=== PATIENT | male | born 1995 | race Caucasian/White ===

== ENCOUNTER 2018-03-03 22:58 | Emergency (ER) | payer OTHER ==
[2018-03-04] MEDS ORDERED: ONDANSETRON 4 MG/2 ML VIAL ONE (00:10)
[2018-03-04] MEDS ORDERED: PANTOPRAZOLE 40 MG INJ ONE (00:10)
[2018-03-04] MEDS ORDERED: MEPERIDINE HCL 50 MG/ML AMP ONE (00:10)
[2018-03-04] MEDS ORDERED: NA CHLORIDE 0.9% 1,000 ML ONE (00:10)
[2018-03-04 00:20] LABS: Absolute Monocytes 0.6 K/uL (0.1-1.3); Absolute Neutrophil 5.2 K/uL (1.8-8.0); Eosinophils % 3.1 % (0-4.4); Hematocrit 41.7 % (39.6-49.0); Lymphocytes % 24.7 % (15.3-44.8); MCH 31.4 pg (27.0-35.0); MPV 8.1 fL (7.6-11.3); Monocytes % 7.8 % (3.3-12.3); RBC Red Blood Cell Count 4.58 M/uL (4.33-5.43)
[2018-03-04 00:44] LABS: Urine Blood NEGATIVE (NEG); Urine Glucose NEGATIVE (NEG); Urine Protein NEGATIVE (NEG)
[2018-03-04 01:12] LABS: ALT/SGPT 75 U/L (12-78); AST/SGOT 23 U/L (15-37); Albumin 4.2 g/dL (3.4-5.0); Alkaline Phosphatase 105 U/L (45-117); Amylase Level 40 U/L (25-115); BUN Blood Urea Nitrogen 15 mg/dL (7-18); Bicarbonate 28 mmol/L (21-32); Bilirubin Direct 0.1 mg/dL (0-0.2); Bilirubin Total 0.5 mg/dL (0.2-1.0); Glucose Level 91 mg/dL (74-106); Lipase 100 U/L (73-393); Potassium 3.8 mmol/L (3.5-5.1); Protein, Total 7.5 g/dL (6.4-8.2); Sodium Level 141 mmol/L (136-145)
[2018-03-04 02:09] LABS: Urine Bacteria <20 /HPF (NONE SEEN); Urine Culture Reflex Order NOT NEEDED; Urine Mucus 1+ /HPF (NONE SEEN); Urine RBC <5 /HPF (NONE SEEN)
--- NOTE | 2018-03-04 02:19 | EDPHYS ---
Physician Documentation [facility] Name: Cole Ball Age: 22 yrs Sex: Male : 1995 Arrival Date: 03/03/2018 Time: 23:31 Bed 19 Private MD: ED Physician Karl Villanueva HPI: 03/04 00:18 This 22 yrs old Male presents to ER via Ambulatory with complaints of pkl Abdominal Pain. 00:18 The patient presents with abdominal pain in the upper abdomen. Onset: The pkl symptoms/episode began/occurred 2 day(s) ago. The symptoms do not radiate. Associated signs and symptoms: Pertinent positives: diarrhea. Historical: - Allergies: 03/03 23:33 Sulfa (Sulfonamide Antibiotics); fc - Home Meds: 23:33 None [Active]; fc - PMHx: 23:33 mitral valve prolapse; ulcerative colitis; fc - PSHx: 23:33 Ear Tubes; fc - Immunization history:: Last tetanus immunization: up to date. - Social history:: Smoking status: Patient/guardian denies using tobacco. - Ebola Screening: : Patient negative for fever greater than or equal to 101.5 degrees Fahrenheit, and additional compatible Ebola Virus Disease symptoms Patient denies exposure to infectious person Patient denies travel to an Ebola-affected area in the 21 days before illness onset. ROS: 03/04 00:18 Eyes: Negative for injury, pain, redness, and discharge, ENT: Negative for injury, pkl pain, and discharge, Neck: Negative for injury, pain, and swelling, Cardiovascular: Negative for chest pain, palpitations, and edema, Respiratory: Negative for shortness of breath, cough, wheezing, and pleuritic chest pain. Abdomen/GI: Positive for nausea, diarrhea, bloody. Back: Negative for acute changes. : Negative for urinary symptoms. MS/extremity: Negative for acute changes. Skin: Negative for rash. Neuro: Negative for altered mental status. Exam: 00:18 Head/Face: Normocephalic, atraumatic. Eyes: Pupils equal round and reactive to light, pkl extra-ocular motions intact. Lids and lashes normal. Conjunctiva and sclera are non-icteric and not injected. Cornea within normal limits. Periorbital areas with no swelling, redness, or edema. ENT: Nares patent. No nasal discharge, no septal abnormalities noted. Tympanic membranes are normal and external auditory canals are clear. Oropharynx with no redness, swelling, or masses, exudates, or evidence of obstruction, uvula midline. Mucous membranes moist. Neck: Trachea midline, no thyromegaly or masses palpated, and no cervical lymphadenopathy. Supple, full range of motion without nuchal rigidity, or vertebral point tenderness. No Meningismus. Chest/axilla: Normal chest wall appearance and motion. Nontender with no deformity. No lesions are appreciated. Cardiovascular: Regular rate and rhythm with a normal S1 and S2. No gallops, murmurs, or rubs. Normal PMI, no JVD. No pulse deficits. Respiratory: Lungs have equal breath sounds bilaterally, clear to auscultation and percussion. No rales, rhonchi or wheezes noted. No increased work of breathing, no retractions or nasal flaring. 00:18 Abdomen/GI: Bowel sounds: normal, Palpation: mild abdominal tenderness, in the right upper quadrant and left upper quadrant. 00:18 Back: Exam negative for acute changes. 00:18 : Exam negative for acute changes. 00:18 Musculoskeletal/extremity: Exam is negative for acute changes. 00:18 Skin: Exam negative for rash. 00:18 Neuro: Orientation: is normal, Mentation: Cranial nerves: grossly normal, Motor: is normal. Vital Signs: 03/03 23:33 BP 129 / 97; Pulse 71; Resp 20; Temp 97.7(O); Pulse Ox 100% on R/A; Weight 70.31 kg fc (R); Height 5 ft. 10 in. (177.80 cm) (R); Pain 8/10; 03/04 00:19 BP 123 / 80; Pulse 64; Resp 16; Pulse Ox 98% on R/A; lp1 01:00 BP 125 / 77; Pulse 61; Resp 16; Pulse Ox 98% on R/A; lp1 02:00 BP 117 / 79; Pulse 62; Resp 16; Pulse Ox 99% on R/A; lp1 03/03 23:33 Body Mass Index 22.24 (70.31 kg, 177.80 cm) fc MDM: 03/03 23:49 Patient medically screened. pkl 03/04 02:17 Data reviewed: vital signs, nurses notes, lab test result(s). ED course: Patient left pkl before CT Scan done. Signed AMA. 03/03 23:55 Order name: Amylase, Serum; Complete Time: 02:00 pkl 03/03 23:55 Order name: Basic Metabolic Panel; Complete Time: 02:00 pkl 03/03 23:55 Order name: CBC with Diff; Complete Time: 02:00 pkl 03/03 23:55 Order name: Creatinine for Radiology; Complete Time: 02:00 pkl 03/03 23:55 Order name: Hepatic Function; Complete Time: 02:00 pkl 03/03 23:55 Order name: Lipase; Complete Time: 02:00 pkl 03/03 23:55 Order name: Urine Microscopic Only; Complete Time: 03:07 pkl 03/04 00:03 Order name: Urine Dipstick--Ancillary (enter results); Complete Time: 02:00 ms 03/03 23:55 Order name: IV Saline Lock; Complete Time: 00:17 pkl 03/03 23:55 Order name: Labs collected and sent; Complete Time: 00:17 pkl 03/03 23:55 Order name: Urine Dipstick-Ancillary (obtain specimen); Complete Time: 00:02 pkl Administered Medications: 00:17 Drug: NS 0.9% 1000 ml Route: IV; Rate: 1000 ml; Site: right antecubital; lp1 02:19 Follow up: IV Status: Completed infusion; IV Intake: 1000ml lp1 00:17 Drug: Demerol 50 mg Route: IVP; Site: right antecubital; lp1 01:04 Follow up: Response: Pain is decreased lp1 00:17 Drug: Zofran 4 mg Route: IVP; Site: right antecubital; lp1 01:37 Follow up: Response: No adverse reaction lp1 00:17 Drug: ProTONIX 40 mg Route: IVP; Site: right antecubital; lp1 01:37 Follow up: Response: No adverse reaction lp1 Disposition: 03/04/18 02:19 Patient has left against medical advice. - Patients states they are going to Home. - Condition is Stable. Signatures: Dispatcher [employer] EDMS Karl Villanueva MD MD pkl Cheryl Esteves RN RN Leigha Calderon RN RN lp1
--- NOTE | 2018-03-04 02:19 | ER ---
Nurse's Notes [facility] Name: Cole Ball Age: 22 yrs Sex: Male : 1995 Arrival Date: 03/03/2018 Time: 23:31 Bed 19 Private MD: Diagnosis: Presentation: 03/03 23:31 Presenting complaint: Patient states: that for 2 days he has been having upper abd pain fc and diarrhea. States that he is having blood in his diarrhea. Also having nausea and vomiting. Transition of care: patient was not received from another setting of care. Onset of symptoms was March 01, 2018. Risk Assessment: Do you want to hurt yourself or someone else? Patient reports no desire to harm self or others. Care prior to arrival: None. 23:31 Method Of Arrival: Ambulatory 23:31 Acuity: CHRIS 3 03/04 00:20 Initial Sepsis Screen: Does the patient meet any 2 criteria? No. Patient's initial lp1 sepsis screen is negative. Does the patient have a suspected source of infection? No. Patient's initial sepsis screen is negative. Historical: - Allergies: 03/03 23:33 Sulfa (Sulfonamide Antibiotics); fc - Home Meds: 23:33 None [Active]; fc - PMHx: 23:33 mitral valve prolapse; ulcerative colitis; fc - PSHx: 23:33 Ear Tubes; fc - Immunization history:: Last tetanus immunization: up to date. - Social history:: Smoking status: Patient/guardian denies using tobacco. - Ebola Screening: : Patient negative for fever greater than or equal to 101.5 degrees Fahrenheit, and additional compatible Ebola Virus Disease symptoms Patient denies exposure to infectious person Patient denies travel to an Ebola-affected area in the 21 days before illness onset. Screenin/28 00:20 Abuse screen: Denies threats or abuse. Denies injuries from another. Nutritional lp1 screening: No deficits noted. Tuberculosis screening: No symptoms or risk factors identified. Fall Risk None identified. Assessment: 00:18 General: Appears uncomfortable, Behavior is appropriate for age. Pain: Complains of lp1 pain in epigastric area Pain currently is 9 out of 10 on a pain scale. Quality of pain is described as stabbing, Pain began 2-3 days ago. Neuro: Level of Consciousness is awake, alert, obeys commands. Cardiovascular: Patient's skin is warm and dry. Respiratory: Respiratory effort is even, unlabored, Respiratory pattern is regular, Breath sounds are clear bilaterally. GI: Abdomen is non-distended, Bowel sounds present X 4 quads. Abdomen is tender to palpation in epigastric area Reports rectal bleeding, nausea. : No signs and/or symptoms were reported regarding the genitourinary system. EENT: No signs and/or symptoms were reported regarding the EENT system. Derm: Skin is pink, warm \\T\\ dry. Musculoskeletal: Circulation, motion, and sensation intact. 01:30 Reassessment: Patient appears in no apparent distress at this time. Patient and/or lp1 family updated on plan of care and expected duration. Pain level reassessed. Pain decreased at this time. 02:15 Reassessment: Patient declines to have CT done. Reassessment: Patient states "I don't lp1 want to wait anymore, I'd rather be asleep in my bed"; Patient states abdominal pain returned but does not want to wait for CT results; Patient states "I just need to get a work note"; Provider aware. Vital Signs: 03/03 23:33 BP 129 / 97; Pulse 71; Resp 20; Temp 97.7(O); Pulse Ox 100% on R/A; Weight 70.31 kg fc (R); Height 5 ft. 10 in. (177.80 cm) (R); Pain 8/10; 03/04 00:19 BP 123 / 80; Pulse 64; Resp 16; Pulse Ox 98% on R/A; lp1 01:00 BP 125 / 77; Pulse 61; Resp 16; Pulse Ox 98% on R/A; lp1 02:00 BP 117 / 79; Pulse 62; Resp 16; Pulse Ox 99% on R/A; lp1 03/03 23:33 Body Mass Index 22.24 (70.31 kg, 177.80 cm) ED Course: 03/03 23:31 Patient arrived in ED. fc 23:32 Triage completed. fc 23:33 Arm band placed on Patient placed in an exam room, on a stretcher. fc 23:39 Leigha Calderon RN is Primary Nurse. lp1 23:49 Karl Villanueva MD is Attending Physician. pkl 03/04 00:07 Inserted saline lock: 20 gauge in right antecubital area, using aseptic technique. oe Blood collected. 00:20 Patient has correct armband on for positive identification. Pulse ox on. NIBP on. lp1 02:17 No provider procedures requiring assistance completed. IV discontinued, No lp1 redness/swelling at site. Pressure dressing applied. Administered Medications: 00:17 Drug: NS 0.9% 1000 ml Route: IV; Rate: 1000 ml; Site: right antecubital; lp1 02:19 Follow up: IV Status: Completed infusion; IV Intake: 1000ml lp1 00:17 Drug: Demerol 50 mg Route: IVP; Site: right antecubital; lp1 01:04 Follow up: Response: Pain is decreased lp1 00:17 Drug: Zofran 4 mg Route: IVP; Site: right antecubital; lp1 01:37 Follow up: Response: No adverse reaction lp1 00:17 Drug: ProTONIX 40 mg Route: IVP; Site: right antecubital; lp1 01:37 Follow up: Response: No adverse reaction lp1 Intake: 02:19 IV: 1000ml; Total: 1000ml. lp1 Outcome: 02:17 AMA AMA form signed lp1 02:17 Condition: stable 02:17 Instructed on returning if symptoms return or worsen 02:19 Patient left the ED. lp1 Signatures: Karl Villanueva MD MD pkl Chretien, Felicia RN RN Leigha Calderon RN RN lp1 Frandy Rajan Corrections: (The following items were deleted from the chart) 02:18 02:15 Reassessment: Patient states "I don't want to wait anymore, I'd rather be asleep lp1 in my bed"; Patient states abdominal pain returned but does not want to wait for CT results; Provider aware lp1
== END 2018-03-04 02:19 | disposition left against medical advice (07) ==
LOC: ER 22:58
DX: R10.10 Upper abdominal pain, unspecified (principal); R19.7 Diarrhea, unspecified; Z88.0 Allergy status to penicillin
CPT/HCPCS: 36415; 80048; 80076; 81003; 81015; 82150; 83690; 85025; 96361; 96374; 96375; 99284; C9113; J2175; J2405; J7030

== ENCOUNTER 2018-12-25 17:42 | Emergency (ER) | payer OTHER ==
--- OUTSIDE RECORDS SUMMARY | 2018-12-25 17:44 | XMS REPORT | Summary of Care ---
:1995 Author Organization [facility] Address [address] [place] [id number] Encounter HQ Kavya(FIN) [id number] Date(s): 03/05/18 - 03/05/[address] [phone] Encounter Diagnosis Epigastric pain (Final) - 03/09/18 Personal history of nicotine dependence (Final) - Nausea (Final) - Abdominal pain, acute, epigastric (Discharge Diagnosis) - 03/05/18 Discharge Disposition: Home or Self Care Attending Physician: Gilberto Rodríguez MD Vital Signs Most recent to oldest [Reference Range]: 1 2 Height 165.1 cm (03/05/18 12:40 PM) Temperature Oral [96.4-99.1 DegF] 98.4 DegF 98.4 DegF (03/05/18 3:32 PM) (03/05/18 12:40 PM) Blood Pressure [90-140/60-90 mmHg] 123/68 mmHg 128/79 mmHg (03/05/18 3:32 PM) (03/05/18 12:40 PM) Respiratory Rate [14-20 BRMIN] 18 BRMIN 18 BRMIN (03/05/18 3:32 PM) (03/05/18 12:40 PM) Peripheral Pulse Rate [60-100 bpm] 67 bpm 82 bpm (03/05/18 3:32 PM) (03/05/18 12:40 PM) Weight 70.455 kg (03/05/18 12:40 PM) Body Mass Index 25.85 m2 (03/05/18 12:40 PM) Problem List No data available for this section Allergies, Adverse Reactions, Alerts Substance Reaction Severity Status sulfa drugs Active Medications GI cocktail 30 mL, Route: PO, Drug Form: SUSP, Dosing Weight 70.455, kg, ONCE, STAT, Start date: 03/05/18 12:42:00 CDT, Stop date: 03/05/18 12:42:00 CDT Notes: G.I. Cocktail - aluminum hydroxide/magnesium hydroxide/lidocaine/ simethicone Start Date: 03/05/18 Stop Date: 03/05/18 Status: Completedmorphine Sulfate 4 mg, 1 mL, Route: IVP, Drug form: SOLN, ONCE, Dosing Weight 70.455, kg, Priority: STAT, Start date:03/05/18 12:42:00 CDT, Stop date: 03/05/18 12:42:00 CDT Notes: (Same as:MORPhine Sulfate) Start Date: 03/05/18 Stop Date: 03/05/18 Status: Completedondansetron 4 mg, 2 mL, Route: IVP, Drug form: INJ, ONCE, Dosing Weight 70.455, kg, Priority : STAT, Start date: 03/05/18 12:42:00 CDT, Stop date: 03/05/18 12:42:00 CDT Notes: (Same as: Laurence) MEDICATION WASTE Product Size: 4 mgProduct Wasted: ___ mg Start Date: 03/05/18 Stop Date: 03/05/18 Status: CompletedPepcid 40 mg oral tablet 40 mg=1 tab, PO, Daily, # 30 tab, 0 Refill(s) Start Date: 03/05/18 Stop Date: 04/04/18 Status: OrderedSaline Flush 0.9% 10 mL, Route: IVP, Drug Form: INJ, Dosing Weight 70.455, kg, PRN, PRN Line Flush , Start date: 03/05/18 12:42:00 CDT, Duration: 30 day, Stop date: 04/04/18 12:41 :00 CDT Notes: (Same as: BD Posiflush) Start Date: 03/05/18 Stop Date: 03/05/18 Status: DiscontinuedSodium Chloride 0.9% (Bolus) IV 1,000 mL, 1000 ml/hr, Infuse Over: 1 hr, Route: IV, 1,000, Drug form: INJ, ONCE , Priority: STAT, Dosing Weight 70.455 kg, Start date: 03/05/18 12:42:00 CDT, Stop date: 03/05/18 12:42:00 CDT Start Date: 03/05/18 Stop Date: 03/05/18 Status: Completed Results ELECTROLYTES Most recent to oldest [Reference Range]: 1 Sodium Lvl [135-145 mEq/L] 141 mEq/L (03/05/18 1:56 PM) Potassium Lvl [3.5-5.1 mEq/L] 4.1 mEq/L (03/05/18 1:56 PM) Chloride Lvl [95-109 mEq/L] 104 mEq/L (03/05/18 1:56 PM) CO2 [24-32 mEq/L] 33 mEq/L *HI* (03/05/18 1:56 PM) AGAP [10.0-20.0 mEq/L] 8.1 mEq/L *LOW* (03/05/18 1:56 PM) CHEM PANEL Most recent to oldest [Reference Range]: 1 Creatinine Lvl [0.50-1.40 mg/dL] 0.96 mg/dL (03/05/18 1:56 PM) eGFR 112 mL/min/1.73m2 1 *NA* (03/05/18 1:56 PM) BUN [7-22 mg/dL] 12 mg/dL (03/05/18 1:56 PM) B/C Ratio [6-25] 12 (03/05/18 1:56 PM) Glucose Lvl [70-99 mg/dL] 79 mg/dL (03/05/18 1:56 PM) Total Protein [6.4-8.4 g/dL] 8.1 g/dL (03/05/18 1:56 PM) Albumin Lvl [3.5-5.0 g/dL] 4.6 g/dL (03/05/18 1:56 PM) Globulin [2.7-4.2 g/dL] 3.5 g/dL (03/05/18 1:56 PM) A/G Ratio [0.7-1.6] 1.3 (03/05/18 1:56 PM) Calcium Lvl [8.5-10.5 mg/dL] 9.6 mg/dL (03/05/18 1:56 PM) ALT [0-65 unit/L] 65 unit/L (03/05/18 1:56 PM) AST [0-37 unit/L] 29 unit/L (03/05/18 1:56 PM) Alk Phos [39-136 unit/L] 125 unit/L (03/05/18 1:56 PM) Bili Total [0.2-1.3 mg/dL] 0.6 mg/dL (03/05/18 1:56 PM) Lipase Lvl [73-393 unit/L] 87 unit/L (03/05/18 1:56 PM) 1Result Comment: The eGFR is calculated using the CKD-EPI formula. In most young , healthy individualsthe eGFR will be >90 mL/min/1.73m2. The eGFR declines with age. An eGFR of 60-89 may be normal insome populations, particularly the elderly, for whom the CKD-EPI formula has not been extensively validated. Use of the eGFR is not recommended in the following populations: Individuals with unstable creatinine concentrations, including patients and those with serious co-morbid conditions. Patients with extremes in muscle mass or diet. The data above are obtained from the National Kidney Disease Education Program ( NKDEP) which additionally recommends that when the eGFR is used in patients with extremes of body mass index for purposesof drug dosing, the eGFR should be multiplied by the estimated BMI.URINE AND STOOL Most recent to oldest [Reference Range]: 1 UA Turbidity [Clear] Clear (03/05/18 1:56 PM) UA Color [Yellow] Yellow *NA* (03/05/18 1:56 PM) UA pH [5.0-8.0] 6.0 (03/05/18 1:56 PM) UA Spec Grav [<=1.030] 1.017 (03/05/18 1:56 PM) UA Glucose [Negative mg/dL] Negative mg/dL *NA* (03/05/18 1:56 PM) UA Blood [Negative] Negative (03/05/18 1:56 PM) UA Ketones [Negative mg/dL] Negative mg/dL *NA* (03/05/18 1:56 PM) UA Protein [Negative mg/dL] Negative mg/dL (03/05/18 1:56 PM) UA Urobilinogen [0.1-1.0 mg/dL] 2.0 mg/dL *HI* (03/05/18 1:56 PM) UA Bili [Negative] Negative *NA* (03/05/18 1:56 PM) UA Leuk Est [Negative] Negative (03/05/18 1:56 PM) UA Nitrite [Negative] Negative (03/05/18 1:56 PM) UA WBC [0-5 /HPF] <1 /HPF (03/05/18 1:56 PM) UA RBC [0-2 /HPF] 7 /HPF *HI* (03/05/18 1:56 PM) UA Bacteria [None Seen /HPF] Occasional /HPF *NA* (03/05/18 1:56 PM) UA Sq Epi [Few /LPF] Occasional /LPF *NA* (03/05/18 1:56 PM) UA Mucus [None Seen /LPF] Many /LPF *ABN* (03/05/18 1:56 PM) Occult Bld Stl [Negative] Negative (03/05/18 2:03 PM) HEMATOLOGY Most recent to oldest [Reference Range]: 1 WBC [3.7-10.4 K/CMM] 6.6 K/CMM (03/05/18 1:56 PM) RBC [4.70-6.10 M/CMM] 4.97 M/CMM (03/05/18 1:56 PM) Hgb [14.0-18.0 g/dL] 15.6 g/dL (03/05/18 1:56 PM) Hct [42.0-54.0 %] 44.7 % (03/05/18 1:56 PM) MCV [80.0-94.0 fL] 89.8 fL (03/05/18 1:56 PM) MCH [27.0-31.0 pg] 31.3 pg *HI* (03/05/18 1:56 PM) MCHC [32.0-36.0 g/dL] 34.8 g/dL (03/05/18 1:56 PM) RDW [11.5-14.5 %] 12.9 % (03/05/18 1:56 PM) MPV [7.4-10.4 fL] 8.0 fL (03/05/18 1:56 PM) Platelet [133-450 K/CMM] 311 K/CMM (03/05/18 1:56 PM) Segs [45.0-75.0 %] 51.6 % (03/05/18 1:56 PM) Lymphocytes [20.0-40.0 %] 33.2 % (03/05/18 1:56 PM) Monocytes [2.0-12.0 %] 8.3 % (03/05/18 1:56 PM) Eosinophils [0.0-4.0 %] 5.8 % *HI* (03/05/18 1:56 PM) Basophils [0.0-1.0 %] 1.1 % *HI* (03/05/18 1:56 PM) Neutrophils # [1.5-8.1 K/CMM] 3.4 K/CMM (03/05/18 1:56 PM) Lymphocytes # [1.0-5.5 K/CMM] 2.2 K/CMM (03/05/18 1:56 PM) Monocytes # [0.0-0.8 K/CMM] 0.5 K/CMM (03/05/18 1:56 PM) Eosinophils # [0.0-0.5 K/CMM] 0.4 K/CMM (03/05/18 1:56 PM) Basophils # [0.0-0.2 K/CMM] 0.1 K/CMM (03/05/18 1:56 PM) Immunizations No data available for this section Procedures Procedure Date Related Diagnosis Body Site Status Otoplasty Completed Social History Social History Type Response Alcohol Current, Type Beer. Frequency: 1-2 times per week. Smoking Status Former smoker; Exposure to Tobacco Smoke None; Cigarette Smoking Last 365 Days No; Reg Smoking Cessation Counseling No entered on: 03/05/18 Assessment and Plan No data available for this section
--- OUTSIDE RECORDS SUMMARY | 2018-12-25 17:44 | XMS REPORT | Continuity of Care Document ---
:1995 Author Organization Interface Problems Problem Status Onset Classification Date Comments Source Date Reported Epigastric 09/22/2018 [facility] pain 8 Abdominal 09/22/2018 [facility] pain, acute, 8 epigastric ABD PAIN Active [facility] 8 [facility] GI- ABD Active [place] [facility] Personal 09/22/2018 [facility] history of nicotine dependence Nausea 09/22/2018 [facility] Medications Medication Details Route Status Patient Ordering Order Source Instructions Provider Date Famotidine 40 40 mg=1 tab, Active MG Oral Tablet PO, Daily, # 018 [facility] [Pepcid] 30 tab, 0 Refill(s) GI cocktail 30 mL, Route: Inactive PO, Drug 018 [facility] Form: SUSP, Dosing Weight 70.455, kg, ONCE, STAT, Start date: 03/05/18 12:42:00 CDT, Stop date: 03/05/18 12:42:00 CDTNotes: G.I. Cocktail - aluminum hydroxide/mag nesium hydroxide/lid ocaine/simeth icone Ondansetron 4 mg, 2 mL, Inactive Route: IVP, 018 [facility] Drug form: INJ, ONCE, Dosing Weight 70.455, kg, Priority: STAT, Start date: 03/05/18 12:42:00 CDT, Stop date: 03/05/18 12:42:00 CDTNotes: (Same as: Zofrcharmaine) MEDICATION WASTE Product Size: 4 mg Product Wasted: ___ mg Morphine 4 mg, 1 mL, Inactive Route: IVP, 018 [facility] Drug form: SOLN, ONCE, Dosing Weight 70.455, kg, Priority: STAT, Start date: 03/05/18 12:42:00 CDT, Stop date: 03/05/18 12:42:00 CDTNotes: (Same as:MORPhine Sulfate) Sodium 1,000 mL, Inactive MH Chloride 0.9% 1000 ml/hr, 018 [facility] (Bolus) IV Infuse Over: 1 hr, Route: IV, 1,000, Drug form: INJ, ONCE, Priority: STAT, Dosing Weight 70.455 kg, Start date: 03/05/18 12:42:00 CDT, Stop date: 03/05/18 12:42:00 CDT Saline Flush 10 mL, Route: Inactive MH 0.9% IVP, Drug 018 [facility] Form: INJ, Dosing Weight 70.455, kg, PRN, PRN Line Flush, Start date: 03/05/18 12:42:00 CDT, Duration: 30 day, Stop date: 04/04/18 12:41:00 CDTNotes: (Same as: BD Posiflush) Allergies, Adverse Reactions, Alerts Substance Category Reaction Severity Reaction Status Date Comments Source type Reported sulfa drugs Assertion Drug Active allergy [facility] Immunizations Immunization Date Given Site Status Last Updated Comments Source Results Order Name Results Value Reference Date Interpretation Comments Source Range URINE AND Occult Bld Negative Negative 03/05 STOOL Stl /2017 [facility] (03/05/18 2:03 PM) CHEM PANEL Lipase Lvl 87 unit/L 73 - 393 03/05 [facility] CHEM PANEL Bili Total 0.6 mg/dL 0.2 - 1.3 03/05 [facility] CHEM PANEL Alk Phos 125 unit/L 39 - 136 03/05 [facility] CHEM PANEL eGFR 112 03/05 Result Comment: The eGFR is calculated using the CKD-EPI formula. In most young, healthy individuals the eGFR will be >90 mL/ min/1.73m2. The eGFR declines with age. An eGFR of 60-89 may be normal in MH mL/min/1.7 some populations, particularly the elderly, for whom the CKD-EPI formula has not been extensively validated. Use of the eGFR is not recommended in the following populations: [facility] 3m2 Individuals with unstable creatinine concentrations, including patients and those with serious co-morbid conditions. Patients with extremes in muscle mass or diet. The data above are obtained from the National Kidney Disease Education Program (NKDEP) which additionally recommends that when the eGFR is used in patients with extremes of body mass index for purposes of drug dosing, the eGFR should be multiplied by the estimated BMI. CHEM PANEL AST 29 unit/L 0 - 37 03/05 [facility] CHEM PANEL ALT 65 unit/L 0 - 65 03/05 [facility] CHEM PANEL BUN 12 mg/dL 7 - 22 03/05 [facility] CHEM PANEL Glucose Lvl 79 mg/dL 70 - 99 03/05 [facility] CHEM PANEL Potassium 4.1 meq/L 3.5 - 5.1 03/05 MH Lvl [facility] CHEM PANEL Sodium Lvl 141 meq/L 135 - 145 03/05 [facility] CHEM PANEL Creatinine 0.96 mg/dL 0.50 - 03/05 MH Lvl 1.40 [facility] CHEM PANEL Calcium Lvl 9.6 mg/dL 8.5 - 10.5 03/05 [facility] CHEM PANEL Chloride Lvl 104 meq/L 95 - 109 03/05 [facility] CHEM PANEL CO2 33 meq/L 24 - 32 03/05 [facility] CHEM PANEL Total 8.1 g/dL 6.4 - 8.4 03/05 [facility] CHEM PANEL Albumin Lvl 4.6 g/dL 3.5 - 5.0 03/05 [facility] CHEM PANEL AGAP 8.1 meq/L 10.0 - 03/05 MH 20. [facility] CHEM PANEL Globulin 3.5 g/dL 2.7 - 4.2 03/05 [facility] CHEM PANEL A/G Ratio 1.3 0.7 - 1.6 03/05 [facility] CHEM PANEL B/C Ratio 12 6 - 25 03/05 [facility] HEMATOLOGY MCH 31.3 pg 27.0 - 03/05 MH 31.0 [facility] HEMATOLOGY Hct 44.7 % 42.0 - 03/05 MH 54.0 [facility] HEMATOLOGY Hgb 15.6 g/dL 14.0 - 03/05 MH 18. [facility] HEMATOLOGY WBC 6.6 K/CMM 3.7 - 10.4 03/05 [facility] HEMATOLOGY RDW 12.9 % 11.5 - 03/05 MH 14. [facility] HEMATOLOGY MCHC 34.8 g/dL 32.0 - 03/05 MH 36.0 [facility] HEMATOLOGY MCV 89.8 fL 80.0 - 03/05 MH 94.0 [facility] HEMATOLOGY RBC 4.97 M/CMM 4.70 - 03/05 MH 6.10 [facility] HEMATOLOGY MPV 8.0 fL 7.4 - 10.4 03/05 [facility] HEMATOLOGY Platelet 311 K/CMM 133 - 450 03/05 [facility] HEMATOLOGY Basophils # 0.1 K/CMM 0.0 - 0.2 03/05 [facility] HEMATOLOGY Eosinophils 0.4 K/CMM 0.0 - 0.5 03/05 MH # [facility] HEMATOLOGY Monocytes # 0.5 K/CMM 0.0 - 0.8 03/05 [facility] HEMATOLOGY Neutrophils 3.4 K/CMM 1.5 - 8.1 03/05 [facility] HEMATOLOGY Lymphocytes 2.2 K/CMM 1.0 - 5.5 03/05 [facility] HEMATOLOGY Segs 51.6 % 45.0 - 03/05 MH 75.0 [facility] HEMATOLOGY Eosinophils 5.8 % 0.0 - 4.0 03/05 [facility] HEMATOLOGY Basophils 1.1 % 0.0 - 1.0 03/05 [facility] HEMATOLOGY Lymphocytes 33.2 % 20.0 - 03/05 MH 40.0 [facility] HEMATOLOGY Monocytes 8.3 % 2.0 - 12.0 03/05 [facility] URINE AND UA Sq Epi Occasional Few /LPF 03/05 STOOL /LPF [facility] URINE AND UA WBC null 0 - 5 03/05 STOOL [facility] URINE AND UA Nitrite Negative Negative 03/05 STOOL [facility] (03/05/18 1:56 PM) URINE AND UA Leuk Est Negative Negative 03/05 STOOL [facility] (03/05/18 1:56 PM) URINE AND UA 2.0 mg/dL 0.1 - 1.0 03/05 STOOL Urobilinogen [facility] URINE AND UA Mucus Many /LPF None Seen 03/05 STOOL /LPF [facility] URINE AND UA RBC 7 /HPF 0 - 2 03/05 STOOL [facility] URINE AND UA Bacteria Occasional None Seen 03/05 STOOL /HPF /HPF /2017 [facility] URINE AND UA Spec Grav 1.017 <=1.030 03/05 [facility] URINE AND UA pH 6.0 5.0 - 8.0 03/05 STOOL [facility] URINE AND UA Color Yellow Yellow 03/05 STOOL [facility] *NA* (03/05/18 1:56 PM) URINE AND UA Turbidity Clear Clear 03/05 STOOL [facility] (03/05/18 1:56 PM) URINE AND UA Protein Negative Negative 03/05 STOOL mg/dL mg/dL [facility] URINE AND UA Bili Negative Negative 03/05 STOOL [facility] *NA* (03/05/18 1:56 PM) URINE AND UA Blood Negative Negative 03/05 STOOL [facility] (03/05/18 1:56 PM) URINE AND UA Glucose Negative Negative 03/05 STOOL mg/dL mg/dL [facility] URINE AND UA Ketones Negative Negative 03/05 STOOL mg/dL mg/dL [facility] Abdomen RUQ Abdomen RUQ Clinical Indication: - Upper abdominal pain and right upper quadrant pain 03/05 - [facility] US US /2017 - [place] Comparison: Abdominal ultrasound October 07, 2009. Read by: Candelario Caceres MD Dictated Date/time: 03/05/18 13:21 TECHNIQUE: Electronically Signed by: Candelario Caceres MD 03/05/18 13:24 FINAL REPORT Grayscale and limited color sonographic evaluation of the right upper quadrant of the abdomen and gallbladder region was performed with standard technique. FINDINGS: LIVER: The liver is uniform in echogenicity. The liver continues to be mildly enlarged, extending past the lower pole of the adjacent right kidney. No focal lesions or biliary duct dilatation. BILE DUCTS: The intrahepatic bile ducts are not appreciably dilated. The common bile duct measures 1 mm. The distal common bile duct is not well seen. GALLBLADDER: There are no stones, wall thickening or pericholecystic fluid. PANCREAS: Limited visualization due to overlying bowel gas. KIDNEY: The right kidney measures 9.4 cm. There is normal renal contour and morphology, with normal parenchymal echotexture. There is no hydronephrosis. AORTA AND INFERIOR VENA CAVA: Visualized portions appear unremarkable. ASCITES: There is no right upper quadrant abdominal ascites. IMPRESSION: The hepatic silhouette continues to be mildly enlarged. SL: WR3-M Vital Signs Vital Sign Value Date Comments Source Heart Rate 67 03/05/2018 [facility] Temperature Oral (F) 98.4 F 03/05/2018 [facility] Respitory Rate 18 03/05/2018 [facility] Systolic (mm Hg) 123 03/05/2018 [facility] Diastolic (mm Hg) 68 03/05/2018 [facility] Temperature Oral (F) 98.4 F 03/05/2018 [facility] Height 165.1 cm 03/05/2018 [facility] Weight 70.455 03/05/2018 [facility] BMI Calculated 25.85 03/05/2018 [facility] Respitory Rate 18 03/05/2018 [facility] Heart Rate 82 03/05/2018 [facility] Systolic (mm Hg) 128 03/05/2018 [facility] Diastolic (mm Hg) 79 03/05/2018 [facility] Encounters Location Location Encounter Encounter Reason Attending ADM DC Status Source Details Type Number For Provider Date Date Visit [facility] Outpatient [id number] TAL CALLAHAN 01/24 Active [facility] Medical GI- ABD BHARATI JR /2011 [facility] PAIN Center LACTO SE [facility] Emergency [id number] Gilberto 03/05 03/05 [facility] Rodríguez /2017 [facility] Outpatient [id number] Osvaldo 11/13 Active [facility] [place] /2018 [facility] Procedures Procedure Code Date Perfomer Comments Source Otoplasty [id number] [facility]
--- OUTSIDE RECORDS SUMMARY | 2018-12-25 17:44 | XMS REPORT | Summary of Care ---
:1995 Author Organization [facility] Address [address] [place] [id number] Encounter HQ Kavya(FIN) [id number] Date(s): 03/05/18 - 03/05/[address] [phone] Encounter Diagnosis Abdominal pain, acute, epigastric (Discharge Diagnosis) - [...] %] 1.1 % *HI* (03/05/18 1:56 PM) Segs-Bands # [1.5-8.1 K/CMM] 3.4 K/CMM (03/05/18 1:56 [...]
--- OUTSIDE RECORDS SUMMARY | 2018-12-25 17:45 | XMS REPORT | CCD ---
:1995 Author Organization [facility] Care Team Providers Name Role Phone Mayur Medina Jr Referring Provider Allergies, Adverse Reactions, Alerts Substance Reaction Status NKDA Canceled sulfa drugs Active
--- NOTE | 2018-12-25 18:55 | EDPHYS ---
Physician Documentation [facility] Name: Cole Ball Age: 23 yrs Sex: Male : 1995 Arrival Date: 12/25/2018 Time: 17:44 Bed 12 Private MD: ED Physician Kevin Pickett HPI: 12/25 18:46 This 23 yrs old Male presents to ER via Ambulatory with complaints of cp Anxiety, Medication Refill. 18:46 The patient presents to the emergency department requesting refill(s) for: Klonopin. cp The patient chronically suffers from anxiety. 18:48 Patient reports running out of prescribed Klonopin 2 days ago and not having appt until cp 01-04-2019 with psychiatry. 18:48 No other complaints voiced when asked. cp Historical: - Allergies: 17:56 Sulfa (Sulfonamide Antibiotics); aj1 - Home Meds: 17:56 Klonopin Oral [Active]; Zoloft Oral [Active]; [place] Carbonate Oral [Active]; aj1 - PMHx: 17:56 mitral valve prolapse; ulcerative colitis; aj1 - Immunization history:: Flu vaccine is not up to date. - Social history:: Smoking status: Patient/guardian denies using tobacco. - Ebola Screening: : Patient denies travel to an Ebola-affected area in the 21 days before illness onset. ROS: 18:49 Constitutional: Negative for body aches, chills, fever. cp 18:49 Neuro: Negative for altered mental status, headache, weakness. 18:49 Psych: Positive for anxiety, Negative for auditory hallucinations, visual hallucinations, suicide gesture, suicidal ideation. 18:49 All other systems are negative. Exam: 18:50 Head/Face: Normocephalic, atraumatic. cp 18:50 Constitutional: The patient appears in no acute distress, alert, awake, non-toxic, well developed, well nourished. 18:50 Chest/axilla: Inspection: normal. 18:50 Cardiovascular: Rate: normal. 18:50 Respiratory: the patient does not display signs of respiratory distress, Respirations: normal, no use of accessory muscles, no retractions, no splinting, no tachypnea. 18:50 Abdomen/GI: Inspection: abdomen appears normal. 18:50 Neuro: Orientation: to person, place \T\ time. Mentation: is normal. 18:50 Psych: Behavior/mood is pleasant, cooperative, Affect is calm, Patient has no thoughts/intents to harm self or others. Judgement / Insight is normal. Vital Signs: 17:56 BP 156 / 98; Pulse 84; Resp 18; Temp 97.6; Pulse Ox 97% on R/A; Weight 79.38 kg (R); aj1 Height 5 ft. 10 in. (177.80 cm) (R); Pain 6/10; 17:56 Body Mass Index 25.11 (79.38 kg, 177.80 cm) aj1 MDM: 18:41 Patient medically screened. cp 18:51 Data reviewed: vital signs, nurses notes, I have discussed the patient's cp presentation/case with the attending Emergency Department Physician; and as a result, I will discharge patient. Administered Medications: No medications were administered Disposition: 19:00 Chart complete. cp 12/26 07:02 Co-signature as Attending Physician, Kevin Pickett MD. rn Disposition: 12/25/18 18:54 Discharged to Home. Impression: Medication refill. - Condition is Stable. - Prescriptions for Klonopin 1 mg Oral Tablet - take 1 tablet by ORAL route every 12 hours As needed; 15 tablet. - Medication Reconciliation Form, Thank You Letter, Antibiotic Education, Prescription Opioid Use form. - Follow up: Private Physician; When: 2 - 3 days; Reason: Recheck today's complaints. - Problem is new. - Symptoms have improved. Signatures: Myranda Lyles RN RN aj1 Kevin Pickett MD MD rn Page, Corey, PA PA Kira Cortez RN RN hb Corrections: (The following items were deleted from the chart) 12/25 19:26 18:54 12/25/2018 18:54 Discharged to Home. Impression: Medication refill. Condition is hb Stable. Forms are Medication Reconciliation Form, Thank You Letter, Antibiotic Education, Prescription Opioid Use. Follow up: Private Physician; When: 2 - 3 days; Reason: Recheck today's complaints. Problem is new. Symptoms have improved. cp
--- NOTE | 2018-12-25 18:55 | ER ---
Nurse's Notes [facility] Name: Cole Ball Age: 23 yrs Sex: Male : 1995 Arrival Date: 12/25/2018 Time: 17:44 Bed 12 Private MD: Diagnosis: Medication refill Presentation: 12/25 17:54 Presenting complaint: Patient states: "I ran out of my medicine, Klonopin, for 2 days aj1 and I've been getting the shakes real bad, and I don't have an appointment until the , so I was told I could come here to get an emergency refill until I get in to see him". Transition of care: patient was not received from another setting of care. Onset of symptoms was December 25, 2018. Risk Assessment: Do you want to hurt yourself or someone else? Patient reports no desire to harm self or others. Initial Sepsis Screen: Does the patient meet any 2 criteria? HR > 90 bpm. No. Patient's initial sepsis screen is negative. Does the patient have a suspected source of infection? No. Patient's initial sepsis screen is negative. Care prior to arrival: None. 17:54 Method Of Arrival: Ambulatory aj1 17:54 Acuity: CHRIS 5 aj1 Triage Assessment: 17:56 General: Appears in no apparent distress. comfortable, Behavior is calm, cooperative, aj1 appropriate for age. Pain: Complains of pain in abdomen Pain currently is 6 out of 10 on a pain scale. Neuro: Level of Consciousness is awake, alert, obeys commands, Oriented to person, place, time, situation. Cardiovascular: Patient's skin is warm and dry. Respiratory: Airway is patent Respiratory effort is even, unlabored, Respiratory pattern is regular, symmetrical. Historical: - Allergies: 17:56 Sulfa (Sulfonamide Antibiotics); aj1 - Home Meds: 17:56 Klonopin Oral [Active]; Zoloft Oral [Active]; [place] Carbonate Oral [Active]; aj1 - PMHx: 17:56 mitral valve prolapse; ulcerative colitis; aj1 - Immunization history:: Flu vaccine is not up to date. - Social history:: Smoking status: Patient/guardian denies using tobacco. - Ebola Screening: : Patient denies travel to an Ebola-affected area in the 21 days before illness onset. Screenin:44 Abuse screen: Denies threats or abuse. Denies injuries from another. Nutritional hb screening: No deficits noted. Tuberculosis screening: No symptoms or risk factors identified. Fall Risk None identified. Assessment: 18:44 General: Appears in no apparent distress. Behavior is calm, cooperative. Pain: Denies hb pain. Neuro: Level of Consciousness is awake, alert, obeys commands, Oriented to person, place, time, situation. Cardiovascular: Capillary refill < 3 seconds Patient's skin is warm and dry. Respiratory: Airway is patent Respiratory effort is even, unlabored, Respiratory pattern is regular, symmetrical. GI: No signs and/or symptoms were reported involving the gastrointestinal system. : No signs and/or symptoms were reported regarding the genitourinary system. EENT: No signs and/or symptoms were reported regarding the EENT system. Derm: Skin is intact, is healthy with good turgor, Skin is pink, warm \\T\\ dry. Musculoskeletal: No signs and/or symptoms reported regarding the musculoskeletal system. Vital Signs: 17:56 BP 156 / 98; Pulse 84; Resp 18; Temp 97.6; Pulse Ox 97% on R/A; Weight 79.38 kg (R); aj1 Height 5 ft. 10 in. (177.80 cm) (R); Pain 6/10; 17:56 Body Mass Index 25.11 (79.38 kg, 177.80 cm) aj1 ED Course: 17:44 Patient arrived in ED. rg4 17:55 Triage completed. aj1 17:56 Arm band placed on Patient placed in an exam room. aj1 18:41 Nate Ramires PA is PHCP. cp 18:41 Kevin Pickett MD is Attending Physician. cp 18:44 Patient has correct armband on for positive identification. Call light in reach. hb 19:20 Kira Cortez, RN is Primary Nurse. hb 19:26 No provider procedures requiring assistance completed. Patient did not have IV access hb during this emergency room visit. Administered Medications: No medications were administered Outcome: 18:54 Discharge ordered by . cp 19:26 Discharged to home ambulatory. hb 19:26 Condition: stable 19:26 Discharge instructions given to patient, Instructed on discharge instructions, follow up and referral plans. medication usage, Demonstrated understanding of instructions, follow-up care, medications, Prescriptions given X 1. 19:26 Patient left the ED. hb Signatures: Myranda Lyles RN RN aj1 Nate Ramires PA PA cp Baxter, Heather, RN RN Jennifer Gaffney 4
== END 2018-12-25 19:26 | disposition home or self-care (01) ==
LOC: ER 17:42
DX: Z76.0 Encounter for issue of repeat prescription (principal); F41.9 Anxiety disorder, unspecified; Z88.2 Allergy status to sulfonamides
CPT/HCPCS: 99282

== ENCOUNTER 2019-01-17 17:06 | Emergency (ER) | payer OTHER ==
--- OUTSIDE RECORDS SUMMARY | 2019-01-17 17:10 | XMS REPORT | Continuity of Care Document ---
:1995 Author Organization Interface Problems Problem Status Onset Classification Date Comments Source Date Reported Epigastric 09/22/2018 [facility] pain 8 Abdominal 09/22/2018 [facility] pain, acute, 8 epigastric ABD PAIN Active [facility] 8 [facility] PEDI GI- ABD Active [place] [facility] Personal 09/22/2018 [facility] history of nicotine dependence Nausea 09/22/2018 [facility] Medications Medication Details Route Status Patient Ordering Order Source Instructions Provider Date Famotidine 40 40 mg=1 tab, Active MG Oral Tablet PO, Daily, # 018 [place] [Pepcid] 30 tab, 0 Refill(s) GI cocktail 30 mL, Route: Inactive PO, Drug 018 [place] Form: SUSP, Dosing Weight 70.455, kg, ONCE, STAT, Start date: 03/05/18 12:42:00 CDT, Stop date: 03/05/18 12:42:00 CDTNotes: G.I. Cocktail - aluminum hydroxide/mag nesium hydroxide/lid ocaine/simeth icone Ondansetron 4 mg, 2 mL, Inactive Route: IVP, 018 [place] Drug form: INJ, ONCE, Dosing Weight 70.455, kg, Priority: STAT, Start date: 03/05/18 12:42:00 CDT, Stop date: 03/05/18 12:42:00 CDTNotes: (Same as: Zofrcharmaine) MEDICATION WASTE Product Size: 4 mg Product Wasted: ___ mg Morphine 4 mg, 1 mL, Inactive Route: IVP, 018 [place] Drug form: SOLN, ONCE, Dosing Weight 70.455, kg, Priority: STAT, Start date: 03/05/18 12:42:00 CDT, Stop date: 03/05/18 12:42:00 CDTNotes: (Same as:MORPhine Sulfate) Sodium 1,000 mL, Inactive MH Chloride 0.9% 1000 ml/hr, 018 [place] (Bolus) IV Infuse Over: 1 hr, Route: IV, 1,000, Drug form: INJ, ONCE, Priority: STAT, Dosing Weight 70.455 kg, Start date: 03/05/18 12:42:00 CDT, Stop date: 03/05/18 12:42:00 CDT Saline Flush 10 mL, Route: Inactive MH 0.9% IVP, Drug 018 [place] Form: INJ, Dosing Weight 70.455, kg, PRN, PRN Line Flush, Start date: 03/05/18 12:42:00 CDT, Duration: 30 day, Stop date: 04/04/18 12:41:00 CDTNotes: (Same as: BD Posiflush) Allergies, Adverse Reactions, Alerts Substance Category Reaction Severity Reaction Status Date Comments Source type Reported sulfa drugs Assertion Drug Active allergy [facility] Immunizations Immunization Date Given Site Status Last Updated Comments Source Results Order Name Results Value Reference Date Interpretation Comments Source Range URINE AND Occult Bld Negative Negative 03/05 STOOL Stl /2017 [place] (03/05/18 2:03 PM) CHEM PANEL Lipase Lvl 87 unit/L 73 - 393 03/05 [facility] CHEM PANEL Bili Total 0.6 mg/dL 0.2 - 1.3 03/05 [facility] CHEM PANEL Alk Phos 125 unit/L 39 - 136 03/05 [facility] CHEM PANEL eGFR 112 03/05 Result Comment: [...] is not recommended in the following populations: [facility] 3m2 Individuals with unstable creatinine concentrations, including [...] AST 29 unit/L 0 - 37 03/05 [facility] CHEM PANEL ALT 65 unit/L 0 - 65 03/05 [facility] CHEM PANEL BUN 12 mg/dL 7 - 22 03/05 [facility] CHEM PANEL Glucose Lvl 79 mg/dL 70 - 99 03/05 [facility] CHEM PANEL Potassium 4.1 meq/L 3.5 - 5.1 03/05 MH Lvl [facility] CHEM PANEL Sodium Lvl 141 meq/L 135 - 145 03/05 [facility] CHEM PANEL Creatinine 0.96 mg/dL 0.50 - 03/05 MH Lvl 1.40 [facility] CHEM PANEL Calcium Lvl 9.6 mg/dL 8.5 - 10.5 03/05 [facility] CHEM PANEL Chloride Lvl 104 meq/L 95 - 109 03/05 [facility] CHEM PANEL CO2 33 meq/L 24 - 32 03/05 [facility] CHEM PANEL Total 8.1 g/dL 6.4 - 8.4 03/05 [facility] CHEM PANEL Albumin Lvl 4.6 g/dL 3.5 - 5.0 03/05 [facility] CHEM PANEL AGAP 8.1 meq/L 10.0 - 03/05 MH 20. [facility] CHEM PANEL Globulin 3.5 g/dL 2.7 - 4.2 03/05 [facility] CHEM PANEL A/G Ratio 1.3 0.7 - 1.6 03/05 [facility] CHEM PANEL B/C Ratio 12 6 - 25 03/05 [facility] HEMATOLOGY MCH 31.3 pg 27.0 - 03/05 MH 31.0 [facility] HEMATOLOGY Hct 44.7 % 42.0 - 03/05 MH 54.0 [facility] HEMATOLOGY Hgb 15.6 g/dL 14.0 - 03/05 MH 18. [place] HEMATOLOGY WBC 6.6 K/CMM 3.7 - 10.4 03/05 [facility] HEMATOLOGY RDW 12.9 % 11.5 - 03/05 MH 14. [place] HEMATOLOGY MCHC 34.8 g/dL 32.0 - 03/05 MH 36.0 [facility] HEMATOLOGY MCV 89.8 fL 80.0 - 03/05 MH 94.0 [facility] HEMATOLOGY RBC 4.97 M/CMM 4.70 - 03/05 MH 6.10 [facility] HEMATOLOGY MPV 8.0 fL 7.4 - 10.4 03/05 [facility] HEMATOLOGY Platelet 311 K/CMM 133 - 450 03/05 [facility] HEMATOLOGY Basophils # 0.1 K/CMM 0.0 - 0.2 03/05 [facility] HEMATOLOGY Eosinophils 0.4 K/CMM 0.0 - 0.5 03/05 MH # [facility] HEMATOLOGY Monocytes # 0.5 K/CMM 0.0 - 0.8 03/05 [facility] HEMATOLOGY Neutrophils 3.4 K/CMM 1.5 - 8.1 03/05 [facility] HEMATOLOGY Lymphocytes 2.2 K/CMM 1.0 - 5.5 03/05 [facility] HEMATOLOGY Segs 51.6 % 45.0 - 03/05 MH 75.0 [facility] HEMATOLOGY Eosinophils 5.8 % 0.0 - 4.0 03/05 [facility] HEMATOLOGY Basophils 1.1 % 0.0 - 1.0 03/05 [facility] HEMATOLOGY Lymphocytes 33.2 % 20.0 - 03/05 MH 40.0 [facility] HEMATOLOGY Monocytes 8.3 % 2.0 - 12.0 03/05 [facility] URINE AND UA Sq Epi Occasional Few /LPF 03/05 STOOL /LPF [place] URINE AND UA WBC null 0 - 5 03/05 STOOL [place] URINE AND UA Nitrite Negative Negative 03/05 STOOL [place] (03/05/18 1:56 PM) URINE AND UA Leuk Est Negative Negative 03/05 STOOL [place] (03/05/18 1:56 PM) URINE AND UA 2.0 mg/dL 0.1 - 1.0 03/05 STOOL Urobilinogen [facility] URINE AND UA Mucus Many /LPF None Seen 03/05 STOOL /LPF [place] URINE AND UA RBC 7 /HPF 0 - 2 03/05 STOOL [place] URINE AND UA Bacteria Occasional None Seen 03/05 STOOL /HPF /HPF /2017 [place] URINE AND UA Spec Grav 1.017 <=1.030 03/05 [facility] URINE AND UA pH 6.0 5.0 - 8.0 03/05 STOOL [place] URINE AND UA Color Yellow Yellow 03/05 STOOL [place] *NA* (03/05/18 1:56 PM) URINE AND UA Turbidity Clear Clear 03/05 STOOL [place] (03/05/18 1:56 PM) URINE AND UA Protein Negative Negative 03/05 STOOL mg/dL mg/dL [facility] URINE AND UA Bili Negative Negative 03/05 STOOL [place] *NA* (03/05/18 1:56 PM) URINE AND UA Blood Negative Negative 03/05 STOOL [place] (03/05/18 1:56 PM) URINE AND UA Glucose Negative Negative 03/05 STOOL mg/dL mg/dL [facility] URINE AND UA Ketones Negative Negative 03/05 STOOL mg/dL mg/dL [facility] Abdomen RUQ Abdomen RUQ Clinical Indication: - Upper abdominal pain and right upper quadrant pain 03/05 - [facility] US US /2017 - [place] Comparison: Abdominal ultrasound October 07, 2009. Read [...] Date Comments Source Heart Rate 67 03/05/2018 [facility] Temperature Oral (F) 98.4 F 03/05/2018 [facility] Respitory Rate 18 03/05/2018 [facility] Systolic (mm Hg) 123 03/05/2018 [facility] Diastolic (mm Hg) 68 03/05/2018 [facility] Temperature Oral (F) 98.4 F 03/05/2018 [facility] Height 165.1 cm 03/05/2018 [facility] Weight 70.455 03/05/2018 [facility] BMI Calculated 25.85 03/05/2018 [facility] Respitory Rate 18 03/05/2018 [facility] Heart Rate 82 03/05/2018 [facility] Systolic (mm Hg) 128 03/05/2018 [facility] Diastolic (mm Hg) 79 03/05/2018 [facility] Encounters Location Location Encounter Encounter Reason Attending ADM DC Status Source Details Type Number For Provider Date Date Visit [facility] Outpatient [id number] TAL CALLAHAN 01/24 Active [facility] Medical GI- ABD BHARATI JR /2011 [facility] LACTO SE [facility] Emergency [id number] Gilberto 03/05 03/05 [facility] Rodríguez /2017 [facility] Outpatient [id number] Osvaldo 11/[address] [facility] [place] /2018 [facility] Procedures Procedure Code Date Perfomer Comments Source Otoplasty [id number] [facility]
--- OUTSIDE RECORDS SUMMARY | 2019-01-17 17:10 | XMS REPORT | CCD ---
:1995 Author Organization [facility] Care Team Providers Name Role Phone Mayur Medina Jr Referring Provider Allergies, Adverse Reactions, Alerts Substance Reaction Status NKDA Canceled sulfa drugs Active
[2019-01-17 17:48] LABS: Absolute Lymphocytes (CBC) 1.6 K/uL (0.7-4.9); Absolute Monocytes 0.6 K/uL (0.1-1.3); Absolute Neutrophil 5.7 K/uL (1.8-8.0); Basophils % 0.6 % (0-1.3); Eosinophils % 1.1 % (0-4.4); Hematocrit 44.7 % (39.6-49.0); Lymphocytes % 19.9 % (15.3-44.8); MPV 8.2 fL (7.6-11.3); Monocytes % 7.3 % (3.3-12.3); RBC Red Blood Cell Count 4.88 M/uL (4.33-5.43)
[2019-01-17 17:53] LABS: Protime INR 0.93
[2019-01-17] MEDS ORDERED: LIDOCAINE VISCOUS 2% SOLN 15 ML UDC ONE (17:53)
[2019-01-17 18:02] LABS: ALT/SGPT 36 U/L (12-78); AST/SGOT 16 U/L (15-37); Albumin 3.8 g/dL (3.4-5.0); Alkaline Phosphatase 88 U/L (45-117); BUN Blood Urea Nitrogen 7 mg/dL (7-18); Bicarbonate 24 mmol/L (21-32); Bilirubin Direct < 0.1 mg/dL (0-0.2); Bilirubin Total 0.4 mg/dL (0.2-1.0); Glucose Level 93 mg/dL (74-106); Potassium 3.7 mmol/L (3.5-5.1); Protein, Total 6.9 g/dL (6.4-8.2); Sodium Level 139 mmol/L (136-145)
[2019-01-17] MEDS ORDERED: ACT CHARCOAL/SORB 50 GM/240ML ONE (18:03)
[2019-01-17] MEDS ORDERED: NA CHLORIDE 0.9% 1,000 ML ONE (18:08)
[2019-01-17 20:43] LABS: Urine Blood NEGATIVE (NEG); Urine Glucose NEGATIVE (NEG); Urine Protein NEGATIVE (NEG); Urine Specific Gravity >1.030 (1.005-1.030); Urine pH 6.5 (5.0-7.0)
[2019-01-17 20:48] LABS: Barbiturates NEGATIVE (NEGATIVE); Benzodiazepines NEGATIVE (NEGATIVE); Cocaine POSITIVE (NEGATIVE); METHAMPHETAM NEGATIVE (NEGATIVE); Methadone NEGATIVE (NEGATIVE); Opiates NEGATIVE (NEGATIVE); Phencyclidine NEGATIVE (NEGATIVE); THC Cannibis POSITIVE (NEGATIVE)
--- NOTE | 2019-01-17 21:16 | EKG ---
Test Date: 2019-01-17 Test Time: 17:11:57 Director Of Real Estate: CHRISTINE MEASUREMENT RESULTS: Intervals: Rate: 71 [place]: 164 QRSD: 82 QT: 378 QTc: 410 [place]: P: 5 [place]: 164 QRS: 7 T: 43 INTERPRETIVE STATEMENTS: Normal sinus rhythm Normal ECG Compared to ECG 05/19/2015 15:53:24 No significant changes Electronically Signed On 01-17-19 21:14:58 CDT by Dimitri Harden
--- NOTE | 2019-01-17 22:53 | ER ---
Nurse's Notes [facility] Name: Cole Ball Age: 23 yrs Sex: Male : 1995 Arrival Date: 01/17/2019 Time: 17:14 Bed 8 Private MD: Diagnosis: Intentional overdose without clinical consequence Presentation: 01/17 17:14 Presenting complaint: Patient states: "I have been taking handfuls of propanolol since aa5 early this morning". Pt also reports intermittent left sided chest pain. EMS reports pt was ambulatory upon scene arrival c/o feeling lightheaded. EMS reports approximately 20 pills of propanolol 10 mg have been ingested by patient. Pt states "I just don't want to live because my girlfriend broke up with me and I can't get over her yet". Pt also reports he has not taken psych meds for 2 days, pt states "I have been really depressed so I that's why I haven't taken my meds". EMS reports they contacted poison control and recommended close monitoring and to consider possible need for glucagon administration. 17:14 Transition of care: patient was not received from another setting of care. Onset of aa5 symptoms was January 17, 2019. Risk Assessment: Do you want to hurt yourself or someone else? Patient reports desire/thoughts of hurting themselves or someone else. Provider notified. Initial Sepsis Screen: Does the patient meet any 2 criteria? No. Patient's initial sepsis screen is negative. Does the patient have a suspected source of infection? No. Patient's initial sepsis screen is negative. Care prior to arrival: Medication(s) given: Normal saline infusion, 400 cc NS IV initiated. 20 GA, in the left antecubital area. 17:14 Acuity: CHRIS 2 aa5 17:14 Method Of Arrival: EMS: [facility] aa5 17:14 Note [place] [employer] officer at bedside. PD reports pt is under custody. aa5 Historical: - Allergies: 17:15 Sulfa (Sulfonamide Antibiotics); aa5 - Home Meds: 17:15 Klonopin Oral [Active]; [place] Carbonate Oral [Active]; Zoloft Oral [Active]; aa5 - PMHx: 17:15 mitral valve prolapse; ulcerative colitis; Anxiety; Bipolar disorder; Depression; aa5 - Immunization history:: Adult Immunizations up to date. - Ebola Screening: : No symptoms or risks identified at this time. - Social history:: Smoking status: Patient/guardian denies using tobacco, Patient uses alcohol, on a daily basis. Patient/guardian denies using street drugs. Screenin:30 Abuse screen: Denies threats or abuse. Nutritional screening: No deficits noted. aa5 Tuberculosis screening: No symptoms or risk factors identified. Fall Risk None identified. Assessment: 17:14 Reassessment: Pt arrived to ED in police custody. ([employer]). ss 17:15 General: Appears uncomfortable, Behavior is cooperative, crying. Pain: Complains of aa5 pain in anterior aspect of left upper chest Pain does not radiate. Pain currently is 3 out of 10 on a pain scale. Quality of pain is described as squeezing, Is intermittent, lasting a few seconds. 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 Speech is normal, Facial symmetry appears normal, Pupils are PERRLA. Cardiovascular: Reports lightheadedness, Heart tones S1 S2 present Rhythm is sinus rhythm. Respiratory: Airway is patent Respiratory effort is even, unlabored, Respiratory pattern is regular, symmetrical, Breath sounds are clear bilaterally. GI: Abdomen is round non-distended, Bowel sounds present X 4 quads. Abd is soft and non tender X 4 quads. Reports nausea, Patient currently denies vomiting. : No signs and/or symptoms were reported regarding the genitourinary system. EENT: No signs and/or symptoms were reported regarding the EENT system. Derm: Skin is pink, warm \\T\\ dry. Musculoskeletal: Range of motion: intact in all extremities. 18:00 Reassessment: Patient is alert, oriented x 3, equal unlabored respirations, skin aa5 warm/dry/pink. Patient denies pain at this time. Cardiovascular: Rhythm is sinus rhythm. 18:55 Reassessment: Patient is alert, oriented x 3, equal unlabored respirations, skin ss warm/dry/pink. Patient to be observed x [address] Bernard. Patient and corporate law assistant at bedside updated on plan of care. Spoke with Mother and Grandmother in lobby and stated to them that because patient is in police custody for reasons unknown, per PD's policy the patient is not to have any visitors. Mother and Grandmother notified that patient is stable and alert at this time. Mother asked if she could have patient's phone, but police academy program coordinator stated that none of patient's belongings are to be released to anyone. Mother updated, seems upset, but verbalizes understanding. Mother directed to call [employer] for any question regarding patient's belongings or whereabouts after discharged from ED. 19:20 Reassessment: Patient appears in no apparent distress at this time. Patient and/or aa1 family updated on plan of care and expected duration. Pain level reassessed. Patient is alert, oriented x 3, equal unlabored respirations, skin warm/dry/pink. [employer] at bedside. Pt on 6 hr observation; will continue to monitor Patient denies pain at this time. 20:30 Reassessment: Patient appears in no apparent distress at this time. Patient and/or aa1 family updated on plan of care and expected duration. Pain level reassessed. Patient is alert, oriented x 3, equal unlabored respirations, skin warm/dry/pink. Pt to be under observation until 2300 per MD orders; will continue to monitor Patient denies pain at this time. 21:30 Reassessment: Patient appears in no apparent distress at this time. Patient and/or aa1 family updated on plan of care and expected duration. Pain level reassessed. Patient is alert, oriented x 3, equal unlabored respirations, skin warm/dry/pink. Will continue to monitor. 22:30 Reassessment: Patient appears in no apparent distress at this time. Patient and/or aa1 family updated on plan of care and expected duration. Pain level reassessed. Patient is alert, oriented x 3, equal unlabored respirations, skin warm/dry/pink. Awaiting completion of observation. 23:20 Reassessment: Patient appears in no apparent distress at this time. Patient is alert, aa1 oriented x 3, equal unlabored respirations, skin warm/dry/pink. Discussed d/c \\T\\ f/u instructions with pt; denies questions or concerns at this time Patient denies pain at this time. Vital Signs: 17:15 BP 150 / 103; Pulse 74; Resp 16 S; Temp 99.5(O); Pulse Ox 100% on R/A; Weight 79.38 kg aa5 (R); Height 5 ft. 10 in. (177.80 cm) (R); Pain 3/10; 17:45 BP 139 / 94; Pulse 69; Resp 18 S; Pulse Ox 98% on R/A; aa5 18:06 BP 139 / 94; Pulse 74; Resp 17; Pulse Ox 99% on R/A; jb1 19:22 BP 132 / 82; Pulse 67; Resp 16; Temp 97.8; Pulse Ox 95% on R/A; Pain 0/10; aa1 20:09 BP 138 / 85; Pulse 69; Resp 18; Pulse Ox 100% on R/A; Pain 0/10; aa1 21:00 BP 117 / 60; Pulse 64; Resp 16; Pulse Ox 99% on R/A; Pain 0/10; aa1 21:59 BP 126 / 80; Pulse 62; Resp 16; Temp 97.9; Pulse Ox 99% ; Pain 0/10; aa1 23:20 BP 123 / 89; Pulse 68; Resp 16; Temp 97.7; Pulse Ox 99% on R/A; Pain 0/10; aa1 17:15 Body Mass Index 25.11 (79.38 kg, 177.80 cm) aa5 ED Course: 17:14 Patient arrived in ED. aa5 17:14 Arm band placed on Patient placed in an exam room, on a stretcher. aa5 17:14 Patient has correct armband on for positive identification. Placed in gown. Bed in low aa5 position. Call light in reach. Side rails up X2. wwe wrestler on. Pulse ox on. NIBP on. 17:15 Jenelle Sweet, RN is Primary Nurse. aa5 17:15 Safety checks: Items removed: yes. Door open/sign placed on door: yes. Family/friend jb1 present: no. Sitter present: Yes. 17:18 Theron Bernard MD is Attending Physician. [facility] 17:21 Triage completed. aa5 17:30 Safety checks: Items removed: yes. Door open/sign placed on door: yes. Family/friend jb1 present: no. Sitter present: Yes. 17:45 Safety checks: Items removed: yes. Door open/sign placed on door: yes. Family/friend jb1 present: no. Sitter present: Yes. 17:48 Initial lab(s) drawn, by me, sent to lab. EKG done, by master technician. reviewed by Theron Bernard MD. 17:50 Assisted provider with Gastric Lavage. No pill fragments seen. 3000 mL in 3000 mL out. ss 18:00 Safety checks: Items removed: yes. Door open/sign placed on door: yes. Family/friend jb1 present: no. Sitter present: Yes. 18:00 No provider procedures requiring assistance completed. aa5 18:15 Safety checks: Items removed: yes. Door open/sign placed on door: yes. Family/friend jb1 present: no. Sitter present: Yes. 18:30 Safety checks: Items removed: yes. Door open/sign placed on door: yes. Family/friend jb1 present: no. Sitter present: Yes. 18:45 Safety Checks: The door is open or patient has been placed in a hallway bed/chair. aa5 Sitter present at this time. 19:00 Safety Checks: The door is open or patient has been placed in a hallway bed/chair. aa5 Sitter present at this time. 19:00 Report given to Maddi RN and Jennifer RN. aa 19:12 Attending Physician role handed off by Theron Bernard MD rn 19:12 Kevin Pickett MD is Attending Physician. rn 19:15 Safety checks: Items removed: yes. Door open/sign placed on door: yes. Family/friend ar5 present: no. Sitter present: Yes. 19:30 Safety checks: Items removed: yes. Door open/sign placed on door: yes. Family/friend ar5 present: no. Sitter present: Yes. 19:45 Safety checks: Items removed: yes. Door open/sign placed on door: yes. Family/friend ar5 present: no. Sitter present: Yes. 20:00 Safety checks: Items removed: yes. Door open/sign placed on door: yes. Family/friend ar5 present: no. Sitter present: Yes. 20:15 Safety checks: Items removed: yes. Door open/sign placed on door: yes. Family/friend ar5 present: no. Sitter present: Yes. 20:30 Safety checks: Items removed: yes. Door open/sign placed on door: yes. Family/friend ar5 present: no. Sitter present: Yes. 20:34 Urine Drug Screen Sent. lt1 20:45 Safety checks: Items removed: yes. Door open/sign placed on door: yes. Family/friend ar5 present: no. Sitter present: Yes. 21:00 Safety checks: Items removed: yes. Door open/sign placed on door: yes. Family/friend ar5 present: no. Sitter present: Yes. 21:15 Safety checks: Items removed: yes. Door open/sign placed on door: yes. Family/friend ar5 present: no. Sitter present: Yes. 21:30 Safety checks: Items removed: yes. Door open/sign placed on door: yes. Family/friend ar5 present: no. Sitter present: Yes. 21:45 Safety checks: Items removed: yes. Door open/sign placed on door: yes. Family/friend ar5 present: no. Sitter present: Yes. 22:00 Safety checks: Items removed: yes. Door open/sign placed on door: yes. Family/friend ar5 present: no. Sitter present: Yes. 22:15 Safety checks: Items removed: yes. Door open/sign placed on door: yes. Family/friend ar5 present: no. Sitter present: Yes. 22:30 Safety checks: Items removed: yes. Door open/sign placed on door: yes. Family/friend ar5 present: no. Sitter present: Yes. 22:45 Safety checks: Items removed: yes. Door open/sign placed on door: yes. Family/friend ar5 present: no. Sitter present: Yes. 23:20 IV discontinued, intact, bleeding controlled, No redness/swelling at site. Pressure aa1 dressing applied. Administered Medications: 18:00 Drug: NS 0.9% 1000 ml Route: IV; Rate: 1 bolus; Site: left antecubital; aa5 18:00 Drug: Charcoal Suspension 50 grams Route: PO; ss Point of Care Testing: Blood Glucose: 17:25 Blood Glucose: 84 mg/dL; aa5 Ranges: Intake: 18:08 PO: 3000ml (Water); Total: 3000ml. ss Output: 18:08 Gastric: 3000ml (Annika); Total: 3000ml. ss Outcome: 22:53 Discharge ordered by MD. burks 23:20 Discharged to Law Enforcement aa1 23:20 Condition: good 23:20 Discharge instructions given to police, Instructed on discharge instructions, follow up and referral plans. Demonstrated understanding of instructions. 23:22 Patient left the ED. tl2 Signatures: Daniel Henry jb1 Maddi Majano RN RN aa1 Kevin Pickett MD MD rn Calderon, Audri, RN RN aa5 Emilee Estrada RN RN ss Knox, Taylor, RN RN tl2 Theron Bernard MD MD ps1 Robles, Autumn nj5 Kera De Santiago [facility] Corrections: (The following items were deleted from the chart) 18:46 18:00 NS 0.9% 1000 ml IV at 1 bolus in right antecubital aa5 aa5 18:47 17:14 Presenting complaint: Patient states: "I have been taking handfuls of propanolol aa5 since early this morning". Pt also reports intermittent left sided chest pain. EMS reports pt was ambulatory upon scene arrival c/o feeling lightheaded. EMS reports approximately 20 pills of propanolol 10 mg have been ingested by patient. Pt states "I just don't want to live because my girlfriend broke up with me and I can't get over her yet". Pt also reports he has not taken psych meds for 2 days, pt states "I have been really depressed so I that's why I haven't taken my meds" aa5
--- NOTE | 2019-01-17 22:54 | EDPHYS ---
Physician Documentation [facility] Name: Cole Ball Age: 23 yrs Sex: Male : 1995 Arrival Date: 01/17/2019 Time: 17:14 Bed 8 Private MD: ED Physician Kevin Pickett HPI: 01/17 18:11 This 23 yrs old Male presents to ER via EMS with complaints of Overdose, ps1 Suicidal Ideation. 18:11 patient reportedly took a half bottle of unknown strength propranolol. 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 States that his SO left him and has moved on with another male and he has 2 kids with her. He could not handle the news. . Historical: - Allergies: 17:15 Sulfa (Sulfonamide Antibiotics); aa5 - Home Meds: 17:15 Klonopin Oral [Active]; [place] Carbonate Oral [Active]; Zoloft Oral [Active]; aa5 - PMHx: 17:15 mitral valve prolapse; ulcerative colitis; Anxiety; Bipolar disorder; Depression; aa5 - Immunization history:: Adult Immunizations up to date. - Ebola Screening: : No symptoms or risks identified at this time. - Social history:: Smoking status: Patient/guardian denies using tobacco, Patient uses alcohol, on a daily basis. Patient/guardian denies using street drugs. ROS: 18:11 Constitutional: Negative for fever, chills, and weight loss, Eyes: Negative for injury, ps1 pain, redness, and discharge, Cardiovascular: Negative for chest pain, palpitations, and edema, Respiratory: Negative for shortness of breath, cough, wheezing, and pleuritic chest pain, Abdomen/GI: Negative for abdominal pain, nausea, vomiting, diarrhea, and constipation, Skin: Negative for injury, rash, and discoloration, Neuro: Negative for headache, weakness, numbness, tingling, and seizure. 18:11 Psych: Positive for depression, suicide gesture, suicidal ideation. Exam: 18:11 Constitutional: This is a well developed, well nourished patient who is awake, alert, ps1 and in no acute distress. Head/Face: Normocephalic, atraumatic. Eyes: Pupils equal round and reactive to light, extra-ocular motions intact. Lids and lashes normal. Conjunctiva and sclera are non-icteric and not injected. ENT: Nares patent. No nasal discharge, no septal abnormalities noted. Tympanic membranes are normal and external auditory canals are clear. Oropharynx with no redness, swelling, or masses, exudates, or evidence of obstruction, uvula midline. Mucous membranes moist. Chest/axilla: Normal chest wall appearance and motion. Nontender with no deformity. No lesions are appreciated. Cardiovascular: Regular rate and rhythm. No gallops, murmurs, or rubs. Normal PMI, no JVD. No pulse deficits. Respiratory: Lungs have equal breath sounds bilaterally, clear to auscultation and percussion. No rales, rhonchi or wheezes noted. No increased work of breathing, no retractions or nasal flaring. Abdomen/GI: Soft, non-tender, with normal bowel sounds. No distension or tympany. No guarding or rebound. No evidence of tenderness throughout. MS/ Extremity: Pulses equal, no cyanosis. Neurovascular intact. Full, normal range of motion. Neuro: Awake and alert, GCS 15, oriented to person, place, time, and situation. Cranial nerves II-XII grossly intact. Sensory grossly intact. 18:11 Psych: Behavior/mood is depressed. Vital Signs: 17:15 BP 150 / 103; Pulse 74; Resp 16 S; Temp 99.5(O); Pulse Ox 100% on R/A; Weight 79.38 kg aa5 (R); Height 5 ft. 10 in. (177.80 cm) (R); Pain 3/10; 17:45 BP 139 / 94; Pulse 69; Resp 18 S; Pulse Ox 98% on R/A; aa5 18:06 BP 139 / 94; Pulse 74; Resp 17; Pulse Ox 99% on R/A; jb1 19:22 BP 132 / 82; Pulse 67; Resp 16; Temp 97.8; Pulse Ox 95% on R/A; Pain 0/10; aa1 20:09 BP 138 / 85; Pulse 69; Resp 18; Pulse Ox 100% on R/A; Pain 0/10; aa1 21:00 BP 117 / 60; Pulse 64; Resp 16; Pulse Ox 99% on R/A; Pain 0/10; aa1 21:59 BP 126 / 80; Pulse 62; Resp 16; Temp 97.9; Pulse Ox 99% ; Pain 0/10; aa1 23:20 BP 123 / 89; Pulse 68; Resp 16; Temp 97.7; Pulse Ox 99% on R/A; Pain 0/10; aa1 17:15 Body Mass Index 25.11 (79.38 kg, 177.80 cm) aa5 MDM: 18:02 Patient medically screened. ps1 18:11 Data reviewed: vital signs, nurses notes. ED course: Performed gastric lavage and no ps1 pills were in effluent. Pt tolerated procedure without complication. Charcoal given. . 22:51 Differential diagnosis: Ingestion/exposure to Propranolol. Counseling: I had a detailed rn discussion with the patient and/or guardian regarding: the historical points, exam findings, and any diagnostic results supporting the discharge/admit diagnosis, lab results, the need for outpatient follow up, to return to the emergency department if symptoms worsen or persist or if there are any questions or concerns that arise at home. Response to treatment: the patient's symptoms have resolved after treatment, the patient's condition has returned to base line, the patient is now symptom free, patient is well hydrated. and as a result, I will discharge patient. Special discussion: I discussed with the patient/guardian in detail that at this point there is no indication for admission to the hospital. It is understood, however, that if the symptoms persist or worsen the patient needs to return immediately for re-evaluation. ED course: Is being discharged in care of police, taking to [facility] long[facility]term, will be observed and under suicide/self-harm watch.. 01/17 17:19 Order name: Acetaminophen 01/17 17:19 Order name: CBC with Diff 01/17 17:19 Order name: ETOH Level 01/17 17:19 Order name: Hepatic Function 01/17 17:19 Order name: PT-INR ps1 01/17 17:19 Order name: Ptt, Activated; Complete Time: 17:57 ps1 01/17 17:19 Order name: Salicylate; Complete Time: 18:50 ps1 01/17 17:19 Order name: Urine Drug Screen; Complete Time: 22:15 ps1 01/17 17:19 Order name: CMP; Complete Time: 18:07 ps1 01/17 17:20 Order name: Acetaminophen Level; Complete Time: 18:07 EDMS 01/17 17:20 Order name: CBC with Automated Diff; Complete Time: 17:57 EDMS 12 17:20 Order name: Alcohol Serum/Plasma; Complete Time: 18:50 EDMS 12 17:20 Order name: Liver (Hepatic) Function; Complete Time: 18:07 EDMS 12 17:20 Order name: Protime (+INR); Complete Time: 17:57 EDMS 12 17:19 Order name: EKG; Complete Time: 17:20 ps1 12 17:19 Order name: EKG - Nurse/Tech; Complete Time: 17:25 ps1 12 17:19 Order name: IV Saline Lock; Complete Time: 17:25 ps1 12 17:19 Order name: Labs collected and sent; Complete Time: 17:25 ps1 12 17:19 Order name: Urine Dipstick-Ancillary (obtain specimen); Complete Time: 20:34 ps1 12 18:01 Order name: [place]; Complete Time: 22:15 ps1 12 20:27 Order name: Urine Dipstick--Ancillary (enter results); Complete Time: 22:15 mw2 EC:11 Rate is 71 beats/min. Rhythm is regular. QRS [place] is Normal. MD interval is normal. QRS ps1 interval is normal. QT interval is normal. No Q waves. T waves are Normal. No ST changes noted. Clinical impression: Normal ECG. Interpreted by me. Administered Medications: 18:00 Drug: NS 0.9% 1000 ml Route: IV; Rate: 1 bolus; Site: left antecubital; aa5 18:00 Drug: Charcoal Suspension 50 grams Route: PO; Point of Care Testing: Blood Glucose: 17:25 Blood Glucose: 84 mg/dL; aa5 Ranges: Critical Glucose Levels:Adult <50 mg/dl or >400 mg/dl <40 mg/dl or >180 mg/dl Disposition: 01/17/19 22:53 Discharged to Home. Impression: Intentional overdose without clinical consequence. - Condition is Stable. - Discharge Instructions: Nontoxic Ingestion, Drug Overdose. - Medication Reconciliation Form, Thank You Letter, Antibiotic Education, Prescription Opioid Use form. - Follow up: Private Physician; When: As needed; Reason: Recheck today's complaints, Re-evaluation by your physician. - Problem is new. - Symptoms have improved. Signatures: Dispatcher [employer] EDKevin Kumar MD MD rn Calderon, Audri, RN RN aa5 Emilee Estrada RN RN ss Jennifer Lewis RN RN tl2 Theron Bernard MD MD ps1 Corrections: (The following items were deleted from the chart) 23:22 22:53 01/17/2019 22:53 Discharged to Home. Impression: Intentional overdose without tl2 clinical consequence. Condition is Stable. Discharge Instructions: Drug Overdose. Forms are Medication Reconciliation Form, Thank You Letter, Antibiotic Education, Prescription Opioid Use. Follow up: Private Physician; When: As needed; Reason: Recheck today's complaints, Re-evaluation by your physician. Problem is new. Symptoms have improved. rn
== END 2019-01-17 23:22 | disposition home or self-care (01) ==
LOC: ER 17:06
DX: T50.992A Poisoning by other drugs, medicaments and biological substances, intentional self-harm, initial encounter (principal); F32.9 Major depressive disorder, single episode, unspecified; F41.9 Anxiety disorder, unspecified; F31.9 Bipolar disorder, unspecified; Z88.2 Allergy status to sulfonamides
CPT/HCPCS: 36415; 80053; 80076; 80178; 80307; 80320; 80329; 81003; 82962; 85025; 85610; 85730; 93005; 99284; J7030

== ENCOUNTER 2019-05-12 16:46 | Emergency (ER) | payer OTHER ==
--- NOTE | 2019-05-12 17:37 | ER ---
Nurse's Notes [facility] Name: Cole Ball Age: 23 yrs Sex: Male : 1995 Arrival Date: 05/12/2019 Time: 16:49 Bed 18 Private MD: Diagnosis: Anxiety disorder, unspecified Presentation: 05/12 17:07 Presenting complaint: Patient states: "I just got out of residential and my doctor stopped aj1 seeing me. I was on Klonopin and [place] and Zoloft and I tried to go back to him and he said that he couldn't see me no more. Now I'm waiting to hear back from a doctor in [place], but I haven't heard back from him. Since I got out of residential my anxiety is really bad, and I was hoping yall could help me out. I've also been having all these weird symptoms like I'm light headed, and sometimes I feel like I'm going to pass out". Transition of care: patient was not received from another setting of care. Onset of symptoms was May 12, 2019. Risk Assessment: Do you want to hurt yourself or someone else? Patient reports no desire to harm self or others. Initial Sepsis Screen: Does the patient meet any 2 criteria? No. Patient's initial sepsis screen is negative. Does the patient have a suspected source of infection? No. Patient's initial sepsis screen is negative. Care prior to arrival: None. 17:07 Method Of Arrival: Ambulatory aj1 17:07 Acuity: CHRIS 4 aj1 Triage Assessment: 17:11 General: Appears in no apparent distress. comfortable, Behavior is calm, cooperative, aj1 appropriate for age. Pain: Complains of pain in right anabaptist and left anabaptist Pain currently is 2 out of 10 on a pain scale. Neuro: Cardiovascular: Patient's skin is warm and dry. Respiratory: Airway is patent Respiratory effort is even, unlabored, Respiratory pattern is regular, symmetrical. Historical: - Allergies: 17:11 Sulfa (Sulfonamide Antibiotics); aj1 - Home Meds: 17:11 [place] Carbonate Oral [Active]; Zoloft Oral [Active]; aj1 - PMHx: 17:11 Anxiety; Bipolar disorder; Depression; mitral valve prolapse; ulcerative colitis; aj1 - Immunization history:: Flu vaccine is up to date. - Social history:: Smoking status: Patient/guardian denies using tobacco. - Ebola Screening: : Patient denies travel to an Ebola-affected area in the 21 days before illness onset. Screenin:59 Abuse screen: Denies threats or abuse. Nutritional screening: No deficits noted. em Tuberculosis screening: No symptoms or risk factors identified. Fall Risk None identified. Assessment: 17:45 General: Appears in no apparent distress. comfortable, Behavior is calm, cooperative. em Pain: Denies pain. Neuro: Level of Consciousness is awake, alert, obeys commands, Oriented to person, place, time, situation, Appropriate for age. Cardiovascular: Capillary refill < 3 seconds Patient's skin is warm and dry. Respiratory: Airway is patent Respiratory effort is even, unlabored, Respiratory pattern is regular, symmetrical. Derm: Skin is intact, is healthy with good turgor, Skin is pink, warm \\T\\ dry. Musculoskeletal: Capillary refill < 3 seconds, Range of motion: intact in all extremities. 17:45 Reassessment: I agree with assessment completed by Hilton Duarte LVN . aa5 Vital Signs: 17:11 BP 146 / 82; Pulse 85; Resp 18; Temp 97.1; Pulse Ox 99% on R/A; Weight 83.91 kg (R); aj1 Height 5 ft. 10 in. (177.80 cm) (R); Pain 2/10; 17:11 Body Mass Index 26.54 (83.91 kg, 177.80 cm) aj1 ED Course: 16:49 Patient arrived in ED. as 17:10 Triage completed. aj1 17:11 Arm band placed on Patient placed in an exam room. [facility] 17:17 Stanislaw Ahumada PA is PHCP. [facility] 17:17 Kevin Pickett MD is Attending Physician. [facility] 17:52 Hilton Duarte LVN is Primary Nurse. em 17:59 Patient has correct armband on for positive identification. Placed in gown. Bed in low em position. Call light in reach. 17:59 No provider procedures requiring assistance completed. Patient did not have IV access em during this emergency room visit. Administered Medications: No medications were administered Outcome: 17:36 Discharge ordered by MD. [facility] 18:00 Discharged to home ambulatory, with family. em 18:00 Condition: good 18:00 Discharge instructions given to patient, Instructed on discharge instructions, follow up and referral plans. medication usage, Demonstrated understanding of instructions, follow-up care, medications, Prescriptions given X 1. 18:01 Patient left the ED. em Signatures: Myranda Lyles, RN RN aj1 Stanislaw Ahumada PA PA jmm Munoz, Edgar, LICENSED MORTGAGE LOAN OFFICER LICENSED MORTGAGE LOAN OFFICER em Khushbu Mcgowan Audri, RN RN aa5
--- NOTE | 2019-05-12 17:37 | EDPHYS ---
Physician Documentation [facility] Name: Cole Ball Age: 23 yrs Sex: Male : 1995 Arrival Date: 05/12/2019 Time: 16:49 Bed 18 Private MD: ED Physician Kevin Pickett HPI: 05/12 17:32 This 23 yrs old Male presents to ER via Ambulatory with complaints of jmm Medication Refill. 17:32 The patient presents to the emergency department requesting refill(s) for: klonopin. jmm The patient has experienced similar episodes in the past. This is a 23 year old male with a history of bipolar disorder, depession, that presents to the ED requesting medication refil for klonopin. Patient also takes lithium and zoloft. Patient was incarcerated for 4 months but states his anxiety is worsening. Patient is in the process with establishing himself with another psychiatrist. . Historical: - Allergies: 17:11 Sulfa (Sulfonamide Antibiotics); aj1 - Home Meds: 17:11 [place] Carbonate Oral [Active]; Zoloft Oral [Active]; aj1 - PMHx: 17:11 Anxiety; Bipolar disorder; Depression; mitral valve prolapse; ulcerative colitis; aj1 - Immunization history:: Flu vaccine is up to date. - Social history:: Smoking status: Patient/guardian denies using tobacco. - Ebola Screening: : Patient denies travel to an Ebola-affected area in the 21 days before illness onset. ROS: 17:32 Constitutional: Negative for fever, chills, and weight loss, Cardiovascular: Negative jmm for chest pain, palpitations, and edema, Respiratory: Negative for shortness of breath, cough, wheezing, and pleuritic chest pain. 17:32 Psych: Positive for anxiety. 17:32 All other systems are negative. Exam: 17:32 Constitutional: This is a well developed, well nourished patient who is awake, alert, jmm and in no acute distress. Head/Face: atraumatic. Eyes: EOMI, no conjunctival erythema appreciated ENT: Moist Mucus Membranes Neck: Trachea midline, Supple Chest/axilla: Normal chest wall appearance and motion. Cardiovascular: Regular rate and rhythm. No edema appreciated Respiratory: Normal respirations, no respiratory distress appreciated Abdomen/GI: Non distended, soft Back: Normal ROM Skin: General appearance color normal MS/ Extremity: Moves all extremities, no obvious deformities appreciated, no edema noted to the lower extremities Neuro: Awake and alert, normal gait Psych: Behavior is normal, Mood is normal, Patient is cooperative and pleasant 17:32 Psych: Behavior/mood is anxious. Vital Signs: 17:11 BP 146 / 82; Pulse 85; Resp 18; Temp 97.1; Pulse Ox 99% on R/A; Weight 83.91 kg (R); aj1 Height 5 ft. 10 in. (177.80 cm) (R); Pain 2/10; 17:11 Body Mass Index 26.54 (83.91 kg, 177.80 cm) aj1 MDM: 17:26 Patient medically screened. [facility] 17:35 Data reviewed: vital signs, nurses notes. Counseling: I had a detailed discussion with jazmyn the patient and/or guardian regarding: the historical points, exam findings, and any diagnostic results supporting the discharge/admit diagnosis, the need for outpatient follow up, to return to the emergency department if symptoms worsen or persist or if there are any questions or concerns that arise at home. ED course: I discussed with the patient the need for establishing himself with family practice for reevaluation. Patient prescribed a small refill and advised to establish himself next week. patient understood and agrees with the plan of care. . Administered Medications: No medications were administered Disposition: 18:02 Co-signature as Attending Physician, Kevin Pickett MD. rn Disposition: 05/12/19 17:36 Discharged to Home. Impression: Anxiety disorder, unspecified. - Condition is Stable. - Discharge Instructions: Panic Attacks. - Prescriptions for Klonopin 1 mg Oral Tablet - take 1 tablet by ORAL route every 12 hours As needed; 12 tablet. - Medication Reconciliation Form, Thank You Letter, Antibiotic Education, Prescription Opioid Use form. - Follow up: Private Physician; When: 2 - 3 days; Reason: Recheck today's complaints, Continuance of care, Re-evaluation by your physician. Signatures: Myranda Lyles, RN RN aj1 Stanislaw Ahumada PA PA jmm Munoz, Edgar, PHOTONICS TECHNICIAN PHOTONICS TECHNICIAN em Kevin Pickett MD MD district attorney: (The following items were deleted from the chart) 18:01 17:36 05/12/2019 17:36 Discharged to Home. Impression: Anxiety disorder, unspecified. em Condition is Stable. Forms are Medication Reconciliation Form, Thank You Letter, Antibiotic Education, Prescription Opioid Use. Follow up: Private Physician; When: 2 - 3 days; Reason: Recheck today's complaints, Continuance of care, Re-evaluation by your physician. jazmyn
[2019-05-12 18:08] VITALS: BP 146/82; TEMP 97.1; O2SAT 99
== END 2019-05-12 18:01 | disposition home or self-care (01) ==
LOC: ER 16:46
DX: F41.9 Anxiety disorder, unspecified (principal); Z76.0 Encounter for issue of repeat prescription; Z88.2 Allergy status to sulfonamides
CPT/HCPCS: 99282

== ENCOUNTER 2019-08-23 10:36 | Emergency (ER) | payer OTHER ==
--- OUTSIDE RECORDS SUMMARY | 2019-08-23 10:39 | XMS REPORT ---
:1995 [facility] Address [address] [place] [address] Dr. Lechuga [address] [place] [id number] Care Team Providers Name Role Phone Unavailable Unavailable Unavailable Payers Payer Name Policy Type Policy Number Effective Date Expiration Date Problems This patient has no known problems. Allergies, Adverse Reactions, Alerts Allergy Allergy Status Severity Reaction(s) Onset Inactive Treating Comments Name Type Date Date Clinician No Known DA Active U 2019-05 Allergies -15 00:00:0 0 Medications This patient has no known medications.
[2019-08-23] MEDS ORDERED: ACETAMINOPHEN 500 MG TAB ONE (11:14)
[2019-08-23] MEDS ORDERED: IBUPROFEN 400 MG TAB ONE (11:14)
--- NOTE | 2019-08-23 11:43 | ER ---
Nurse's Notes [facility] Name: Cole Ball Age: 24 yrs Sex: Male : 1995 Arrival Date: 08/23/2019 Time: 10:38 Bed 16 [facility] MD: Diagnosis: Influenza due to certain identified influenza viruses Presentation: 08/23 10:56 Presenting complaint: Patient states: Sore throat and painful cough x 2 weeks. ss Transition of care: patient was not received from another setting of care. Onset of symptoms was August 08, 2019. Risk Assessment: Do you want to hurt yourself or someone else? Patient reports no desire to harm self or others. Initial Sepsis Screen: Does the patient meet any 2 criteria? No. Patient's initial sepsis screen is negative. Does the patient have a suspected source of infection? No. Patient's initial sepsis screen is negative. Care prior to arrival: None. 10:56 Method Of Arrival: Ambulatory ss 10:56 Acuity: CHRIS 4 ss Historical: - Allergies: 11:04 Sulfa (Sulfonamide Antibiotics); ss - Home Meds: 11:04 Zoloft Oral [Active]; Clonazepam Oral [Active]; ss - PMHx: 11:04 Anxiety; Bipolar disorder; Depression; mitral valve prolapse; ulcerative colitis; ss - PSHx: 11:04 None; ss - Immunization history:: Adult Immunizations up to date. - Social history:: Smoking status: Patient/guardian denies using tobacco. - Ebola Screening: : Patient denies exposure to infectious person Patient denies travel to an Ebola-affected area in the 21 days before illness onset. Screenin:16 Abuse screen: Denies threats or abuse. Denies injuries from another. Nutritional ca1 screening: No deficits noted. Tuberculosis screening: No symptoms or risk factors identified. Fall Risk None identified. Assessment: 11:16 General: Appears in no apparent distress. comfortable, Behavior is calm, cooperative, ca1 appropriate for age, Reports chills for >3 days. Pain: Complains of pain in throat Pain currently is 8 out of 10 on a pain scale. Pain began. Neuro: Level of Consciousness is awake, alert, obeys commands, Oriented to person, place, time, situation, Appropriate for age. Cardiovascular: Heart tones S1 S2 present Capillary refill < 3 seconds Patient's skin is warm and dry. Respiratory: Reports cough that is since 2 weeks ago Airway is patent Respiratory effort is even, unlabored, Respiratory pattern is regular, symmetrical, Breath sounds are clear bilaterally. GI: Abdomen is flat, non-distended, Bowel sounds present X 4 quads. Abd is soft and non tender X 4 quads. : No signs and/or symptoms were reported regarding the genitourinary system. EENT: Throat is pink with gag reflex present. Derm: Skin is intact, is healthy with good turgor, Skin is pink, warm \T\ dry. Musculoskeletal: Circulation, motion, and sensation intact. Capillary refill < 3 seconds, Range of motion: intact in all extremities. 11:47 Reassessment: Patient appears in no apparent distress at this time. Patient is alert, ca1 oriented x 3, equal unlabored respirations, skin warm/dry/pink. Vital Signs: 10:56 Resp 16; Weight 81.65 kg; Height 5 ft. 10 in. (177.80 cm); Pain 8/10; ss 10:57 BP 138 / 87; Temp 98.1(O); Pulse Ox 99% on R/A; dh3 11:40 BP 136 / 82; Pulse 86; Resp 16 S; Pulse Ox 100% on R/A; ph 10:56 Body Mass Index 25.83 (81.65 kg, 177.80 cm) ss ED Course: 10:38 Patient arrived in ED. as 10:40 Adam Bacon FNP-C [facility] la1 10:40 Kevin Pickett MD is Attending Physician. la1 10:56 Huma Mariscal RN is Primary Nurse. ca1 10:58 Triage completed. ss 11:04 Arm band placed on right wrist. ss 11:14 Flu Sent. ca1 11:14 Strep Sent. ca1 11:16 Patient has correct armband on for positive identification. Bed in low position. Call ca1 light in reach. Side rails up X 1. Pulse ox on. NIBP on. 11:16 No provider procedures requiring assistance completed. Patient did not have IV access ca1 during this emergency room visit. Administered Medications: 11:14 Drug: Ibuprofen 800 mg Route: PO; ca1 11:48 Follow up: Response: No adverse reaction; Pain is decreased ca1 11:14 Drug: Tylenol 1000 mg Route: PO; ca1 11:48 Follow up: Response: No adverse reaction; Pain is decreased ca1 Outcome: 11:42 Discharge ordered by MD. stock 11:48 Discharged to home ca1 11:48 Condition: stable 11:48 Discharge instructions given to patient, Instructed on discharge instructions, follow up and referral plans. Demonstrated understanding of instructions, follow-up care. 11:49 Patient left the ED. ca1 Signatures: Khushbu Mcgowan [place], RN RN Adam Bacon, PIPELAYING FITTER-C PIPELAYING FITTER-Omid1 Tram Baker RN RN Marlene Verdin [facility] Huma Mariscal RN RN ca1
--- NOTE | 2019-08-23 11:43 | EDPHYS ---
Physician Documentation [facility] Name: Cole Ball Age: 24 yrs Sex: Male : 1995 Arrival Date: 08/23/2019 Time: 10:38 Bed 16 Private MD: ED Physician Kevin Pickett HPI: 08/23 11:03 This 24 yrs old Male presents to ER via Ambulatory with complaints of Sore la1 Throat, Cough. 11:03 The patient presents with sore throat. The patient describes throat pain as dry, la1 scratchy. Onset: The symptoms/episode began/occurred 2 week(s) ago. Severity of symptoms: At their worst the symptoms were moderate. Modifying factors: The symptoms are alleviated by nothing, the symptoms are aggravated by nothing, Patient's oral intake status: good Denies contact with similarly ill indivduals. Associated signs and symptoms: Pertinent positives: chills, cough. The patient has not experienced similar symptoms in the past. Historical: - Allergies: 11:04 Sulfa (Sulfonamide Antibiotics); ss - Home Meds: 11:04 Zoloft Oral [Active]; Clonazepam Oral [Active]; ss - PMHx: 11:04 Anxiety; Bipolar disorder; Depression; mitral valve prolapse; ulcerative colitis; ss - PSHx: 11:04 None; ss - Immunization history:: Adult Immunizations up to date. - Social history:: Smoking status: Patient/guardian denies using tobacco. - Ebola Screening: : Patient denies exposure to infectious person Patient denies travel to an Ebola-affected area in the 21 days before illness onset. ROS: 11:03 Eyes: Negative for injury, pain, redness, and discharge, ENT: Negative for injury, la1 pain, and discharge, Neck: Negative for injury, pain, and swelling, Cardiovascular: Negative for chest pain, palpitations, and edema. 11:03 ENT: + sore throat Abdomen/GI: Negative for abdominal pain, nausea, vomiting, diarrhea, and constipation, Back: Negative for injury and pain, : Negative for injury, bleeding, discharge, and swelling, MS/Extremity: Negative for injury and deformity, Neuro: Negative for headache, weakness, numbness, tingling, and seizure. 11:03 Constitutional: Positive for chills, malaise. 11:03 Respiratory: Positive for cough. Exam: 11:04 Constitutional: This is a well developed, well nourished patient who is awake, alert, la1 and in no acute distress. Head/Face: Normocephalic, atraumatic. Eyes: Pupils equal round and reactive to light, extra-ocular motions intact. Lids and lashes normal. Conjunctiva and sclera are non-icteric and not injected. ENT: Nares patent. No nasal discharge, no septal abnormalities noted. Tympanic membranes are normal and external auditory canals are clear. Oropharynx with no redness, swelling, or masses, exudates, or evidence of obstruction, uvula midline. Mucous membranes moist. Neck: Trachea midline, no cervical lymphadenopathy. Supple, full range of motion without nuchal rigidity, or vertebral point tenderness. No Meningismus. Chest/axilla: Normal chest wall appearance and motion. Nontender with no deformity. No lesions are appreciated. Cardiovascular: Regular rate and rhythm with a normal S1 and S2. No gallops, murmurs, or rubs. Normal PMI, no JVD. No pulse deficits. Respiratory: Lungs have equal breath sounds bilaterally, clear to auscultation No rales, rhonchi or wheezes noted. No increased work of breathing, no retractions or nasal flaring. Abdomen/GI: Soft, non-tender, with normal bowel sounds. No guarding or rebound. No evidence of tenderness throughout. Back: No spinal tenderness. No costovertebral tenderness. Full range of motion. Neuro: Awake and alert, GCS 15, oriented to person, place, time, and situation. Normal gait. Vital Signs: 10:56 Resp 16; Weight 81.65 kg; Height 5 ft. 10 in. (177.80 cm); Pain 8/10; ss 10:57 BP 138 / 87; Temp 98.1(O); Pulse Ox 99% on R/A; dh3 11:40 BP 136 / 82; Pulse 86; Resp 16 S; Pulse Ox 100% on R/A; ph 10:56 Body Mass Index 25.83 (81.65 kg, 177.80 cm) ss MDM: 10:52 Patient medically screened. la1 11:41 Data reviewed: vital signs, nurses notes, lab test result(s), and as a result, I will la1 discharge patient. Data interpreted: Pulse oximetry: on room air is 100 %. Interpretation: normal. Counseling: I had a detailed discussion with the patient and/or guardian regarding: the historical points, exam findings, and any diagnostic results supporting the discharge/admit diagnosis, lab results, the need for outpatient follow up, a family practitioner, to return to the emergency department if symptoms worsen or persist or if there are any questions or concerns that arise at home. Special discussion: I discussed with the patient/guardian that the patient's current presentation does not indicate dosing of antibiotics. They should follow-up with their primary care provider and return if the symptoms persist or progress. 08/23 11:02 Order name: Strep la1 08/23 11:02 Order name: Flu la1 08/23 11:38 Order name: Throat Culture EDMS Administered Medications: 11:14 Drug: Ibuprofen 800 mg Route: PO; ca1 11:48 Follow up: Response: No adverse reaction; Pain is decreased ca1 11:14 Drug: Tylenol 1000 mg Route: PO; ca1 11:48 Follow up: Response: No adverse reaction; Pain is decreased ca1 Disposition: 18:28 Co-signature as Attending Physician, Kevin Pickett MD. rn Disposition: 08/23/19 11:42 Discharged to Home. Impression: Influenza due to certain identified influenza viruses. - Condition is Stable. - Discharge Instructions: Influenza, Adult, Influenza, Adult, Uvis-wi-Bhcg, Cough, Adult. - Medication Reconciliation Form, Thank You Letter form. - Follow up: Private Physician; When: 2 - 3 days; Reason: Recheck today's complaints, Re-evaluation by your physician. Follow up: Emergency Department; When: As needed; Reason: Trouble breathing, Worsening of condition. Signatures: Dispatcher [employer] EDKevin Kumar MD MD rn Smirch, Shelby, RN RN ss Adam Bacon, QUALITY LAB TECHNICIAN-C QUALITY LAB TECHNICIAN-Cla1 Huma Mariscal RN RN ca1 Corrections: (The following items were deleted from the chart) 11:49 11:42 08/23/2019 11:42 Discharged to Home. Impression: Influenza due to certain ca1 identified influenza viruses. Condition is Stable. Forms are Medication Reconciliation Form, Thank You Letter, Antibiotic Education, Prescription Opioid Use. Follow up: Private Physician; When: 2 - 3 days; Reason: Recheck today's complaints, Re-evaluation by your physician. Follow up: Emergency Department; When: As needed; Reason: Trouble breathing, Worsening of condition. la1
[2019-08-23 11:54] VITALS: TEMP 98.1
[2019-08-23 11:56] VITALS: BP 136/82; O2SAT 100
== END 2019-08-23 11:49 | disposition home or self-care (01) ==
LOC: ER 10:36
DX: J10.89 Influenza due to other identified influenza virus with other manifestations (principal); Z88.2 Allergy status to sulfonamides; F41.8 Other specified anxiety disorders
CPT/HCPCS: 87070; 87081; 87804; 99283

== ENCOUNTER 2020-03-12 14:25 | Emergency (ER) | payer OTHER ==
--- OUTSIDE RECORDS SUMMARY | 2020-03-12 14:28 | XMS REPORT | Continuity of Care Document ---
:1995 Author Organization [facility] [employer] [place] Care Team Providers Name Role Phone [facility] SourceLair Unavailable Un available Problems Problem Status Onset Classification Date Comments Sourc e Date Reported Epigastric 09/22/2018 [place] and pain 8 ABD PAIN Active [facility] 8 [facility] PEDI [facility]- [place]BD [place] [facility] Personal 09/22/[place] history of nicotine dependence Nausea 09/22/2018 [place] Medications Medication Details Route Status Patient Ordering Order Source Instructions Provider Date Famotidine 40 40 mg = 1 Active MG Oral Tablet tab, PO, 018 Napavine [Pepcid] Daily, # 30 tab, 0 Refill(s) GI cocktail Notes: G.I. Inactive Cocktail - 018 Napav[place] aluminum hydroxide/mag nesium hydroxide/lid ocaine/simeth icone Ondansetron Notes: (Same Inactive as: Zofran) 018 Napavine MEDICATION WASTE Product Size: 4 mg Product Wasted: ___ mg Morphine Notes: (Same Inactive as:MORPhine 018 Napavine Sulfate) Sodium 1,000 mL, Inactive Chloride 0.9% 1000 ml/hr, 018 [place] (Bolus) IV Infuse Over: 1 hr, Route: IV, 1,000, Drug form: INJ, ONCE, Priority: STAT, Dosing Weight 70.455 kg, Start date: 03/05/18 12:42:00 CDT, Stop date: 03/05/18 12:42:00 CDT Saline Flush Notes: (Same Inactive 0.9% as: BD 018 Napavine Posiflush) Allergies, Adverse Reactions, Alerts Substance Category Reaction Severity Reaction Status Date Comments S ource type Reported sulfa drugs Assertion Drug Active allergy Napavine Immunizations No Data Provided for This Section Results Order Name Results Value Reference Date Interpretation Comments Nuha rce Range URINE AND Occult Bld Negative Negative 03/05 STOOL Stl (03/05/18 2:03 PM) [facility] nd CHEM PANEL Lipase Lvl 87 73 - 393 03/05 Napavine CHEM PANEL Bili Total 0.6 0.2 - 1.3 03/05 Napavine CHEM PANEL Alk Phos 125 39 - 136 03/05 Napavine CHEM PANEL eGFR 112 03/05 Result Comment: The Napavine eGFR is calculated using the CKD-EPI formula. In most young, healthy individuals the eGFR will be >90 mL/min/1.73m2 . The eGFR declines with age. An eGFR of 60-89 may be normal in some populations, particularly the elderly, for whom the CKD-EPI formula has not been extensively validated. Use of the eGFR is not recommended in the following populations:< br/>
Lois viduals with unstable creatinine concentration s, including patients and those with serious co-morbid conditions.<b r/>
Patie nts with extremes in muscle mass or diet.

The data above are obtained from the National Kidney Disease Education Program (NKDEP) which additionally recommends that when the eGFR is used in patients with extremes of body mass index for purposes of drug dosing, the eGFR should be multiplied by the estimated BMI. CHEM PANEL AST 29 0 - 37 03/05 Napavine CHEM PANEL ALT 65 0 - 65 03/05 Napavine CHEM PANEL BUN 12 7 - 22 03/05 Nap[facility]ine CHEM PANEL Glucose Lvl 79 70 - 99 03/05 [facility]ine CHEM PANEL Potassium 4.1 3.5 - 5.1 03/05 MH Lvl Napavine CHEM PANEL Sodium Lvl 141 135 - 145 03/05 Napav[place] CHEM PANEL Creatinine 0.96 0.50 - 03/05 MH Lvl 1.40 Napavine CHEM PANEL Calcium Lvl 9.6 8.5 - 10.5 03/05 Napavine CHEM PANEL Chloride Lvl 104 95 - 109 03/05 [facility] CHEM PANEL CO2 33 24 - 32 03/05 Napavine CHEM PANEL Total 8.1 6.4 - 8.4 03/05 Napavine CHEM PANEL Albumin Lvl 4.6 3.5 - 5.0 03/05 [facility] CHEM PANEL AGAP 8.1 10.0 - 03/05 MH 20.0 Napavine CHEM PANEL Globulin 3.5 2.7 - 4.2 03/05 Napavine CHEM PANEL A/G Ratio 1.3 0.7 - 1.6 03/05 Napavine CHEM PANEL B/C Ratio 12 6 - 25 03/05 Napavine HEMATOLOGY MCH 31.3 27.0 - 03/05 MH 31.0 [facility] HEMATOLOGY Hct 44.7 42.0 - 03/05 MH 54.0 [facility] HEMATOLOGY Hgb 15.6 14.0 - 03/05 MH 18.0 [facility] HEMATOLOGY WBC 6.6 3.7 - 10.4 03/05 [facility] HEMATOLOGY RDW 12.9 11.5 - 03/05 MH 14.5 [facility] HEMATOLOGY MCHC 34.8 32.0 - 03/05 MH 36.0 [facility] HEMATOLOGY MCV 89.8 80.0 - 03/05 MH 94.0 [facility] HEMATOLOGY RBC 4.97 4.70 - 03/05 MH 6.10 [facility] HEMATOLOGY MPV 8.0 7.4 - 10.4 03/05 [facility] HEMATOLOGY Platelet 311 133 - 450 03/05 [place] HEMATOLOGY Basophils # 0.1 0.0 - 0.2 03/05 [facility] HEMATOLOGY Eosinophils 0.4 0.0 - 0.5 03/05 MH # /2017 Napavine HEMATOLOGY Monocytes # 0.5 0.0 - 0.8 03/05 [facility] HEMATOLOGY Neutrophils 3.4 1.5 - 8.1 03/05 MH # /2017 [facility] HEMATOLOGY Lymphocytes 2.2 1.0 - 5.5 03/05 MH # /2017 [facility] HEMATOLOGY Segs 51.6 45.0 - 03/05 MH 75.0 [facility] HEMATOLOGY Eosinophils 5.8 0.0 - 4.0 03/05 [facility] HEMATOLOGY Basophils 1.1 0.0 - 1.0 03/05 [facility] HEMATOLOGY Lymphocytes 33.2 20.0 - 03/05 MH 40.0 [facility] HEMATOLOGY Monocytes 8.3 2.0 - 12.0 03/05 Napavine URINE AND UA Sq Epi Occasional Few /LPF 03/05 STOOL /LPF /2017 [place]av[place] URINE AND UA WBC <1 0 - 5 03/05 STOOL [place]ine URINE AND UA Nitrite Negative Negative 03/05 STOOL (03/05/18 1:56 PM) [place] URINE AND UA Leuk Est Negative Negative 03/05 STOOL (03/05/18 1:56 PM) [place] URINE AND UA 2.0 0.1 - 1.0 03/05 STOOL Urobilinogen /2017 [facility] URINE AND UA Mucus Many /LPF None Seen 03/05 STOOL /LPF /2017 [facility] URINE AND UA RBC 7 0 - 2 03/05 STOOL [place] URINE AND UA Bacteria Occasional None Seen 03/05 STOOL /HPF /HPF /2017 [facility]av[place] URINE AND UA Spec Grav 1.017 <=1.030 03/05 STOOL [facility] URINE AND UA pH 6.0 5.0 - 8.0 03/05 STOOL [place] URINE AND UA Color Yellow Yellow 03/05 STOOL *NA* /2017 Napavine (03/05/18 1:56 PM) URINE AND UA Turbidity Clear Clear 03/05 STOOL (03/05/18 1:56 PM) [place] URINE AND UA Protein Negative Negative 03/05 STOOL mg/dL mg/dL [facility]avine URINE AND UA Bili Negative Negative 03/05 STOOL *NA* /2017 Napavine (03/05/18 1:56 PM) URINE AND UA Blood Negative Negative 03/05 STOOL (03/05/18 1:56 PM) [place] URINE AND UA Glucose Negative Negative 03/05 STOOL mg/dL mg/dL [facility] URINE AND UA Ketones Negative Negative 03/05 STOOL mg/dL mg/dL Napavine Pathology Reports No Data Provided for This Section Diagnostic Reports Report Value Date Source Abdomen RUQ US Clinical Indication: - Uppe r abdominal pain and right upper quadrant pain 03/05/2018 [facility] Comparison: Abdominal ultrasound October 07, 2009. TECHNIQUE: Grayscale and limited color sonographic evaluation of the right upper quadrant of the abdomen and gallbladder region was performed with standard technique. FINDINGS: LIVER: The liver is uniform in echo genicity. The liver continues to be mildly enlarged, extending past the lower pole of the adjacent right kidney. No focal lesions or biliary duct dilatation. BILE DUCTS: The intrahepatic bile ducts are not appreciably dilated. The common bile duct measures 1 mm. The distal common bile duct is not well seen. GALLBLADDER: There are no stones, wall thickening or perichol ecystic fluid. PANCREAS: Limited visualization due to overlying bowel gas . KIDNEY: The right kidney measures 9.4 cm. There is normal renal contou r and morphology, with normal parenchymal echotexture. There is no hydronephrosis. AORTA AND INFERIOR VENA CAVA: Visualized portions appear unremarkable. ASCITES: There is no right upper quadrant abdominal ascit es. IMPRESSION: The hepatic silhouette continues to be mildly en larged. SL: [id number] Consultation Notes No Data Provided for This Section Discharge Summaries No Data Provided for This Section History and Physicals No Data Provided for This Section Vital Signs Vital Sign Value Date Comments Source Heart Rate 67 03/05/2018 [facility] Temperature Oral (F) 98.4 F 03/05/2018 [facility] Respitory Rate 18 03/05/2018 [facility] Systolic (mm Hg) 123 03/05/2018 [facility] Diastolic (mm Hg) 68 [facility] Oral (F) 98.4 F 03/05/2018 [facility] Height 165.1 cm 03/05/2018 [facility] Weight 70.455 03/05/2018 [facility] BMI Calculated 25.85 03/05/2018 [facility] Respitory Rate 18 03/05/2018 [facility] Heart Rate 82 03/05/2018 [facility] Systolic (mm Hg) 128 03/05/2018 [facility] Diastolic (mm Hg) 79 03/05/2018 [place] Encounters Location Location Encounter Encounter Reason Attending ADM DC Stat us Source Details Type Number For Provider Date Date Visit [facility] Outpatient [id number] TAL CALLAHAN 01/24 Acti ve [facility] GI- ABD BHARATI [facility] PAIN Center LACTO SE [facility] Emergency [id number] Gilberto 03/05 03/05 Adarsh Rodríguez /2017 [facility] Outpatient [id number] Osvaldo 11/13 [facility] Procedures Procedure Code Date Perfomer Comments Source Otoplasty [id number] ASHLYN Mendoza Assessment and Plan No Data Provided for This Section Plan of Care No Data Provided for This Section Social History Social History Date Source Social History TypeResponse 03/05/2018 ASHLYN Mendoza Alcohol Current, Type Beer. Frequency: 1-2 times per week. Smoking Status Former smoker; Exposure to Tobacco Smoke None; Cigarette Smoking Last 365 Days No; Reg Smoking Cessation Counseling No entered on: 03/05/18 Family History No Data Provided for This Section Advance Directives No Data Provided for This Section Functional Status No Data Provided for This Section
--- OUTSIDE RECORDS SUMMARY | 2020-03-12 14:29 | XMS REPORT | Continuity of Care Document ---
:1995 Author Organization [facility] t Address [address] [place] [address] Care Team Providers Name Role Phone James Rodríguez Attending Clinician Payers Payer Name Policy Type Policy Number Effective Date Expiration Date S ource Problems Condition Condition Condition Status Onset Resolution Last Treating Co mments Source Name Details Category Date Date Treatment Clinician Date ABD PAIN Diagnosis Active 2018-10-12 M emoria - 13:59:00 l ABD PAIN 00:00: Mehran n 00 Active 03/05/2018 [facility] PEDI GI- Diagnosis Active 2012-01-25 M emoria ABD PAIN 01-04 09:19:00 l LACTOSE* PEDI GI- 00:00: He rmann * ABD PAIN 00 LACTOSE* * Active 01/05/2012 [facility] Personal Problem 2018-09-22 Mem oria history of 12:40:11 l nicotine Personal Herm juan antonio dependence history of nicotine dependence [facility] 2018-09-22 Mem[facility] ia 12:40:11 l Nausea [facility] 09/22/2018 [place] Epigastric Problem 2017-2018-09-22 2018-09-22 Memoria pain 8-03 12:40:11 12:40:11 l 03:20: [facility] Epigastric 39 pain 03/10/2018 09/22/2018 [facility] Allergies, Adverse Reactions, Alerts Allergy Allergy Status Severity Reaction(s) Onset Inactive Treating Comm ents Source Name Type Date Date Clinician No Known DA Active U 2018-08 [facility] Allergie 0-15 [place] 00:00: d 00 [facility] sulfa sulfa Active [facility] drugs drugs [facility] [place] Social History Social Habit Start Date Stop Date Quantity Comments Source Social History 2018-03-05 2018-03-05 Kwabena Garza tita 18:46:46 18:46:46 Medications Ordered Filled Start Stop Current Ordering Indication Dosage Frequency Signature Comments Components Source Medication Medication Date Date Medication? Clinician (SIG) Name Name Famotidine Yes 40 mg = 1 Me moria 40 MG Oral 03-05 tab, PO, l Tablet 20:06: Daily, # [facility] [Pepcid] 00 30 tab, 0 Refill(s) GI cocktail No Notes: Sanford michael 03-05 G.I. l 17:42: Cocktail - [facility] 00 aluminum hydroxide/ magnesium hydroxide/ lidocaine/ simethicon e Ondansetron No Notes: Sanford michael 03-05 (Same as: l 17:42: Zofran) [facility]arsh 00 MEDICATION WASTE Product Size: 4 mg Product Wasted: ___ mg Morphine No Notes: Memoria 03-05 (Same l 17:42: as:MORPhin [facility] 00 e Sulfate) Sodium No 1,000 mL, Memori a Chloride 03-05 1000 l 0.9% 17:42: ml/hr, [facility] (Bolus) IV 00 Infuse Over: 1 hr, Route: IV, 1,000, Drug form: INJ, ONCE, Priority: STAT, Dosing Weight 70.455 kg, Start date: 03/05/18 12:42:00 CDT, Stop date: 03/05/18 12:42:00 CDT Saline No Notes: [facility] Flush 0.9% 03-05 (Same as: l 17:42: BD [facility] 00 Posiflush) Vital Signs Vital Name Observation Time Observation Value Comments Source Heart Rate 2018-03-05 20:32:00 Kwabena Altamirano Temperature Oral (F) 2018-03-05 20:32:00 98.4 F wKabena Altamirano Respitory Rate 2018-03-05 20:32:00 Memori al [facility] Systolic (mm Hg) 2018-03-05 20:32:00 Sanford rial [facility] Diastolic (mm Hg) 2018-03-05 20:32:00 Mem orial [facility] Temperature Oral (F) 2018-03-05 17:40:00 98.4 F [facility] Height 2018-03-05 17:40:00 165.1 cm [facility] [place] Weight 2018-03-05 17:40:00 [facility] [place] BMI Calculated 2018-03-05 17:40:00 [facility] [place] Respitory Rate 2018-03-05 17:40:00 Memori al [facility] Heart Rate 2018-03-05 17:40:00 [facility] [place] Systolic (mm Hg) 2018-03-05 17:40:00 [facility]ford rial [place] Diastolic (mm Hg) 2018-03-05 17:40:00 Mem [facility]rial [facility] Procedures Procedure Date / Time Performed Performing Clinician Sourc e Otoplasty [facility] Encounters Start End Encounter Admission Attending Care Care Encounter Source Date/Time Date/Time Type Type Clinicians Facility Department ID 2018-03-05 2018-03-05 Outpatient Marcos [facility] [id number] 12:26:00 15:36:00 Gilberto Stubbs 2018-03-05 2018-03-05 Outpatient Marcos [facility] [id number] 12:26:00 15:36:00 Gilberto Stubbs Results Test Description Test Time Test Comments Results Result Sourc e Comments URINE AND STOOL 2018-03-05 Negative [facility] 19:03:00 (03/05/18 2:03 [facility] PM) CHEM PANEL 2018-03-05 87 [facility] 18:56:00 [facility] CHEM PANEL 2018-03-05 0.6 [facility] 18:56:00 [place] CHEM PANEL 2018-03-05 125 [facility] 18:56:00 [facility] CHEM PANEL 2018-03-05 112 [facility] 18:56:00 [facility] CHEM PANEL 2018-03-05 29 [facility] 18:56:00 [facility] CHEM PANEL 2018-03-05 65 [facility] 18:56:00 [facility] CHEM PANEL 2018-03-05 12 [facility] 18:56:00 [place] CHEM PANEL 2018-03-05 79 [facility] 18:56:00 [facility] CHEM PANEL 2018-03-05 4.1 [facility] 18:56:00 [place] CHEM PANEL 2018-03-05 141 [facility] 18:56:00 [facility] CHEM PANEL 2018-03-05 0.96 [facility] 18:56:00 [place] CHEM PANEL 2018-03-05 9.6 [facility] 18:56:00 [facility] CHEM PANEL 2018-03-05 104 [facility] 18:56:00 [place] CHEM PANEL 2018-03-05 33 [facility] 18:56:00 [place] CHEM PANEL 2018-03-05 8.1 [facility] 18:56:00 [place] CHEM PANEL 2018-03-05 4.6 [facility] 18:56:00 [place] CHEM PANEL 2018-03-05 8.1 [facility] 18:56:00 [facility] CHEM PANEL 2018-03-05 3.5 [facility] 18:56:00 [facility] CHEM PANEL 2018-03-05 18:56:00 Test Item Value Reference Range Interpretation Comme nts A/G Ratio (test code = A/G Ratio) 1.3 1 0.7-1.6 [facility] HermannCHEM [id number] 18:56:00 Test Item Value Reference Range Interpretation Comments B/C Ratio (test code = B/C Ratio) 12 1 6-25 [facility] [id number] 18:56:00 Test Item Value Reference Range Interpretation Comments MCH (test code = MCH) 31.3 pg 27.0-31.0 [facility] [id number] 18:56:0044.7[facility]annHEMATOLOGY 2018-03-05 18:56:0015.6[facility] [id number] 18:56:006.6[facility] [id number] 18:56:0012.9[facility] [id number] 18:56:0034.8[facility] [id number] 18:56:0089.8[facility] [id number] 18:56:004.97[facility] [id number] 18:56:00 8.0[facility] [id number] 18:56:06156Lkwcxapv HermannHEMATOLOGY 2018-03-05 18:56:000.1[facility] [id number] 18:56:000.4[facility] BxiohhyMJJMJRMQVC5872-41-53 18:56:000.5[facility] [id number] 18:56:003.4[facility] [id number] 18:56:002.2[facility] [place] [id number] 18:56:0051.6[facility] [id number] 18:56:00 5.8[facility] [id number] 18:56:001.1[facility] HermannHEMATOLOGY 2018-03-05 18:56:0033.2[facility] [id number] 18:56:008.3[facility] HermannURINE AND [id number] 18:56:00<1[facility]ann[facility]INE AND STOOL 2018-03-05 18:56:00Negative (03/05/18 1:56 PM)[facility] AND STOOL 2018-03-05 18:56:00Negative (03/05/18 1:56 PM)[facility] AND STOOL 2018-03-05 18:56:002.0[facility]annUR[facility] AND [id number] 18:56:007 [facility] AND [id number] 18:56:00 Test Item Value Reference Range Interpretation Comments UA Spec Grav (test code = UA Spec 1.017 1 Grav) [facility] [id number] 18:56:00 Test Item Value Reference Range Interpretation Comments UA pH (test code = UA pH) 6.0 1 5.0-8.0 [facility] [id number] 18:56:00Yellow *NA*(03/05/18 1:56 PM) [facility] [id number] 18:56:00Clear (03/05/18 1:56 PM) [facility] [id number] 18:56:00Negative *NA*(03/05/18 1:56 PM) [facility] [id number] 18:56:00Negative (03/05/18 1:56 PM) [facility]
--- NOTE | 2020-03-12 17:42 | ER ---
Nurse's Notes [facility] Name: Cole Ball Age: 24 yrs Sex: Male : 1995 Arrival Date: 03/12/2020 Time: 14:33 Bed Waiting Private MD: Diagnosis: Presentation: 03/12 15:15 Chief complaint: Patient states: L sided abdominal pain x 1 week. Bloody stool x 4 ca1 days, dark red in color, started light and got dark. Reports nausea, vomiting and diarrhea. Reports SOB with the pain. Coronavirus screen: Client denies travel out of the [place] in the last 14 days. At this time, the client does not indicate any symptoms associated with coronavirus-19. Ebola Screen: Patient negative for fever greater than or equal to 101.5 degrees Fahrenheit, and additional compatible Ebola Virus Disease symptoms Patient denies exposure to infectious person. Patient denies travel to an Ebola-affected area in the 21 days before illness onset. No symptoms or risks identified at this time. Initial Sepsis Screen: Does the patient meet any 2 criteria? No. Patient's initial sepsis screen is negative. Does the patient have a suspected source of infection? No. Patient's initial sepsis screen is negative. Risk Assessment: Do you want to hurt yourself or someone else? Patient reports no desire to harm self or others. Onset of symptoms was March 12, 2020. 15:15 Method Of Arrival: Ambulatory ca1 15:15 Acuity: CHRIS 3 ca1 Historical: - Allergies: 15:20 Sulfa (Sulfonamide Antibiotics); ca1 - PMHx: 15:20 Anxiety; Bipolar disorder; Depression; mitral valve prolapse; ulcerative colitis; ca1 - PSHx: 15:20 None; ca1 - Immunization history:: Adult Immunizations up to date. - Social history:: Smoking status: Patient reports the use of cigarette tobacco products, smokes one-half pack cigarettes per day, Patient uses alcohol, on a daily basis. [address] drugs, marijuana. Assessment: 16:35 Reassessment: Called from lobby. No answer. ca1 17:40 Reassessment: Called from the lobby. No answer. ca1 Vital Signs: 15:15 BP 131 / 91; Pulse 82; Resp 15 S; Temp 97.2(TE); Pulse Ox 100% on R/A; Weight 68.04 kg ca1 (R); Height 5 ft. 10 in. (177.80 cm) (R); 15:15 Body Mass Index 21.52 (68.04 kg, 177.80 cm) ca1 ED Course: 14:33 Patient arrived in ED. fj1 15:18 Triage completed. ca1 15:20 Arm band placed on right wrist. ca1 16:30 Nate Ramires PA is PHCP. cp 16:30 Enmanuel Mcgill MD is Attending Physician. cp Administered Medications: No medications were administered Outcome: 17:41 Patient left the ED. ca1 Signatures: Nate Ramires PA PA cp Huma Mariscal RN RN ca1 Jose Francisco Andrews fj1
[2020-03-12 18:00] VITALS: BP 131/91; TEMP 97.2; O2SAT 100
== END 2020-03-12 17:41 | disposition left against medical advice (07) ==
LOC: ER 14:25
DX: Z02.9 Encounter for administrative examinations, unspecified (principal)
CPT/HCPCS: 99281

== ENCOUNTER 2022-03-04 13:13 | Emergency (ER) | payer OTHER ==
[2022-03-04 13:52] LABS: Absolute Lymphocytes (CBC) 1.9 K/uL (0.7-4.9); Lymphocytes % 32.4 % (15.3-44.8); MPV 7.4 fL (7.6-11.3); RBC Red Blood Cell Count 4.49 M/uL (4.33-5.43)
[2022-03-04 14:34] LABS: ALT/SGPT 31 U/L (12-78); AST/SGOT 20 U/L (15-37); Albumin 4.4 g/dL (3.4-5.0); Alkaline Phosphatase 93 U/L (45-117); BUN Blood Urea Nitrogen 18 mg/dL (7-18); Bicarbonate 28 mmol/L (21-32); Bilirubin Direct 0.2 mg/dL (0-0.2); Bilirubin Total 0.7 mg/dL (0.2-1.0); Glomerular Filtration Rate 103 ml/min (=/>90); Glucose Level 87 mg/dL (74-106); Potassium 3.3 mmol/L (3.5-5.1); Protein, Total 7.3 g/dL (6.4-8.2); Sodium Level 140 mmol/L (136-145)
[2022-03-04 14:48] LABS: Protime INR 0.97
--- NOTE | 2022-03-04 14:48 | RAD REPORT ---
EXAM DESCRIPTION: CT - Head Brain Wo Cont - 03/04/2022 2:36 pm CLINICAL HISTORY: Hallucinations COMPARISON: HEAD BRAIN W O CONTRAST dated 09/15/2009 TECHNIQUE: Axial 5 mm thick images of the head were obtained without IV contrast. All CT scans are performed using dose optimization technique as appropriate and may include automated exposure control or mA/KV adjustment according to patient size. FINDINGS: No intracranial hemorrhage, mass, edema or shift of mid-line structures. No acute infarcti on changes seen. No abnormal extra-axial fluid collections. Ventricles are normal. Mastoid air cells and visualized portions of the paranasal sinuses are clear. No acute bony findings. No change from the 2009 study. IMPRESSION: Negative non-contrast CT head examination.
[2022-03-04] MEDS ORDERED: POTASSIUM 25 MEQ EFFERV TAB ONE (15:00)
[2022-03-04 16:31] LABS: Urine Blood Negative (Negative); Urine Glucose Negative (Negative); Urine Protein Negative (Negative); Urine pH 7.5 (5.0-7.0)
[2022-03-04 17:01] LABS: SARS-CoV-2 Antigen Rapid Res Negative (Negative)
[2022-03-04 17:08] LABS: Barbiturates NEGATIVE (NEGATIVE); Benzodiazepines NEGATIVE (NEGATIVE); Cocaine NEGATIVE (NEGATIVE); METHAMPHETAM POSITIVE (NEGATIVE); Methadone NEGATIVE (NEGATIVE); Opiates NEGATIVE (NEGATIVE); Phencyclidine NEGATIVE (NEGATIVE); THC Cannibis POSITIVE (NEGATIVE)
--- NOTE | 2022-03-04 17:12 | ER ---
Nurse's Notes [facility] Name: Cole Ball Age: 26 yrs Sex: Male : 1995 Arrival Date: 03/04/2022 Time: 13:16 Bed 3 Private MD: Diagnosis: Suicidal ideations;Hallucinations, unspecified;Cannabis abuse;Other stimulant abuse-Methamphetamine abuse Presentation: 03/04 13:17 Chief complaint: EMS states: PD called for a pshych evaluation. states he is tw2 schizophrenic and is hearing voices and seeing things. states the voice in his head are telling him to kill himself. vs 150's/100's hr 115. Coronavirus screen: At this time, the client does not indicate any symptoms associated with coronavirus-19. Ebola Screen: Patient denies travel to an Ebola-affected area in the 21 days before illness onset. Initial Sepsis Screen: Does the patient meet any 2 criteria? No. Patient's initial sepsis screen is negative. Does the patient have a suspected source of infection? No. Patient's initial sepsis screen is negative. Risk Assessment: Do you want to hurt yourself or someone else? Patient reports no desire to harm self or others. Onset of symptoms was March 04, 2022. 13:17 Method Of Arrival: EMS: [facility] tw2 13:17 Acuity: CHRIS 2 tw2 Triage Assessment: 13:17 General: Appears in no apparent distress. Behavior is calm, cooperative, crying. tw2 14:43 Pain: Denies pain. ap3 Historical: - Allergies: 13:19 Sulfa (Sulfonamide Antibiotics); tw2 - PMHx: 13:19 Anxiety; Bipolar disorder; Depression; mitral valve prolapse; ulcerative colitis; tw2 Schizophrenia; - Immunization history:: Adult Immunizations. - Social history:: Smoking status: . Screenin:39 Abuse screen:. ap3 14:42 Abuse screen: Denies injuries from another. Nutritional screening: No deficits noted. ap3 Tuberculosis screening: No symptoms or risk factors identified. Fall Risk No fall in past 12 months (0 pts). No secondary diagnosis (0 pts). IV access (20 points). Ambulatory Aid- None/Bed Rest/Nurse Assist (0 pts). Gait- Normal/Bed Rest/Wheelchair (0 pts) Total Vivar Fall Scale indicates No Risk (0-24 pts). Assessment: 13:20 Reassessment: sitter at bedside and will remain at bedside throughout shift. tw2 14:46 General: Behavior is flat, talking and laughing with auditory hallucinations . Neuro:. ap3 Cardiovascular: Patient's skin is warm and dry. Respiratory: Airway is patent Respiratory effort is even, unlabored, Respiratory pattern is regular, symmetrical. 18:25 Reassessment: report given to ELIZA Romo at [facility]. ap3 19:15 Reassessment: Pt is resting in bed peacefully with no s/s of pain or distress noted. jb4 Respirations are even and unlabored. Psych: 14:39 [place] Suicide Severity Screening: In the past month, have you wished you were ap3 or wished you could go to sleep and not wake up? Patient responds "yes." voices are telling him to kill himself and harm others "In the past month, have you actually had any thoughts of killing yourself?" Patient responds "yes." "In your lifetime, have you ever done anything, started to do anything, or prepared to do anything to end your life?" Patient responds "no.". Subjective: Hallucinations are auditory, visual, Having thoughts of suicide. Objective: Patient is using poor eye contact, Speech is rambling, soft, speaking to and laughing with the voices he hears in his head Affect is flat. Interventions: Removed personal items and placed in bag. Patient placed in hospital gown. Searched person for dangerous items. Belonging list filled out. Safety Checks: as best as possible, patient is currently in a trauma room. awaiting different room availability. pt states he has had "addiction problems" in the past, but denies recent drug use. Commitment: Patient will be an involuntary commitment. Commitment papers completed. Vital Signs: 13:17 BP 142 / 107; Pulse 75; Resp 18; Temp 98.6(TE); Pulse Ox 97% on R/A; Weight 56.7 kg tw2 (R); Height 5 ft. 8 in. (172.72 cm); 20:26 BP 126 / 90; Pulse 72; Resp 16; Pulse Ox 100% on R/A; Pain 0/10; kl 13:17 Body Mass Index 19.01 (56.70 kg, 172.72 cm) tw2 ED Course: 13:16 Patient arrived in ED. em1 13:16 Tina Lozada, ELIZA is Primary Nurse. tw2 13:19 Triage completed. tw2 13:20 Arm band placed on. tw2 13:22 Jun Loomis CARBONIZER TESTER is PHCP. pm1 13:22 Nate Crane MD is Attending Physician. pm1 13:30 Patient has correct armband on for positive identification. Patient is placed in psych ap3 hold. One-on-one care X 15 minutes. 13:41 Inserted saline lock: 20 gauge in right antecubital area, using aseptic technique. tw2 ,using aseptic technique. by Tech Blood collected. 14:38 CT Head Brain wo Cont In Process Unspecified. EDMS 16:30 Urine Drug Screen Sent. tw2 16:38 SARS RAPID Sent. tw2 17:28 Clinical information faxed to [facility] and [facility]. em1 18:[address] [facility] called to do nurse to nurse report. em1 20:01 administrative approval given by Yocasta Rodriguez/ patient has been accepted to [address]/ Dr. Welsh accepted the patient in transfer. The bed won't be available till the morning. 20:07 faxed patient clinicals to all available psych facilities. mw2 20:17 nurse to nurse from [facility]. mw2 20:26 No apparent distress. Resting quietly. transfer approval from receiving facility. Safety Checks: Personal items have been removed. The door is open or patient has been placed in a hallway bed/chair. There are no family/friend visitors at this time. 20:31 Connected Jun Loomis CARBONIZER TESTER with the Doctor from [facility]. mw2 20:40 administrative approval given by Yeyo Deluna/patient has been accepted to [address]/ Dr. Fung accepted the patient in transfer. 21:00 No apparent distress. Resting quietly. Appears to be sleeping. 21:24 [facility] ETA 1 hour - 1 hour 30 minutes. 2 22:00 No apparent distress. Resting quietly. Appears to be sleeping. Administered Medications: 14:59 Drug: Potassium Effervescent Tablet 50 mEq Route: PO; tw2 16:21 Follow up: Response: No adverse reaction ap3 Medication: 15:37 VIS not applicable for this client. tw2 Output: 16:25 Urine: 600ml (Voided); Total: 600ml. ap3 Outcome: 17:11 ER care complete, transfer ordered by . pm1 03/05 00:33 Patient left the ED. kl Signatures: Dispatcher [employer] EDMS Dorene Rodriguez RN Ovidio Hayden em1 Jun Loomis, CARBONIZER TESTER CARBONIZER TESTER pm1 Tina Lozada RN RN tw2 Darryl Lopez RN RN jb4 Courtney Rodrigues RN RN ap3 Carole Spivey 2
--- NOTE | 2022-03-04 17:12 | EDPHYS ---
Physician Documentation [facility] Name: Cole Ball Age: 26 yrs Sex: Male : 1995 Arrival Date: 03/04/2022 Time: 13:16 Bed 3 Private MD: ED Physician Nate Crane HPI: 03/04 13:38 This 26 yrs old Male presents to ER via EMS with complaints of Suicidal Ideation, pm1 Auditory and Visual Hallucinations. 13:38 The patient presents to the emergency department with psychosis, has experienced pm1 auditory hallucinations, voices are telling patient to commit sucide, has experienced visual hallucinations, occasionally seeing dots, suicide ideation, and the patient has a plan, to jump from a height. Onset: The symptoms/episode began/occurred Ongoing for a few months but feels like he cannot handle it anymore. Past psychiatric history: Prior diagnosis: schizophrenia, Psychiatric medications include: none, Primary psychiatric physician: the patient does not have a primary psychiatric physician, Reports prior inpatient treatment, but he is unable to recall when and where. He remembers Haldol being used and he got extrapyramidal symptoms with it. Associated signs and symptoms: Pertinent positives; hallucinations, suicide ideation, Pertinent negatives: headache, homicidal ideation, head injury. Severity of symptoms: in the emergency department the symptoms are worse Pain is currently a 0 / 10. The patient has not recently seen a physician. Historical: - Allergies: 13:19 Sulfa (Sulfonamide Antibiotics); tw2 - PMHx: 13:19 Anxiety; Bipolar disorder; Depression; mitral valve prolapse; ulcerative colitis; tw2 Schizophrenia; - Immunization history:: Adult Immunizations. - Social history:: Smoking status: . ROS: 13:38 Constitutional: Negative for fever, chills, and weight loss. pm1 13:38 Eyes: Negative for injury, pain, redness, and discharge, Cardiovascular: Negative for chest pain, palpitations, and edema, Respiratory: Negative for shortness of breath, cough, wheezing, and pleuritic chest pain, Abdomen/GI: Negative for abdominal pain, nausea, vomiting, diarrhea, and constipation, MS/Extremity: Negative for injury and deformity, Skin: Negative for injury, rash, and discoloration, Neuro: Negative for headache, weakness, numbness, tingling, and seizure. 13:38 Psych: Positive for auditory hallucinations, visual hallucinations, suicidal ideation, Negative for homicidal ideation. 13:38 All other systems are negative. Exam: 13:38 Constitutional: This is a well developed, well nourished patient who is awake, alert, pm1 and in no acute distress. Head/Face: Normocephalic, atraumatic. 13:38 Back: No spinal tenderness. No costovertebral tenderness. Full range of motion. Skin: Warm, dry with normal turgor. Normal color with no rashes, no lesions, and no evidence of cellulitis. MS/ Extremity: Pulses equal, no cyanosis. Neurovascular intact. Full, normal range of motion. 13:38 Eyes: Exam is negative for acute changes, Periorbital structures: appear normal, Pupils: no acute changes, Extraocular movements: no acute changes, Conjunctiva: no acute changes, no injection. 13:38 ENT: Mouth: no acute changes, Lips: normal, moist, Oral mucosa: normal, pink and intact, moist. 13:38 Neck: Exam negative for acute changes, ROM/movement: is normal, is supple, no acute changes, pain, is not appreciated. 13:38 Cardiovascular: Exam negative for acute changes, Rate: normal, Rhythm: regular, Pulses: no pulse deficits are appreciated, Heart sounds: normal, normal S1and S2. 13:38 Respiratory: Exam negative for acute changes, respiratory distress, shortness of breath, Breath sounds: are clear throughout. 13:38 Neuro: Exam negative for acute changes, Orientation: is normal, Mentation: is normal, Motor: is normal, moves all fours. Vital Signs: 13:17 BP 142 / 107; Pulse 75; Resp 18; Temp 98.6(TE); Pulse Ox 97% on R/A; Weight 56.7 kg tw2 (R); Height 5 ft. 8 in. (172.72 cm); 20:26 BP 126 / 90; Pulse 72; Resp 16; Pulse Ox 100% on R/A; Pain 0/10; kl 13:17 Body Mass Index 19.01 (56.70 kg, 172.72 cm) tw2 MDM: 13:22 Patient medically screened. [facility] 17:10 Data reviewed: vital signs. Data interpreted: Pulse oximetry: on room air is 97 %. pm1 Interpretation: normal. 17:10 Counseling: I had a detailed discussion with the patient and/or guardian regarding: the pm1 historical points, exam findings, and any diagnostic results supporting the discharge/admit diagnosis, lab results, radiology results, the need to transfer to another facility, [facility] does not immediately have the required specialist. 20:35 Physician consultation: MD Fung was contacted at 20:35, regarding regarding pm1 transfer, patient's condition, and will see patient Accepted for transfer to [facility] 03/04 13:22 Order name: Acetaminophen; Complete Time: 14:49 pm03/04 13:22 Order name: Basic Metabolic Panel; Complete Time: 14:49 pm03/04 13:22 Order name: CBC with Diff; Complete Time: 14:00 pm03/04 13:22 Order name: ETOH Level; Complete Time: 14:49 pm03/04 13:22 Order name: Hepatic Function; Complete Time: 14:49 pm03/04 13:22 Order name: PT-INR; Complete Time: 14:49 pm03/04 13:22 Order name: Ptt, Activated; Complete Time: 14:49 pm03/04 13:22 Order name: Salicylate; Complete Time: 15:08 pm03/04 13:22 Order name: Urine Drug Screen; Complete Time: 17:09 pm03/04 13:22 Order name: EKG; Complete Time: 13:28 pm03/04 13:37 Order name: SARS RAPID; Complete Time: 17:02 tw2 03/04 14:16 Order name: CT Head Brain wo Cont; Complete Time: 14:50 pm03/04 16:31 Order name: Urine Dipstick-Ancillary; Complete Time: 16:33 EDMS 03/04 13:22 Order name: EKG - Nurse/Tech; Complete Time: 13:55 pm03/04 13:22 Order name: IV Saline Lock; Complete Time: 13:55 pm03/04 13:22 Order name: Labs collected and sent; Complete Time: 13:55 pm03/04 13:22 Order name: Suicide Precautions; Complete Time: 14:43 pm03/04 13:22 Order name: Suicide Screening ([place]); Complete Time: 14:43 pm03/04 13:22 Order name: Urine Dipstick-Ancillary (obtain specimen); Complete Time: 16:30 pm03/04 13:47 Order name: Diet Finger Food; Complete Time: 13:49 em1 EC:41 Rate is 67 beats/min. Rhythm is regular, Normal Sinus Rhythm with No ectopy. QRS [place] pm1 is Normal. VA interval is normal. QRS interval is normal. QT interval is normal. No Q waves. T waves are Normal. No ST changes noted. Clinical impression: Normal ECG. Administered Medications: 14:59 Drug: Potassium Effervescent Tablet 50 mEq Route: PO; tw2 16:21 Follow up: Response: No adverse reaction ap3 Disposition Summary: 03/04/22 17:11 Transfer Ordered Transfer Location: Psych Facility pm1 Reason: Specialty pm1 Condition: Stable pm1 Problem: new pm1 Symptoms: are unchanged pm1 Accepting Physician: (03/05/22 00:33) marisol Diagnosis - Suicidal ideations pm1 - Hallucinations, unspecified pm1 - Cannabis abuse pm1 - Other stimulant abuse - Methamphetamine abuse pm1 Forms: - Medication Reconciliation Form pm1 - SBAR form pm1 Signatures: Dispatcher [employer] EDDorene Santos RN RN Nate Hannah MD MD cha Marinas, Patrick, PRODUCT SAFETY TECHNICAL ASSISTANT PRODUCT SAFETY TECHNICAL ASSISTANT pm1 Tina Lozada RN RN tw2 Courtney Rodrigues RN ap3 Corrections: (The following items were deleted from the chart) 16:25 16:14 Roman ordered. pm1 ap3 03/05 00:33 03/04 17:11 MD molly damon
[2022-03-05 03:45] VITALS: TEMP 98.6
[2022-03-05 04:01] VITALS: BP 126/90; O2SAT 100
--- NOTE | 2022-03-05 15:21 | EKG ---
Test Date: 2022-03-04 Test Time: 16:36:09 Speech Professor: RIANA MEASUREMENT RESULTS: Intervals: Rate: 67 WI: 134 QRSD: 90 QT: 388 QTc: 409 [place]: P: 15 WI: 134 QRS: 62 T: 70 INTERPRETIVE STATEMENTS: Normal sinus rhythm Early repolarization Normal ECG Compared to ECG 01/17/2019 17:11:57 Early repolarization now present Electronically Signed On 03-05-22 15:19:16 CDT by Stas Contreras
== END 2022-03-05 00:33 ==
LOC: ER 13:13
DX: R45.851 Suicidal ideations (principal); R44.3 Hallucinations, unspecified; F12.10 Cannabis abuse, uncomplicated; F15.10 Other stimulant abuse, uncomplicated; Z20.822 Contact with and (suspected) exposure to COVID-19; Z88.2 Allergy status to sulfonamides
CPT/HCPCS: 36415; 70450; 80048; 80076; 80307; 80320; 80329; 81003; 85025; 85610; 85730; 87811; 93005; 99285

== ENCOUNTER 2023-04-24 22:12 | Emergency (ER) | payer OTHER ==
--- OUTSIDE RECORDS SUMMARY | 2023-04-24 22:20 | XMS REPORT | Continuity of Care Document ---
:1995 Author Organization [facility] t Address [address] [facility]. [address] [place] [address] Care Team Providers Name Role Phone PCP, PATIENT DOES NOT HAVE A Primary Care Physician Unavaila CHAS Aragon Attending Clinician Unavailable Chas Villatoro MD Attending Clinician CHRIS DOLAN Attending Clinician Unavailable Chris Cunningham Attending Clinician Taylor Gonsalez Attending Clinician TAYLOR HORNE Attending Clinician Unavailable Gilberto Rodríguez Attending Clinician Payers Payer Name Policy Type Policy Number Effective Date Expiration Date compa MEDICARE PART A [id number] 2020 \\T\\ B 00:00:00 MEDICAID OF [place] [id number] 2022 00:00:00 Problems Condition Condition Condition Status Onset Resolution Last Treating Co mments Source Name Details Category Date Date Treatment Clinician Date ABD PAIN ABD PAIN Diagnosis Active 2018-10-12 Memoria Active 03-05 13:59:00 l 03/05/2018 00:00: Mehran PARADA GI- PEDI GI- Diagnosis Active 2012-01-25 Memoria ABD PAIN ABD PAIN 01-04 09:19:00 l LACTOSE* LACTOSE* 00:00: Javy pollock * * Active 00 01/05/2012 [facility] Personal Personal Problem 2018-09-22 Memoria history of history of 12:40:11 l nicotine nicotine Mehran n dependence dependence 9 [place] Nausea Nausea Problem 2018-09-22 [facility] michael 09/22/2018 12:40:11 l Adarsh [place] History of Past Illness Condition Condition Condition Status Onset Resolution Last Treating Co mments Source Name Details Category Date Date Treatment Clinician Date Epigastric Problem 2018-09-22 2018-09-22 Memoria pain Epigastric 8-03 12:40:11 12:40:11 l pain 03:20: [place] 03/10/2018 39 09/22/2018 [facility] Allergies, Adverse Reactions, Alerts Allergy Allergy Status Severity Reaction(s) Onset Inactive Treating Comm ents Source Name Type Date Date Clinician No Known DA Active U 2018-08 [facility] Allergie 0-15 [place] s 00:00: d 00 [facility] Sulfa Propensi Active Unknown - Unive rs (Sulfona ty to See comments 6-15 it y of mide adverse 00:00: [place] Antibiot reaction 00 Medica l ics) s Branch SULFA Drug Active Unknown-Cmnt Univ ers (SULFONA Class 6-15 ity of MIDE 00:00: [place] ANTIBIOT 00 Medical ICS) Branch sulfa sulfa Active Memoria drugs drugs l [place] Social History Social Habit Start Date Stop Date Quantity Comments Source Exposure to 2022-11-09 2022-11-19 Not sure [facility] SARS-CoV-2 (event) 00:00:00 16:39:00 Medica l Branch Social History 2018-03-05 2018-03-05 [facility] tita 18:46:46 18:46:46 Sex Assigned At [birth year] [facility] [place] [facility] 00:00:00 00:00:00 Medical Branch Smoking Status Start Date Stop Date Source Tobacco smoking consumption [facility] Medications Ordered Filled Start Stop Current Ordering Indication Dosage Frequency Signature Comments Components Source Medication Medication Date Date Medication? Clinician (SIG) Name Name cefTRIAXone Yes 500mg 500 mg, Un david (ROCEPHIN) 2-24 Intramuscu ity of injection 17:00: [place] Q24H, [place] 500 mg 00 First dose Medical on Tue Branch 10/01/22 at 1100, Until Discontinu ed, CLAUDIA
Re ason for Anti-Infec tive: Empiric Therapy for Suspected Infection< br>Empiric Therapy Site: Urine<b r>Duration of therapy: 5 days doxycycline 2022-0 2022- No 100mg 100 mg, U nivers hyclate 2-24 02-24 Oral, ity of (Vibramycin 16:30: 16:44 ONCE, 1 [place] capsule 00 :00 dose, On Medica l 100 mg Fri Branch 10/01/22 at 1030, CLAUDIA
Re ason for Anti-Infec tive: Empiric Therapy for Suspected Infection< br>Empiric Therapy Site: Urine
D uration of therapy: 5 days doxycycline 2022-0 2022- No [id number] 100mg Take 1 Univers hyclate 100 10-01 03-04 capsule by i ty of mg capsule 00:00: 05:59 mouth in [place] :00 the Medical morning Branch and 1 capsule in the evening. Do all this for 7 days. NaCl 0.9% 0 2021- No 1000mL at 999 Uni vers (NS) bolus 5-28 05-28 mL/hr, ity of infusion 03:30: 06:02 1,000 mL, Jameel as 1,000 mL 00 :00 IV Medical Infusion, Branch ONCE, 1 dose, On Tue01/01/22 at 2230, CLAUDIA cephALEXin 2021-0 Yes [id number] 500mg Take 1 Univers (KEFLEX) 5-28 capsule by ity o f 500 mg 00:00: mouth 4 [place] capsule 00 (four) Medical times Branch daily. cephALEXin 2021-0 Yes [id number] 500mg Take 1 Univers (KEFLEX) 5-28 capsule by ity o f 500 mg 00:00: mouth 4 [place] capsule 00 (four) Medical times Branch daily. cephALEXin 2021-0 Yes [id number] 500mg Take 1 Univers (KEFLEX) 5-28 capsule by ity o f 500 mg 00:00: mouth 4 [place] capsule 00 (four) Medical times Branch daily. Famotidine Yes 40 mg = 1 Me moria 40 MG Oral 7-29 tab, PO, l Tablet 20:06: Daily, # Adarsh [Pepcid] 00 30 tab, 0 Refill(s) Famotidine Yes 40 mg = 1 Me moria 40 MG Oral 7-29 tab, PO, l Tablet 20:06: Daily, # [place] [Pepcid] 00 30 tab, 0 Refill(s) Famotidine Yes 40 mg = 1 Me moria 40 MG Oral 7-29 tab, PO, l Tablet 20:06: Daily, # [place] [Pepcid] 00 30 tab, 0 Refill(s) GI cocktail No Notes: [facility] michael 7-29 G.I. l 17:42: Cocktail - Adarsh 00 aluminum hydroxide/ magnesium hydroxide/ lidocaine/ simethicon e Ondansetron No Notes: [facility] michael 7-29 (Same as: l 17:42: Zofran) Adarsh MEDICATION WASTE Product Size: 4 mg Product Wasted: ___ mg Morphine No Notes: Memoria 7-29 (Same l 17:42: as:MORPhin Adarsh e Sulfate) Sodium No 1,000 mL, Memori a Chloride -29 1000 l 0.9% 17:42: ml/hr, Adarsh (Bolus) IV 00 Infuse Over: 1 hr, Route: IV, 1,000, Drug form: INJ, ONCE, Priority: STAT, Dosing Weight 70.455 kg, Start date: 03/05/18 12:42:00 CDT, Stop date: 03/05/18 12:42:00 CDT Saline No Notes: Memoria Flush 0.9% 7-29 (Same as: l 17:42: BD [place] Posiflush) GI cocktail No Notes: Sanford michael 7-29 G.I. l 17:42: Cocktail - [place] 00 aluminum hydroxide/ magnesium hydroxide/ lidocaine/ simethicon e Ondansetron No Notes: [facility] michael 7-29 (Same as: l 17:42: Zofran) [place] 00 MEDICATION WASTE Product Size: 4 mg Product Wasted: ___ mg Morphine No Notes: Memoria 7-29 (Same l 17:42: as:MORPhin Adarsh 00 e Sulfate) Sodium No 1,000 mL, Memori a Chloride 7-29 1000 l 0.9% 17:42: ml/hr, Adarsh (Bolus) IV 00 Infuse Over: 1 hr, Route: IV, 1,000, Drug form: INJ, ONCE, Priority: STAT, Dosing Weight 70.455 kg, Start date: 03/05/18 12:42:00 CDT, Stop date: 03/05/18 12:42:00 CDT Saline No Notes: Memoria Flush 0.9% 7-29 (Same as: l 17:42: BD Adarsh 00 Posiflush) GI cocktail No Notes: Sanford michael 7-29 G.I. l 17:42: Cocktail - [place] 00 aluminum hydroxide/ magnesium hydroxide/ lidocaine/ simethicon e Ondansetron No Notes: [facility] michael 7-29 (Same as: l 17:42: Zofran) Adarsh 00 MEDICATION WASTE Product Size: 4 mg Product Wasted: ___ mg Morphine No Notes: Memoria 7-29 (Same l 17:42: as:MORPhin [place] 00 e Sulfate) Sodium No 1,000 mL, Memori a Chloride 7-29 1000 l 0.9% 17:42: ml/hr, [place] (Bolus) IV 00 Infuse Over: 1 hr, Route: IV, 1,000, Drug form: INJ, ONCE, Priority: STAT, Dosing Weight 70.455 kg, Start date: 03/05/18 12:42:00 CDT, Stop date: 03/05/18 12:42:00 CDT Saline No Notes: Memoria Flush 0.9% 7-29 (Same as: l 17:42: BD [place] 00 Posiflush) ondansetron Yes 4mg Take 1 Univ ers (ZOFRAN 6-15 tablet by ity of ODT) 4 mg 00:00: mouth [place] disintegrat 00 every 8 Medic al ing tablet (eight) Branch hours as needed for N/V unresponsi ve to Promethazi ne. ondansetron Yes 4mg Take 1 Univ ers (ZOFRAN 6-15 tablet by ity of ODT) 4 mg 00:00: mouth [place] disintegrat 00 every 8 Medic al ing tablet (eight) Branch hours as needed for N/V unresponsi ve to Promethazi ne. ondansetron 2016-0 Yes 4mg Take 1 Univ ers (ZOFRAN 6-15 tablet by ity of ODT) 4 mg 00:00: mouth [place] disintegrat 00 every 8 Medic al ing tablet (eight) Branch hours as needed for N/V unresponsi ve to Promethazi ne. Immunizations Ordered Filled Immunization Date Status Comments [facility] e Immunization Name Name Td 2022-01-01 Completed [facility] 00:00:00 [facility] TD, NOS 2022-01-01 Completed [facility] 00:00:00 [facility] TD, NOS 2022-01-01 Completed [facility] 00:00:00 [facility] Vital Signs Vital Name Observation Time Observation Value Comments Source Systolic blood 2022-11-19 21:41:00 130 mm[Hg] Univer [facility]ity [facility] Diastolic blood 2022-11-19 21:41:00 84 mm[Hg] Unive rsity of [facility] Heart rate 2022-11-19 21:41:00 97 /min [facility] Body temperature 2022-11-19 21:41:00 36.83 Chela [facility] Res[facility] rate 2022-11-19 21:41:00 16 /min [facility] Oxygen saturation in 2022-11-19 21:41:00 97 /min [facility] Arterial blood by [facility] Pulse oximetry Branch Body height 2022-11-19 21:38:00 177.8 cm [facility] Body weight 2022-11-19 21:38:00 82.555 kg [facility] BMI 2022-11-19 21:38:00 26.11 kg/m2 [facility] Systolic blood 2022-10-01 15:33:00 161 mm[Hg] Univer sity of [facility] Diastolic blood 2022-10-01 15:33:00 88 mm[Hg] Unive rsity of [facility] Heart rate 2022-10-01 15:33:00 78 /min [facility] Body temperature 2022-10-01 15:33:00 35.61 Chela [facility] [place] [facility] Respiratory rate 2022-10-01 15:33:00 16 /min [facility] [place] [facility] Oxygen saturation in 2022-10-01 15:33:00 97 /min University of Arterial blood by [facility] Pulse oximetry Branch Body height 2022-10-01 15:32:00 177.8 cm [facility] [place] [facility] Body weight 2022-10-01 15:32:00 70.308 kg [facility] [place] [facility] BMI 2022-10-01 15:32:00 22.24 kg/m2 [facility] [place] [facility] Systolic blood 2022-01-02 08:42:00 166 mm[Hg] Univer sity of pressure [place] [facility] Diastolic blood 2022-01-02 08:42:00 105 mm[Hg] Unive rsity of [facility] [place] [facility] Heart rate 2022-01-02 08:42:00 72 /min [facility] [place] [facility] Body temperature 2022-01-02 08:42:00 35.61 Chela [facility] [place] [facility] Respiratory rate 2022-01-02 08:42:00 14 /min [facility] [place] [facility] Oxygen saturation in 2022-01-02 08:42:00 100 /min University of Arterial blood by [facility] Pulse oximetry Branch Body height 2022-01-02 02:13:00 177.8 cm [facility] [place] [facility] Body weight 2022-01-02 02:13:00 59.648 kg [facility] [place] [facility] BMI 2022-01-02 02:13:00 18.87 kg/m2 [facility] [place] [facility] Heart Rate 2018-03-05 20:32:00 [facility] Temperature Oral (F) 2018-03-05 20:32:00 98.4 F [facility] Respitory Rate 2018-03-05 20:32:00 Memhanny al [place] Systolic (mm Hg) 2018-03-05 20:32:00 Sanford cary Adarsh Diastolic (mm Hg) 2018-03-05 20:32:00 Mem orial Adarsh Temperature Oral (F) 2018-03-05 17:40:00 98.4 F [facility] Height 2018-03-05 17:40:00 165.1 cm [facility] Weight 2018-03-05 17:40:00 Kwabena Altamirano BMI Calculated 2018-03-05 17:40:00 Juliana Thomas Respitory Rate 2018-03-05 17:40:00 Juliana Thomas Heart Rate 2018-03-05 17:40:00 Kwabena Altamirano Systolic (mm Hg) 2018-03-05 17:40:00 Sanfordmaddy rodriguezcarol Adarsh Diastolic (mm Hg) 2018-03-05 17:40:00 [place] orial Adarsh Procedures Procedure Date / Time Performing Clinician Source Performed ASSIGNMENT OF BENEFITS 2022-11-19 22:13:24 Doctor Unassigned, No [facility] Name [facility] RAPID STREP SCREEN FOR 2022-11-19 21:47:00 Chas Villatoro [facility] A [facility] CONSENT/REFUSAL FOR 2022-11-19 21:35:56 Doctor Unassigned, No [facility] Name [facility] URINALYSIS 2022-10-01 15:51:00 [facility] CONSENT/REFUSAL FOR 2022-10-01 15:29:28 Doctor Unassigned, No [facility] Name [facility] URINALYSIS 2022-01-02 06:02:00 [facility] URINE DRUG (IMMUNOASSAY) 2022-01-02 06:02:00 [facility] Horne [facility] DRUG Medical [facility] nch SCREEN W/O REFLEX LIPASE 2022-01-02 02:58:00 [facility] COMP. METABOLIC PANEL 2022-01-02 02:58:00 [id number] SALICYLATE 2022-01-02 02:58:00 [facility] ETHANOL 2022-01-02 02:58:00 [facility] CBC WITH DIFF 2022-01-02 02:58:00 [facility] NOTICE OF PRIVACY 2022-01-02 01:50:47 Doctor Unassigned, No [facility] [place] [facility] Name [facility] CONSENT/REFUSAL FOR 2022-01-02 01:50:11 Doctor Unassigned, No [facility] Name [facility] Otoplasty [facility] Encounters Start End Encounter Admission Attending Care Care Encounter Source Date/Time Date/Time Type Type Clinicians Facility Department ID 2022-03-04 Outpatient [facility] [id number] [place] 22:15:32 [id number] Health 2022-11-19 2022-11-19 Emergency [facility] [id number] Univers 16:39:00 17:43:00 CHAS [facility] 2022-11-19 2022-11-19 Emergency [facility] [id number] Univers 16:39:00 17:43:00 [facility] [id number] it y of Chai DUARTE [id number] [facility] [id number] [address] ([facility]) 2022-10-01 2022-10-01 Emergency Porter [facility] [id number] Univers 09:34:00 11:08:00 [facility] 2022-10-01 2022-10-01 [facility] [id number] Univers 09:34:00 11:08:00 [facility] [id number] it y of GERALD [id number] [facility] [id number] [address] ([facility]) 2022-01-01 2022-01-02 [facility] [id number] Univers 21:16:00 07:12:00 Taylor SIEGEL [id number] ity of KITTY [id number] [facility] [id number] [address] 2022-01-01 2022-01-02 Emergency X [facility] E[facility] [id number] Univers 21:16:00 07:12:00 TAYLOR castañeda [facility] 2018-11-13 2018-11-13 Outpatient MHIE MHIE [id number] Memoria 18:17:00 18:17:00 00 carol [place] 2018-11-13 2018-11-13 Outpatient TARA TARA [id number] Memoria 18:17:00 18:17:00 00 carol [place] 2018-03-05 2018-03-05 Emergency nullFlavo [facility] [id number] Memoria 17:26:00 20:36:[address] 2018-03-05 2018-03-05 Emergency nullFlavo [facility] [id number] Memoria 17:26:00 20:36:[address] 2018-03-05 2018-03-05 [id number] 12:26:00 15:36:00 Gilberto Ramirez 2018-03-05 2018-03-05 Outpatient Hartshorne, [facility] [id number] 12:26:00 15:36:00 Gilberto Ramirez 2012-01-25 2012-01-25 Outpatient nullFlavo [facility] [id number] Memoria 09:10:00 09:10:[address] 2012-01-25 2012-01-25 Outpatient nullFlavo [facility] [id number] Memoria 09:10:00 09:10:[address] Results Test Description Test Time Test Comments Results Result Comments Source ETHANOL 2022-01-02 03:54:30 Test Item Value Reference Range Interpretation Comme nts ALCOHOL (test code = 9867321261) <10 mg/dL ZHANNA (test code = ZHANNA) <10 [id number] Toxic>100 Depression of FARM MANAGEMENT ADVISER>400 Fatalities Reported [facility]2022-05-28 03:54:25 Test Item Value Reference Range Interpretation Comments SALICYLATE (test code <10 mg/L = 2411491123) ZHANNA (test code = ZHANNA) Therapeutic Range: ? Analgesic and Antipyretic Use ? 20-100 mg/L ? ? Anti-Inflammatory Use ? 100-250 mg/L Toxic Range: ? Greater than 300 mg/L [facility]ET[facility]IN[facility]EN2022-05-28 03:54:00 Test Item Value Reference Range Interpretation Comments ACETAMINOP (test code = <10.0 10.0-30.0 L [id number]) ZHANNA (test code = ZHANNA) Toxic: Greater than 200 ug/mL @ 4 hour post ingestion or greater than 50 ug/mL @ 12 hour post ingestion Lab Interpretation (test Abnormal code = 07100-2) [facility]. METABOLIC PANEL (15967)2022-01-02 03:31:40 Test Item Value Reference Range Interpretation Comments NA (test code = 142 mmol/L 135-145 2200073462) K (test code = 3.9 mmol/L 3.5-5.0 1113224002) CL (test code = 103 mmol/L 98-108 9263880997) CO2 TOTAL (test code = 27 mmol/L 23-31 4334378397) AGAP (test code = 2-16 9103958320) BUN (test code = 17 mg/dL 7-23 2074992765) GLUCOSE (test code = 64 mg/dL 70-110 L 0847060968) CREATININE (test code = 1.00 mg/dL 0.60-1.25 8931140823) TOTAL BILI (test code = 0.9 mg/dL 0.1-1.9 6082785132) CALCIUM (test code = 9.6 mg/dL 8.6-10.6 6451547145) T PROTEIN (test code = 7.4 g/dL 6.3-8.2 1362709881) ALBUMIN (test code = 4.8 g/dL 3.5-5.0 8071071491) ALK PHOS (test code = 95 U/L 34-122 9487120759) ALTv (test code = 34 U/L 5-50 1742-6) AST(SGOT) (test code = 30 U/L 13-40 7860790270) eGFR (test code = mL/min/1.73m2 9048463073) ZHANNA (test code = ZHANNA) Association of Glomerular Filtration Rate (GFR) and Staging of Kidney Disease* + --+ --+ ------+| GFR (mL/min/1.73 m2) ?| With Kidney Damage ?| ?Without Kidney Damage+ --------+ --------+ +| ?>90 ?| ?Stage one ?| ? Normal ?+ ---+ ---+ -------+| ?60-89 ?| ?Stage two ?| ? Decreased GFR ? + --+ --+ ------+| ?30-59 ?| ?Stage three ?| ? Stage three ? + --+ --+ ------+| ?15-29 ?| ?Stage four ? | ? Stage four ?+ ---+ ---+ -------+| ?<15 (or dialysis) ? ?| ?Stage five ? | ? Stage five ?+ ---+ ---+ -------+ *Each stage assumes the associated GFR level has been in effect for at least three months. ?Stages 1 to 5, with or without kidney disease, indicate chronic kidney disease. Notes: Determination of stages one and two (with eGFR >59mL/min/1.73 m2) requires estimation of kidney damage for at least three months as defined by structural or functional abnormalities of the kidney, manifested by either:Pathological abnormalities or Markers of kidney damage (including abnormalities in the composition of the blood or urine or abnormalities in imaging tests). Lab Interpretation Abnormal (test code = 41093-4) [facility] PasoLIPASE2022-05-28 03:31:00 Test Item Value Reference Range Interpretation Comments LIPASE (test code = 2028098963) 80 U/L 0-220 Lab Interpretation (test code = Normal 55454-9) [facility] WITH [id number] 03:21:00 Test Item Value Reference Range Interpretation Comments WBC (test code = See_Comment [Automated 6956-2) message] The sy stem which generated this result transmitted reference range : 4.20 - 10.70 10*3/?L. The reference range was not used to interpret this result as normal/abnormal . RBC (test code = See_Comment [Automated 063-8) message] The sy stem which generated this result transmitted reference range : 4.26 - 5.52 10*6/?L. The reference range was not used to interpret this result as normal/abnormal . HGB (test code = 16.0 g/dL 12.2-16.4 718-7) HCT (test code = 46.5 % 38.4-49.3 4544-3) MCV (test code = 87.9 fL 81.7-95.6 787-2) MCH (test code = 30.2 pg 26.1-32.7 785-6) MCHC (test code = 34.4 g/dL 31.2-35.0 786-4) RDW-SD (test code = 39.1 fL 38.5-51.6 47013-6) RDW-CV (test code = 12.1 % 12.1-15.4 788-0) PLT (test code = See_Comment [Automated 777-3) message] The sy stem which generated this result transmitted reference range : 150 - 328 10*3/ ?L. The reference r elaine was not used to interpret this result as normal/abnormal . MPV (test code = 9.3 fL 9.8-13.0 L 89034-0) NRBC/100 WBC (test See_Comment [Automat ed code = 0688490839) message] The system which generated this result transmitted reference range : 0.0 - 10.0 /100 WBCs. The refer ence range was not u sed to interpret th is result as normal/abnormal . NRBC x10^3 (test code <0.01 See_Comment [Auto mated = 9986097520) message] The s ystem which generated this result transmitted reference range : 10*3/?L. The reference range was not used to interpret this result as normal/abnormal . GRAN MAT (NEUT) % 58.1 % (test code = 770-8) IMM GRAN % (test code 0.30 % = 5609264889) LYMPH % (test code = 31.3 % 736-9) MONO % (test code = 9.2 % 5905-5) EOS % (test code = 0.5 % 713-8) BASO % (test code = 0.6 % 706-2) GRAN MAT x10^3(ANC) 3.77 10*3/uL 1.99-6.95 (test code = 9284050164) IMM GRAN x10^3 (test <0.03 0.00-0.06 code = 6079096341) LYMPH x10^3 (test code 2.03 10*3/uL 1.09-3.23 = 731-0) MONO x10^3 (test code 0.60 10*3/uL 0.36-1.02 = 742-7) EOS x10^3 (test code = 0.03 10*3/uL 0.06-0.53 L 711-2) BASO x10^3 (test code 0.04 10*3/uL 0.01-0.09 = 704-7) Lab Interpretation Abnormal (test code = 25272-8) [facility] AND [id number] 19:03:00 Test Item Value Reference Range Interpretation Comments Occult Bld Stl (test Negative (03/05/18 2:03 code = Occult Bld Stl) PM) [facility] AND [id number] 19:03:00 Test Item Value Reference Range Interpretation Comments Occult Bld Stl (test Negative (03/05/18 2:03 code = Occult Bld Stl) PM) [facility] AND [id number] 19:03:00 Test Item Value Reference Range Interpretation Comments Occult Bld Stl (test Negative (03/05/18 2:03 code = Occult Bld Stl) PM) [facility] AND [id number] 18:56:00 Test Item Value Reference Range Interpretation Comments UA RBC (test code = 7 See_Comment [Automa lucy message] The UA RBC) system which ge nerated this result transmit lucy reference range : <=2. The reference range was not used to interpr et this result as bello l/abnormal. [facility] AND [id number] 18:56:00 Test Item Value Reference Range Interpretation Comments UA Bacteria (test code = UA Occasional /HPF Bacteria) [facility] AND [id number] 18:56:00 Test Item Value Reference Range Interpretation Comments UA Spec Grav (test code = UA Spec 1.017 1 Grav) [facility] AND [id number] 18:56:00 Test Item Value Reference Range Interpretation Comments UA pH (test code = UA pH) 6.0 1 5.0-8.0 [facility] AND [id number] 18:56:00 Test Item Value Reference Range Interpretation Comments UA Color (test code = Yellow *NA*(03/05/18 UA Color) 1:56 PM) [facility] AND [id number] 18:56:00 Test Item Value Reference Range Interpretation Comments UA Turbidity (test code = Clear (03/05/18 1:56 UA Turbidity) PM) [facility] AND [id number] 18:56:00 Test Item Value Reference Range Interpretation Comments UA Protein (test code = UA Negative mg/dL Protein) [facility] AND [id number] 18:56:00 Test Item Value Reference Range Interpretation Comments UA Bili (test code = Negative *NA*(03/05/18 UA Bili) 1:56 PM) [facility] AND [id number] 18:56:00 Test Item Value Reference Range Interpretation Comments UA Blood (test code = Negative (03/05/18 1:56 UA Blood) PM) [facility] AND [id number] 18:56:00 Test Item Value Reference Range Interpretation Comments UA Glucose (test code = UA Negative mg/dL Glucose) [facility] AND [id number] 18:56:00 Test Item Value Reference Range Interpretation Comments UA Ketones (test code = UA Negative mg/dL Ketones) [facility] [facility]2018[facility] 18:56:00 Test Item Value Reference Range Interpretation Comments Lipase Lvl (test code = Lipase Lvl) 87 73-[address] [facility]2018-07-29 18:56:00 Test Item Value Reference Range Interpretation Comments Bili Total (test code = Bili Total) 0.6 0.2-1.[address] [facility]2018-07-29 18:56:00 Test Item Value Reference Range Interpretation Comments Alk Phos (test code = Alk Phos) 125 39-[address] [facility]2018-07-29 18:56:00 Test Item Value Reference Range Interpretation Comments eGFR (test code = eGFR) [address] [facility]2018-07-29 18:56:00 Test Item Value Reference Range Interpretation Comments AST (test code = AST) 29 See_Comment [Auto mated message] The system which ge nerated this result transmit lucy reference range : <=37. The reference range was not used to interpr et this result as bello l/abnormal. [facility] [id number] 18:56:00 Test Item Value Reference Range Interpretation Comments ALT (test code = ALT) 65 See_Comment [Auto mated message] The system which ge nerated this result transmit lucy reference range : <=65. The reference range was not used to interpr et this result as bello l/abnormal. [facility]2018-07-29 18:56:00 Test Item Value Reference Range Interpretation Comments BUN (test code = BUN) 12 7-[address] [facility]2018-07-29 18:56:00 Test Item Value Reference Range Interpretation Comments Glucose Lvl (test code = Glucose Lvl) 79 70-[address] [facility]2018-07-29 18:56:00 Test Item Value Reference Range Interpretation Comments Potassium Lvl (test code = Potassium 4.1 3.5-5.1 Lvl) [facility]2018-07-29 18:56:00 Test Item Value Reference Range Interpretation Comments Sodium Lvl (test code = Sodium Lvl) 141 135-[address] [facility]2018-07-29 18:56:00 Test Item Value Reference Range Interpretation Comments Creatinine Lvl (test code = Creatinine 0.96 0.50-1.40 Lvl) [facility]2018-07-29 18:56:00 Test Item Value Reference Range Interpretation Comments Calcium Lvl (test code = Calcium Lvl) 9.6 8.5-10.[address] [facility]2018-07-29 18:56:00 Test Item Value Reference Range Interpretation Comments Chloride Lvl (test code = Chloride Lvl) 104 95-[address] [facility]2018-07-29 18:56:00 Test Item Value Reference Range Interpretation Comments CO2 (test code = CO2) 33 24-[address] [facility]2018-07-29 18:56:00 Test Item Value Reference Range Interpretation Comments Total Protein (test code = Total 8.1 6.4-8.4 Protein) [facility]2018-07-29 18:56:00 Test Item Value Reference Range Interpretation Comments Albumin Lvl (test code = Albumin Lvl) 4.6 3.5-5.[address] [facility]2018-07-29 18:56:00 Test Item Value Reference Range Interpretation Comments AGAP (test code = AGAP) 8.1 10.0-20.[address] [facility]2018-07-29 18:56:00 Test Item Value Reference Range Interpretation Comments Globulin (test code = Globulin) 3.5 2.7-4.2 [facility] [id number] 18:56:00 Test Item Value Reference Range Interpretation Comments A/G Ratio (test code = A/G Ratio) 1.3 1 0.7-1.6 [facility] [id number] 18:56:00 Test Item Value Reference Range Interpretation Comments B/C Ratio (test code = B/C Ratio) 12 1 6-25 [facility]ON[facility]CL[facility] 18:56:00 Test Item Value Reference Range Interpretation Comments MCH (test code = MCH) 31.3 pg 27.0-31.0 [facility] BrookLdzbtnxKERYEFUYBP9842-00-97 18:56:00 Test Item Value Reference Range Interpretation Comments Hct (test code = Hct) 44.7 42.0-54.0 [facility] BrookVtohgdeBIMYWCHNNQ9826-06-63 18:56:00 Test Item Value Reference Range Interpretation Comments Hgb (test code = Hgb) 15.6 14.0-18.0 [facility] BrookWzubdnoYDPMHGBTKJ0545-58-81 18:56:00 Test Item Value Reference Range Interpretation Comments WBC (test code = WBC) 6.6 3.7-10.4 [facility] BrookZikwcorLJTXVBXCQV5037-15-97 18:56:00 Test Item Value Reference Range Interpretation Comments RDW (test code = RDW) 12.9 11.5-14.5 [facility] BrookAfhpknjASRTWVCECP7206-66-34 18:56:00 Test Item Value Reference Range Interpretation Comments MCHC (test code = MCHC) 34.8 32.0-36.0 [facility] BrookEbkqmjoRORLJAJQPP8218-65-94 18:56:00 Test Item Value Reference Range Interpretation Comments MCV (test code = MCV) 89.8 80.0-94.0 [facility] BrookQwbkyhnGDIOODIEKM8085-03-24 18:56:00 Test Item Value Reference Range Interpretation Comments RBC (test code = RBC) 4.97 4.70-6.10 [facility] BrookAfhbwbkDNCRVJNWCY6453-14-99 18:56:00 Test Item Value Reference Range Interpretation Comments MPV (test code = MPV) 8.0 7.4-10.4 [facility] BrookJrplappDMUNWMPHGR8518-77-91 18:56:00 Test Item Value Reference Range Interpretation Comments Platelet (test code = Platelet) 311 456-450 [facility] BrookTfywtgdDMSQIZKFEK5742-10-16 18:56:00 Test Item Value Reference Range Interpretation Comments Basophils # (test code 0.1 See_Comment [Aut omated message] The = Basophils #) system which generated this result tra nsmitted reference range : <=0.2. The reference r elaine was not used to int erpret this result as normal/abnormal . [facility] BrookBolvkkvZFGENZLWIE6089-98-19 18:56:00 Test Item Value Reference Range Interpretation Comments Eosinophils # (test code 0.4 See_Comment [A utomated message] The = Eosinophils #) system whic h generated this result tra nsmitted reference range : <=0.5. The reference r elaine was not used to int erpret this result as normal/abnormal . [facility] BrookAfjmfedAOEKNRBVTM5999-50-66 18:56:00 Test Item Value Reference Range Interpretation Comments Monocytes # (test code 0.5 See_Comment [Aut omated message] The = Monocytes #) system which generated this result tra nsmitted reference range : <=0.8. The reference r elaine was not used to int erpret this result as normal/abnormal . [facility] BrookRnnphcxNYGLGORZGQ6995-91-24 18:56:00 Test Item Value Reference Range Interpretation Comments Neutrophils # (test code = Neutrophils 3.4 1.5-8.1 #) [facility] BrookEkpltyxERHWPRYDCK4951-27-80 18:56:00 Test Item Value Reference Range Interpretation Comments Lymphocytes # (test code = Lymphocytes 2.2 1.0-5.5 #) [facility] BrookEzkzxizXNAMAAYSQC4918-73-32 18:56:00 Test Item Value Reference Range Interpretation Comments Segs (test code = Segs) 51.6 45.0-75.0 [facility] BrookOfvwfmcQAEXZCRNLA2342-78-71 18:56:00 Test Item Value Reference Range Interpretation Comments Eosinophils (test code = 5.8 See_Comment [A utomated message] The Eosinophils) system which ge nerated this result tra nsmitted reference range : <=4.0. The reference r elaine was not used to int erpret this result as normal/abnormal . [facility] BrookDqptxhfSMCHXTNNPX9136-72-10 18:56:00 Test Item Value Reference Range Interpretation Comments Basophils (test code = 1.1 See_Comment [Aut omated message] The Basophils) system which ge nerated this result tra nsmitted reference range : <=1.0. The reference r elaine was not used to int erpret this result as normal/abnormal . [facility]thTSZBTCQRUG3298-[facility]-14 18:56:00 Test Item Value Reference Range Interpretation Comments Lymphocytes (test code = Lymphocytes) 33.2 20.0-40.0 [facility] BrookIobmdeuSBCFZYAHVY1178-04-46 18:56:00 Test Item Value Reference Range Interpretation Comments Monocytes (test code = Monocytes) 8.3 2.0-12.0 [facility] AND [id number] 18:56:00 Test Item Value Reference Range Interpretation Comments UA Sq Epi (test code = UA Sq Occasional /LPF Epi) [facility] AND [id number] 18:56:00 Test Item Value Reference Range Interpretation Comments UA WBC (test code = no gt See_Comment [Automa lucy message] The UA WBC) system which ge nerated this result transmit lucy reference range : <=5. The reference range was not used to interpr et this result as bello l/abnormal. [facility] AND [id number] 18:56:00 Test Item Value Reference Range Interpretation Comments UA Nitrite (test code Negative (03/05/18 1:56 = UA Nitrite) PM) [facility] AND [id number] 18:56:00 Test Item Value Reference Range Interpretation Comments UA Leuk Est (test Negative (03/05/18 1:56 code = UA Leuk Est) PM) [facility] AND [id number] 18:56:00 Test Item Value Reference Range Interpretation Comments UA Urobilinogen (test code = UA 2.0 0.1-1.0 Urobilinogen) [facility] AND [id number] 18:56:00 Test Item Value Reference Range Interpretation Comments UA Mucus (test code = UA Mucus) Many /LPF [facility] AND [id number] 18:56:00 Test Item Value Reference Range Interpretation Comments UA RBC (test code = 7 See_Comment [Automa lucy message] The UA RBC) system which ge nerated this result transmit lucy reference range : <=2. The reference range was not used to interpr et this result as bello l/abnormal. [facility] [id number] 18:56:00 Test Item Value Reference Range Interpretation Comments UA Bacteria (test code = UA Occasional /HPF Bacteria) [facility] AND [id number] 18:56:00 Test Item Value Reference Range Interpretation Comments UA Spec Grav (test code = UA Spec 1.017 1 Grav) [facility] AND [id number] 18:56:00 Test Item Value Reference Range Interpretation Comments UA pH (test code = UA pH) 6.0 1 5.0-8.0 [facility] AND [id number] 18:56:00 Test Item Value Reference Range Interpretation Comments UA Color (test code = Yellow *NA*(03/05/18 UA Color) 1:56 PM) [facility] AND [id number] 18:56:00 Test Item Value Reference Range Interpretation Comments UA Turbidity (test code = Clear (03/05/18 1:56 UA Turbidity) PM) [facility] AND [id number] 18:56:00 Test Item Value Reference Range Interpretation Comments UA Protein (test code = UA Negative mg/dL Protein) [facility] AND [id number] 18:56:00 Test Item Value Reference Range Interpretation Comments UA Bili (test code = Negative *NA*(03/05/18 UA Bili) 1:56 PM) [facility] AND [id number] 18:56:00 Test Item Value Reference Range Interpretation Comments UA Blood (test code = Negative (03/05/18 1:56 UA Blood) PM) [facility] AND [id number] 18:56:00 Test Item Value Reference Range Interpretation Comments UA Glucose (test code = UA Negative mg/dL Glucose) [facility] AND [id number] 18:56:00 Test Item Value Reference Range Interpretation Comments UA Ketones (test code = UA Negative mg/dL Ketones) [facility] [id number] 18:56:00 Test Item Value Reference Range Interpretation Comments Lipase Lvl (test code = Lipase Lvl) 87 73-393 [facility] [id number] 18:56:00 Test Item Value Reference Range Interpretation Comments Bili Total (test code = Bili Total) 0.6 0.2-1.[address] [facility]2018-07-29 18:56:00 Test Item Value Reference Range Interpretation Comments Alk Phos (test code = Alk Phos) 125 39-[address] [facility]2018-07-29 18:56:00 Test Item Value Reference Range Interpretation Comments eGFR (test code = eGFR) [address] [facility]2018-07-29 18:56:00 Test Item Value Reference Range Interpretation Comments AST (test code = AST) 29 See_Comment [Auto mated message] The system which ge nerated this result transmit lucy reference range : <=37. The reference range was not used to interpr et this result as bello l/abnormal. [facility]2018-07-29 18:56:00 Test Item Value Reference Range Interpretation Comments ALT (test code = ALT) 65 See_Comment [Auto mated message] The system which ge nerated this result transmit lucy reference range : <=65. The reference range was not used to interpr et this result as bello l/abnormal. [facility]2018-07-29 18:56:00 Test Item Value Reference Range Interpretation Comments BUN (test code = BUN) 12 7-[address] [facility]2018-07-29 18:56:00 Test Item Value Reference Range Interpretation Comments Lipase Lvl (test code = Lipase Lvl) 87 73-[address] [facility]2018-07-29 18:56:00 Test Item Value Reference Range Interpretation Comments Bili Total (test code = Bili Total) 0.6 0.2-1.[address] [facility]2018-07-29 18:56:00 Test Item Value Reference Range Interpretation Comments Alk Phos (test code = Alk Phos) 125 39-[address] [facility]2018-07-29 18:56:00 Test Item Value Reference Range Interpretation Comments eGFR (test code = eGFR) [address] [facility]2018-07-29 18:56:00 Test Item Value Reference Range Interpretation Comments AST (test code = AST) 29 See_Comment [Auto mated message] The system which ge nerated this result transmit lucy reference range : <=37. The reference range was not used to interpr et this result as bello l/abnormal. [facility]2018-07-29 18:56:00 Test Item Value Reference Range Interpretation Comments ALT (test code = ALT) 65 See_Comment [Auto mated message] The system which ge nerated this result transmit lucy reference range : <=65. The reference range was not used to interpr et this result as bello l/abnormal. [facility]2018-07-29 18:56:00 Test Item Value Reference Range Interpretation Comments BUN (test code = BUN) 12 7-[address] [facility]2018-07-29 18:56:00 Test Item Value Reference Range Interpretation Comments Glucose Lvl (test code = Glucose Lvl) 79 70-[address] [facility]2018-07-29 18:56:00 Test Item Value Reference Range Interpretation Comments Potassium Lvl (test code = Potassium 4.1 3.5-5.1 Lvl) [facility]2018-07-29 18:56:00 Test Item Value Reference Range Interpretation Comments Sodium Lvl (test code = Sodium Lvl) 141 135-[address] [facility]2018-07-29 18:56:00 Test Item Value Reference Range Interpretation Comments Creatinine Lvl (test code = Creatinine 0.96 0.50-1.40 Lvl) [facility]2018-07-29 18:56:00 Test Item Value Reference Range Interpretation Comments Calcium Lvl (test code = Calcium Lvl) 9.6 8.5-10.[address] [facility]2018-07-29 18:56:00 Test Item Value Reference Range Interpretation Comments Chloride Lvl (test code = Chloride Lvl) 104 95-[address] [facility]2018-07-29 18:56:00 Test Item Value Reference Range Interpretation Comments CO2 (test code = CO2) 33 24-[address] [facility]2018-07-29 18:56:00 Test Item Value Reference Range Interpretation Comments Total Protein (test code = Total 8.1 6.4-8.4 Protein) [facility]2018-07-29 18:56:00 Test Item Value Reference Range Interpretation Comments Albumin Lvl (test code = Albumin Lvl) 4.6 3.5-5.[address] [facility]2018-07-29 18:56:00 Test Item Value Reference Range Interpretation Comments AGAP (test code = AGAP) 8.1 10.0-20.[address] [facility]2018-07-29 18:56:00 Test Item Value Reference Range Interpretation Comments Glucose Lvl (test code = Glucose Lvl) 79 70-[address] [facility]2018-07-29 18:56:00 Test Item Value Reference Range Interpretation Comments Globulin (test code = Globulin) 3.5 2.7-4.[address] [facility]2018-07-29 18:56:00 Test Item Value Reference Range Interpretation Comments A/G Ratio (test code = A/G Ratio) 1.3 1 0.7-1.[address] [facility]2018-07-29 18:56:00 Test Item Value Reference Range Interpretation Comments B/C Ratio (test code = B/C Ratio) 12 1 6-25 [facility] BrookOrqdnuyPXBGPLBYJS6421-98-06 18:56:00 Test Item Value Reference Range Interpretation Comments MCH (test code = MCH) 31.3 pg 27.0-31.0 [facility] BrookDyeqfdnCYHGQIUTKJ9947-67-01 18:56:00 Test Item Value Reference Range Interpretation Comments Hct (test code = Hct) 44.7 42.0-54.0 [facility] BrookYpcwzmbGMVZJRGVSO2051-46-92 18:56:00 Test Item Value Reference Range Interpretation Comments Hgb (test code = Hgb) 15.6 14.0-18.0 [facility] BrookQmhsmxwNMWCHXDZPP2283-80-73 18:56:00 Test Item Value Reference Range Interpretation Comments WBC (test code = WBC) 6.6 3.7-10.4 [facility] BrookMhlzvbwLRYUWNCGPX6631-87-53 18:56:00 Test Item Value Reference Range Interpretation Comments RDW (test code = RDW) 12.9 11.5-14.5 [facility] BrookBokilyzXWBXSHCUQP3927-40-08 18:56:00 Test Item Value Reference Range Interpretation Comments MCHC (test code = MCHC) 34.8 32.0-36.0 [facility] BrookOkxgiwrJFKNFCISSV9707-00-71 18:56:00 Test Item Value Reference Range Interpretation Comments MCV (test code = MCV) 89.8 80.0-94.[address] [facility]2018-07-29 18:56:00 Test Item Value Reference Range Interpretation Comments Potassium Lvl (test code = Potassium 4.1 3.5-5.1 Lvl) [address]07-29 18:56:00 Test Item Value Reference Range Interpretation Comments RBC (test code = RBC) 4.97 4.70-6.10 [facility] BrookLsidqahACSAMYUBEQ5798-68-89 18:56:00 Test Item Value Reference Range Interpretation Comments MPV (test code = MPV) 8.0 7.4-10.4 [facility] BrookVqyhruwJEAOCTESKZ5645-72-71 18:56:00 Test Item Value Reference Range Interpretation Comments Platelet (test code = Platelet) 311 133-450 [facility] BrookMqlajunNVRKBPNCSW7971-66-05 18:56:00 Test Item Value Reference Range Interpretation Comments Basophils # (test code 0.1 See_Comment [Aut omated message] The = Basophils #) system which generated this result tra nsmitted reference range : <=0.2. The reference r elaine was not used to int erpret this result as normal/abnormal . [facility] BrookSxkujwtWMSWCWEYHL1568-61-41 18:56:00 Test Item Value Reference Range Interpretation Comments Eosinophils # (test code 0.4 See_Comment [A utomated message] The = Eosinophils #) system whic h generated this result tra nsmitted reference range : <=0.5. The reference r elaine was not used to int erpret this result as normal/abnormal . [facility] BrookAqafuuyJHDVTXIVWQ5210-70-10 18:56:00 Test Item Value Reference Range Interpretation Comments Monocytes # (test code 0.5 See_Comment [Aut omated message] The = Monocytes #) system which generated this result tra nsmitted reference range : <=0.8. The reference r elaine was not used to int erpret this result as normal/abnormal . [facility] BrookJousmlwFPXMPCZKBV0631-40-74 18:56:00 Test Item Value Reference Range Interpretation Comments Neutrophils # (test code = Neutrophils 3.4 1.5-8.1 #) [facility] BrookPdkehvdLCPDORPACZ1997-71-06 18:56:00 Test Item Value Reference Range Interpretation Comments Lymphocytes # (test code = Lymphocytes 2.2 1.0-5.5 #) [facility] BrookLwsjtysQALJEFWILJ9667-32-24 18:56:00 Test Item Value Reference Range Interpretation Comments Segs (test code = Segs) 51.6 45.0-75.0 [facility] BrookVjitpndQCSPILWKKD1939-45-59 18:56:00 Test Item Value Reference Range Interpretation Comments Eosinophils (test code = 5.8 See_Comment [A utomated message] The Eosinophils) system which ge nerated this result tra nsmitted reference range : <=4.0. The reference r elaine was not used to int erpret this result as normal/abnormal . [facility] [id number] 18:56:00 Test Item Value Reference Range Interpretation Comments Sodium Lvl (test code = Sodium Lvl) 141 135-145 [facility] HospitalKygezkbSSXOKZDBMA4300-05-78 18:56:00 Test Item Value Reference Range Interpretation Comments Basophils (test code = 1.1 See_Comment [Aut omated message] The Basophils) system which ge nerated this result tra nsmitted reference range : <=1.0. The reference r elaine was not used to int erpret this result as normal/abnormal . [facility] BrookCcygqesPDINDEOVEY6463-77-77 18:56:00 Test Item Value Reference Range Interpretation Comments Lymphocytes (test code = Lymphocytes) 33.2 20.0-40.0 [facility] BrookVtkahbrXLEOQNYXND8372-54-04 18:56:00 Test Item Value Reference Range Interpretation Comments Monocytes (test code = Monocytes) 8.3 2.0-12.0 [facility] AND [id number] 18:56:00 Test Item Value Reference Range Interpretation Comments UA Sq Epi (test code = UA Sq Occasional /LPF Epi) [facility] AND [id number] 18:56:00 Test Item Value Reference Range Interpretation Comments UA WBC (test code = no gt See_Comment [Automa lucy message] The UA WBC) system which ge nerated this result transmit lucy reference range : <=5. The reference range was not used to interpr et this result as bello l/abnormal. [facility] AND [id number] 18:56:00 Test Item Value Reference Range Interpretation Comments UA Nitrite (test code Negative (03/05/18 1:56 = UA Nitrite) PM) [facility] AND [id number] 18:56:00 Test Item Value Reference Range Interpretation Comments UA Leuk Est (test Negative (03/05/18 1:56 code = UA Leuk Est) PM) [facility] AND [id number] 18:56:00 Test Item Value Reference Range Interpretation Comments UA Urobilinogen (test code = UA 2.0 0.1-1.0 Urobilinogen) [facility] AND [id number] 18:56:00 Test Item Value Reference Range Interpretation Comments UA Mucus (test code = UA Mucus) Many /LPF [facility] AND [id number] 18:56:00 Test Item Value Reference Range Interpretation Comments UA RBC (test code = 7 See_Comment [Automa lucy message] The UA RBC) system which ge nerated this result transmit lucy reference range : <=2. The reference range was not used to interpr et this result as bello l/abnormal. [facility] AND [id number] 18:56:00 Test Item Value Reference Range Interpretation Comments UA Bacteria (test code = UA Occasional /HPF Bacteria) [facility] AND [id number] 18:56:00 Test Item Value Reference Range Interpretation Comments UA Spec Grav (test code = UA Spec 1.017 1 Grav) [facility] AND [id number] 18:56:00 Test Item Value Reference Range Interpretation Comments UA pH (test code = UA pH) 6.0 1 5.0-8.0 [facility] AND [id number] 18:56:00 Test Item Value Reference Range Interpretation Comments UA Color (test code = Yellow *NA*(03/05/18 UA Color) 1:56 PM) [facility] AND [id number] 18:56:00 Test Item Value Reference Range Interpretation Comments UA Turbidity (test code = Clear (03/05/18 1:56 UA Turbidity) PM) [facility] AND [id number] 18:56:00 Test Item Value Reference Range Interpretation Comments UA Protein (test code = UA Negative mg/dL Protein) [facility] AND [id number] 18:56:00 Test Item Value Reference Range Interpretation Comments UA Bili (test code = Negative *NA*(03/05/18 UA Bili) 1:56 PM) [facility] AND [id number] 18:56:00 Test Item Value Reference Range Interpretation Comments UA Blood (test code = Negative (03/05/18 1:56 UA Blood) PM) [facility] AND [id number] 18:56:00 Test Item Value Reference Range Interpretation Comments UA Glucose (test code = UA Negative mg/dL Glucose) [facility] AND [id number] 18:56:00 Test Item Value Reference Range Interpretation Comments UA Ketones (test code = UA Negative mg/dL Ketones) [facility] [id number] 18:56:00 Test Item Value Reference Range Interpretation Comments Creatinine Lvl (test code = Creatinine 0.96 0.50-1.40 Lvl) [facility]2018-07-29 18:56:00 Test Item Value Reference Range Interpretation Comments Calcium Lvl (test code = Calcium Lvl) 9.6 8.5-10.[address] [facility]2018-07-29 18:56:00 Test Item Value Reference Range Interpretation Comments Chloride Lvl (test code = Chloride Lvl) 104 95-[address] [facility]2018-07-29 18:56:00 Test Item Value Reference Range Interpretation Comments CO2 (test code = CO2) 33 24-[address] [facility]2018-07-29 18:56:00 Test Item Value Reference Range Interpretation Comments Total Protein (test code = Total 8.1 6.4-8.4 Protein) [facility]2018-07-29 18:56:00 Test Item Value Reference Range Interpretation Comments Albumin Lvl (test code = Albumin Lvl) 4.6 3.5-5.[address] [facility]2018-07-29 18:56:00 Test Item Value Reference Range Interpretation Comments AGAP (test code = AGAP) 8.1 10.0-20.[address] [facility]2018-07-29 18:56:00 Test Item Value Reference Range Interpretation Comments Globulin (test code = Globulin) 3.5 2.7-4.[address] [facility]2018-07-29 18:56:00 Test Item Value Reference Range Interpretation Comments A/G Ratio (test code = A/G Ratio) 1.3 1 0.7-1.[address] [facility]2018-07-29 18:56:00 Test Item Value Reference Range Interpretation Comments B/C Ratio (test code = B/C Ratio) 12 1 6-25 [facility] 18:56:00 Test Item Value Reference Range Interpretation Comments MCH (test code = MCH) 31.3 pg 27.0-31.0 [facility]yzhajrRXTUDKVCZS0949-14-84 18:56:00 Test Item Value Reference Range Interpretation Comments Hct (test code = Hct) 44.7 42.0-54.0 [facility]ZcprxpfHCDVQTPGBV6721-40-59 18:56:00 Test Item Value Reference Range Interpretation Comments Hgb (test code = Hgb) 15.6 14.0-18.0 [facility]KeqdhzfKDUGETCUDP2551-92-44 18:56:00 Test Item Value Reference Range Interpretation Comments WBC (test code = WBC) 6.6 3.7-10.4 [facility]CmwacloVSBWLQOOLQ8702-27-69 18:56:00 Test Item Value Reference Range Interpretation Comments RDW (test code = RDW) 12.9 11.5-14.5 [facility]ArghflaQBVIOBMVTE0930-05-63 18:56:00 Test Item Value Reference Range Interpretation Comments MCHC (test code = MCHC) 34.8 32.0-36.0 [facility] BrookWoyockoNOBKFCQYIL9682-16-32 18:56:00 Test Item Value Reference Range Interpretation Comments MCV (test code = MCV) 89.8 80.0-94.0 [facility] BrookGwzafezHALYATCKXG2138-90-48 18:56:00 Test Item Value Reference Range Interpretation Comments RBC (test code = RBC) 4.97 4.70-6.10 [facility] BrookZqgswidOKPCWYZZPW3199-51-79 18:56:00 Test Item Value Reference Range Interpretation Comments MPV (test code = MPV) 8.0 7.4-10.4 [facility] BrookIxibbobAGCFAMGXRG1541-39-66 18:56:00 Test Item Value Reference Range Interpretation Comments Platelet (test code = Platelet) 311 133-450 [facility]MzmzfqmJONTQHSMYX8938-52-54 18:56:00 Test Item Value Reference Range Interpretation Comments Basophils # (test code 0.1 See_Comment [Aut omated message] The = Basophils #) system which generated this result tra nsmitted reference range : <=0.2. The reference r elaine was not used to int erpret this result as normal/abnormal . [facility] Bro[id number] 18:56:00 Test Item Value Reference Range Interpretation Comments Eosinophils # (test code 0.4 See_Comment [A utomated message] The = Eosinophils #) system whic h generated this result tra nsmitted reference range : <=0.5. The reference r elaine was not used to int erpret this result as normal/abnormal . [facility] BrookQrzwapiGGDOHZRBLO4296-30-88 18:56:00 Test Item Value Reference Range Interpretation Comments Monocytes # (test code 0.5 See_Comment [Aut omated message] The = Monocytes #) system which generated this result tra nsmitted reference range : <=0.8. The reference r elaine was not used to int erpret this result as normal/abnormal . [facility] BrookMhtrpvjICUGESSZUX3588-50-80 18:56:00 Test Item Value Reference Range Interpretation Comments Neutrophils # (test code = Neutrophils 3.4 1.5-8.1 #) [facility] BrookMvyerwdXASNNWIOUC4725-26-15 18:56:00 Test Item Value Reference Range Interpretation Comments Lymphocytes # (test code = Lymphocytes 2.2 1.0-5.5 #) [facility] Bro[id number] 18:56:00 Test Item Value Reference Range Interpretation Comments Segs (test code = Segs) 51.6 45.0-75.0 [facility] BrookYbhfrxrDELVZUWGTG5060-62-13 18:56:00 Test Item Value Reference Range Interpretation Comments Eosinophils (test code = 5.8 See_Comment [A utomated message] The Eosinophils) system which ge nerated this result tra nsmitted reference range : <=4.0. The reference r elaine was not used to int erpret this result as normal/abnormal . [facility] BrookLklttoxHYOMHCBAFD5770-25-13 18:56:00 Test Item Value Reference Range Interpretation Comments Basophils (test code = 1.1 See_Comment [Aut omated message] The Basophils) system which ge nerated this result tra nsmitted reference range : <=1.0. The reference r elaine was not used to int erpret this result as normal/abnormal . [facility] BrookUfsfvfoELYEMVMVRC7618-48-09 18:56:00 Test Item Value Reference Range Interpretation Comments Lymphocytes (test code = Lymphocytes) 33.2 20.0-40.0 [facility] Bro[id number] 18:56:00 Test Item Value Reference Range Interpretation Comments Monocytes (test code = Monocytes) 8.3 2.0-12.0 [facility]2018-07-29 18:56:00 Test Item Value Reference Range Interpretation Comments UA Sq Epi (test code = UA Sq Occasional /LPF Epi) [facility] [id number] 18:56:00 Test Item Value Reference Range Interpretation Comments UA WBC (test code = no gt See_Comment [Automa lucy message] The UA WBC) system which ge nerated this result transmit lucy reference range : <=5. The reference range was not used to interpr et this result as bello l/abnormal. [facility] [id number] 18:56:00 Test Item Value Reference Range Interpretation Comments UA Nitrite (test code Negative (03/05/18 1:56 = UA Nitrite) PM) [facility] [id number] 18:56:00 Test Item Value Reference Range Interpretation Comments UA Leuk Est (test Negative (03/05/18 1:56 code = UA Leuk Est) PM) [facility] [id number] 18:56:00 Test Item Value Reference Range Interpretation Comments UA Urobilinogen (test code = UA 2.0 0.1-1.0 Urobilinogen) [facility] [id number] 18:56:00 Test Item Value Reference Range Interpretation Comments UA Mucus (test code = UA Mucus) Many /LPF [facility] Notes Date/Time Note Provider Source 2019-05-22 14:50:00-00:00 [facility] ([facility] EMERGENCY PROVIDER REPORT REPORT#:[id number] REPORT STATUS: Signed DATE:05/22/19 TIME:1449 PATIENT: RENATA ROJAS UNIT #: [id number] ROOM/BED: : 95 AGE: 23 SEX: M PCP PHYS: No Primar y or Family Physician SERVICE AUTHOR: Junito Cheek MD * ALL edits or amendments must be made on the el ectronic/computer document * HPI-General Illness Free Text HPI Notes Free Text HPI Notes 23 y/o M with PMHx of anxiet y presents to the ED with request to refill anxiety medication. Pt reports marcela hollins multiple anxiety medication, including Zoloft and Abilify and has not had any meds in the past wee k. Today, he reports feeling very "jittery" and notes his hands are very diap horetic. Pt reports he was advised to visit ED for refill medication by PCP . Pt denies any pain at this time. Also denies any SI, HI, or any audio/visua l hallucinations. General Confirmed Patient Yes Patient Type New patient Initial Greet Date/Time 05/22/19 1443 Presentation Chief Complaint Medication refill Hx Obtained From Patient, Guardian (mother) Sudden in Onset? No Onset Occurred One week ago Symptom Duration Since onset Progression since Onset Unchanged Caused by No trauma by history Severity: Onset Moderate Severity: Current Moderate Associated with Reports: Diaphoresis. Denies: Abdominal pain, Fe herbert, Loss of consciousness, Pain, Shortness of breath, Vomiting. Exacerbated by Nothing Relieved by Nothing Context Immunization Status General Unknown Portions of this section were scribed by Raudel Grover on 05/22/19 at 1557 Review of Systems ROS Statements All systems rev neg except as marked. Review of Systems Constitutional Denies: Chills, Fever. Eyes Denies: Discharge bilat, Redness bilat. Ears/Nose/Throat Denies: Nasal congestion, Sinus problem. Respiratory Denies: Cough, non-productiv e, Cough, productive, Dyspnea on exertion, Shortness of breath. Cardiovascular Denies: Chest pain, Dyspnea on exertion, Edema. GI Denies: Abdominal pain, Nausea, Vomiting. Male Denies: Dysuria, Flank pain. Musculoskeletal Denies: Back pain, Extremity pain, Extremity swe lling. Hematologic Denies: Bleeding, Bruising. Skin Reports: Diaphoresis. Denies: Abrasion, Lacerati on, Rash, Swelling. Neurologic Denies: Dizziness, Generalized weakness, Headach e. Psychiatric Reports: Anxiety, Stress. Denies: Hallucinations , auditory, Hallucinations, visual, Homicidal ideation, Suicidal ideation. Portions of this section were scribed by Raudel Grover on 05/22/19 at 1557 Past Medical History - Adult Stated Complaint NEEDS PSYCHIATRIC MEDICINE Allergies Coded Allergies: No Known Allergies (05/22/19) Review of Nursing Notes Rev avail, and agree Pt reports no significant: Past surgical history Additional Medical History anxiety Portions of this section were scribed by Raudel Grover on 05/22/19 at 1557 Physical Exam Vital Signs Vital Signs First Documented: Result Date Time Pulse Ox 99 05/22 144 B/P 147/83 05/22 1442 B/P Mean 104 05/22 1442 O2 Delivery Room air 05/22 1442 Temp 98.4 05/22 1442 Pulse 89 05/22 1442 Resp 16 05/22 1442 Last Documented: Result Date Time Pulse Ox 99 05/22 144 B/P 147/83 05/22 1442 B/P Mean 104 05/22 1442 O2 Delivery Room air 05/22 1442 Temp 98.4 05/22 1442 Pulse 89 05/22 144 Resp 16 05/22 144 Review of Vital Signs Reviewed Basic Physical Exam Basic PE GEN: Well appearing /NAD, HEAD: Atraumatic/NC, EYES: PERRL, conj clear, ENT: Membranes moist, NECK: Supple, RESP: No res p distress, CV: Reg rate rhythm, ABD: Soft/non-tender , EXT: No gross abnormality, SKIN: No rashes, warm/ dry, NEURO: alert oriented, NEURO: gross movemen t NL, PSYCH: NL thought content Physical Exam General/Const General/Const Awake, Alert, No acute distress MS Head Head Atraumatic, Normocephalic Neurologic Neurologic Oriented X3, Speech NL, Gait NL Psychiatric Psychiatric Not suicidal, Not homicidal, No elizabeth lucinations Portions of this section were scribed by Raudel Grover on 05/22/19 at 1557 Interpretation Diagnostics Point of Care Testing Pulse Oximetry Pulse Ox % 99 On: Room air Interpretation Interpreted by me, Pulse oximetr y normal Time 1442 Portions of this section were scribed by Raudel Grover on 05/22/19 at 1557 Re-Evaluation MDM Free Text MDM Notes Free Text MDM Notes Pt presents to ED for medication refill, pt requ esting multiple psychiatric medication refills, I told patient I was unwilling to refill these medications and directed him to psychiatry, pt left angry without taking paperwork, pt was not suicidal, homicidal, or experiencing AV batista ucinations. Patient Discharge Departure Vital Signs/Condition Vital Signs First Documented: Result Date Time Pulse Ox 99 05/22 1442 B/P 147/83 05/22 1442 B/P Mean 104 05/22 1442 O2 Delivery Room air 05/22 1442 Temp 98.4 05/22 1442 Pulse 89 05/22 1442 Resp 16 05/22 1442 Last Documented: Result Date Time Pulse Ox 99 05/22 1442 B/P 147/83 05/22 1442 B/P Mean 104 05/22 1442 O2 Delivery Room air 05/22 1442 Temp 98.4 05/22 1442 Pulse 89 05/22 1442 Resp 16 05/22 1442 All vital signs available at the time of this en try have been reviewed. Condition Stable Clinical Impression Clinical Impression Primary Impression: Encounter for medication ref ill Secondary Impressions: Anxiety Disposition Decision Other )( Time 1452 )( Date 05/22/19 Against Medical Advice Yes Discharge/Care Plan Counseled Regarding Diagnosis, Need for follow-u p, When to return to ED Against Medical Advice AMA Note 1 Pt has decided to leave our facility against medical advice. I have assessed the patient's ability to make an informed decision and it is my opinion at this time that the patient has the medical decision-making capacity to comprehend information regarding current medical condition and appreciates the impact of the disease or condition and the consequences of various options for treatment, including foregoing treatmen t. The patient possesses the ability to evaluate all treatment options, compare the risks and benefit s of each option, communicate choice in a consistent enriqueta r over time, and is able to make rational choices. I have explained to the patien t further testing, treatment, and evaluation I would like to perform during the current emergency dep artment visit as well as any possible alternatives that could be accomplished in a timely manner. I have outlined the possible risks of foregoing any or all of these interventions and the patient understands and acknowledges that the decision to leave may result in undesirable consequences such as , permanent disability, and/or loss of current lifestyle. Even though leaving A MA is not ideal, I have instructed the patient to follow any discharge instructions giv en, take any medications prescribed, and resume care as soon as possible with another provider. Additionally, we clearly stated that the patient is welcome to return at any time to continue care at our facility. Cognition Alert, Oriented X 3, Answers a ppropriate, Speaks coherently, Thought process intact, Understands AMA, Explains AMA ra tionally Competent to Decide Yes Reason for leaving AMA Refused to stay Discussed Options to AMA Yes Present for Explanation Myself, Nurse, Family Care Info Explained Clinical information, Releva nt issues Supervising Physician Note Scribe Statement Raudel Aggarwal, 05/22/19 1 451, scribing for and in the presence of Dr. Cheek. Signed By: Raudel Aggarwal, 05/22/19 [id number] Provider Scribed Statement I personally performed the s ervices described in this documentation and reviewed the documentation that was dictated to the scrib e(s) in my presence, and it accurately records my words and actions. Junito Cheek, 05/23/19 Portions of this section were scribed by Raudel Grover on 05/22/19 at 1557 Electronically Signed by Junito Cheek MD on 1 at 1651 RPT #: [id number] END OF REPORT 2018-03-05 12:42:00-00:00 Clinical Indication: - Upper abdominal pain and right upper quadrant pain [facility] Comparison: Abdominal ultrasound October 07, 2009. TECHNIQUE: [...]
[2023-04-24] MEDS ORDERED: IBUPROFEN 400 MG TAB ONE (23:36)
[2023-04-24] MEDS ORDERED: HYDROCODONE/APAP 7.5/325 MG TAB ONE (23:36)
[2023-04-24] MEDS ORDERED: LIDOCAINE 1% MPF 5 ML VIAL ONE (23:36)
[2023-04-24] MEDS ORDERED: BUPIVACAINE 0.5% PF 10 ML VIAL ONE (23:36)
--- NOTE | 2023-04-25 01:28 | EDPHYS ---
Physician Documentation [facility] Name: Cole Ball Age: 27 yrs Sex: Male : 1995 Arrival Date: 04/24/2023 Time: 22:12 Bed 11 Private MD: ED Physician Ignacio Doran HPI: 04/24 23:20 This 27 yrs old Male presents to ER via Ambulatory with complaints of Laceration To cp Hand. 23:20 The patient or guardian reports injury, a laceration, clean, pain. The complaints cp affect the MCP of right little finger. Context: resulted from using own fist to strike, metal stop sign. Onset: The symptoms/episode began/occurred 2 hour(s) ago. 23:20 Associated signs and symptoms: Pertinent negatives: cyanosis distally, numbness cp distally. Severity of symptoms: in the emergency department the symptoms are unchanged, despite home interventions. Historical: - Allergies: 23:15 Sulfa (Sulfonamide Antibiotics); pf1 - PMHx: 23:15 Anxiety; Bipolar disorder; Depression; mitral valve prolapse; Schizophrenia; ulcerative pf1 colitis; - Immunization history:: Adult Immunizations up to date, Client reports receiving the 1st dose of the Covid vaccine, Last tetanus immunization: < 5 years ago Flu vaccine is up to date. - Social history:: Smoking status: Patient reports the use of cigarette tobacco products, smokes one pack cigarettes per day. ROS: 23:25 Constitutional: Negative for body aches, chills, fever, poor PO intake, cp 23:25 MS/extremity: Positive for decreased range of motion, laceration, pain, of the right cp hand, 23:25 Neuro: Negative for numbness, weakness, 23:25 All other systems are negative, Exam: 23:30 Constitutional: The patient appears in no acute distress, alert, awake, non-toxic, well cp developed, well nourished, uncomfortable, 23:30 Head/Face: Normocephalic, atraumatic. cp 23:30 Chest/axilla: Inspection: normal, cp 23:30 Cardiovascular: Rate: normal, Rhythm: regular, Pulses: Pulses are 2+ in right radial cp artery. 23:30 Respiratory: the patient does not display signs of respiratory distress, Respirations: normal, no use of accessory muscles, no retractions, labored breathing, is not present, 23:30 Musculoskeletal/extremity: Extremities: grossly normal except: noted in the right hand: cp marked pain to palpation, mild swelling noted dorsum of right fifth metacarpal head with 2.5 cm laceration noted. wound explored and no bone exposed, tendon intact and not exposed, mild bleeding noted, ROM: full active range of motion, in the right fifth finger, Perfusion: the extremity is normally perfused throughout, the right fifth finger Sensation intact. Vital Signs: 23:08 BP 152 / 95; Pulse 92; Resp 16; Temp 98.4; Pulse Ox 99% on R/A; Weight 81.65 kg; Height pf1 5 ft. 10 in. ; Pain 8/10; 04/25 01:30 BP 126 / 80; Pulse 78; Resp 18; Pulse Ox 98% ; Pain 5/10; kb3 04/24 23:08 Body Mass Index 25.83 (81.65 kg, 177.8 cm) pf1 04/24 23:08 Pain Scale: Adult pf1 04/25 01:30 Pain Scale: Adult kb3 Procedures: 02:00 Splinting: Splint applied to right hand using Orthoglass splint, ulna gutter type. cp applied by nurse. Examined by me, post splint application: neurovascular intact, Patient tolerated well. Laceration: 01:30 Wound Repair of 2.5cm ( 1.0in ) partial thickness laceration to dorsum of right hand at cp head of fifth metacarpal. Linear shaped.. Distal neuro/vascular/tendon intact. Anesthesia: Wound infiltrated with 6 mls of Lido/Marcaine. Wound prep: Extensive cleansing by me, Wound irrigation by me, Wound explored moderately. Skin closed with 3 4-0 Prolene using interrupted sutures and sterile technique. Dressed with Bacitracin, 4x4's. Patient tolerated well. MDM: 04/24 23:12 Patient medically screened. cp 23:30 Differential diagnosis: dislocation, open fracture, closed fracture, contusion. cp 04/25 01:27 Data reviewed: vital signs, nurses notes, radiologic studies, plain films. cp 01:27 Consideration of Admission/Observation Escalation of care including cp admission/observation considered. I considered the following discharge prescriptions or medication management in the emergency department Medications were administered in the Emergency Department. See MAR. Independent interpretation of the following test(s) in the Emergency Department X-Ray: My interpretation is images of right hand show nondisplaced fracture of distal right fifth metacarpal. Counseling: I had a detailed discussion with the patient and/or guardian regarding the historical points, exam findings, and any diagnostic results supporting the discharge/admit diagnosis, radiology results, the need for outpatient follow up, for definitive care, a hand specialist, to return to the emergency department if symptoms worsen or persist or if there are any questions or concerns that arise at home. Response to treatment: the patient's symptoms have markedly improved after treatment. Special discussion: I discussed in detail with the patient the higher chance of wound infection based on his presenting history. 04/24 23:12 Order name: XRAY Hand RIGHT 3 View cp 04/24 23:13 Order name: Dressing - Wound; Complete Time: 23:30 cp 04/24 23:13 Order name: Gloves, Sterile; Complete Time: 23:30 cp 04/24 23:13 Order name: Setup Suture Tray; Complete Time: 23:30 cp 04/25 01:07 Order name: Splint - Ulnar Gutter; Complete Time: 01:54 cp 04/25 01:07 Order name: Wound dressing; Complete Time: 01:54 cp 04/25 02:03 Order name: Sling; Complete Time: 02:03 kb3 Administered Medications: 04/24 23:29 Drug: Bupivacaine Infiltration (0.5 %) 5 ml 10 ml Infiltration once {Note: At bedside kb3 for PA to administer.} Volume: 10 ml; Route: Infiltration; 23:30 Not Given (Patient Refused): tetanus-diphtheria toxoidadult 0.5 ml IM once; Provide kb3 Vaccine Information Statement (VIS). 23:30 Drug: Ibuprofen PO 800 mg PO once Route: PO; kb3 04/25 01:56 Follow up: Response: No adverse reaction; Pain is decreased kb3 04/24 23:30 Drug: Hydrocodone-Acetaminophen PO (7.5 mg-325 mg) 1 tabs PO once; RASS on ADMIN: kb3 Combtv4, Very Agttd3, Agttd2, Rstlss1, AlertClm0, Drwsy-1, Lt Sdtn-2, Mod Sdtn-3, Dp Sdtn-4, UnArsble-5 Route: PO; 04/25 01:55 Follow up: Response: No adverse reaction; Pain is decreased 3 04/24 23:30 Drug: Lidocaine Infiltration (1 %) 5 ml 5 ml Infiltration once; to bedside {Note: At kb3 bedside for PA to administer.} Volume: 5 ml; Route: Infiltration; 04/25 01:30 Drug: CeFAZolin IM 1 grams IM once Route: IM; Site: right ventrogluteal; kb3 01:55 Follow up: Response: No adverse reaction 3 01:30 Drug: Doxycycline PO 100 mg PO once Route: PO; kb3 01:55 Follow up: Response: No adverse reaction kb3 Disposition Summary: 04/25/23 01:28 Discharge Ordered Notes: Location: Home cp Problem: new cp Symptoms: have improved cp Condition: Stable cp Diagnosis - Laceration without foreign body of right hand, initial encounter cp - Nondisplaced fracture of neck of fifth metacarpal bone, right hand, initial cp encounter for open fracture Followup: cp - With: Amrik Chavez MD - When: 2 - 3 days - Reason: Wound Recheck Discharge Instructions: - Discharge Summary Sheet cp - Boxer's Fracture cp - Laceration Care, Adult cp - Sutured Wound Care cp Forms: - Medication Reconciliation Form cp - Thank You Letter cp - Antibiotic Education cp - Prescription Opioid Use cp - Patient Portal Instructions cp - Leadership Thank You Letter cp Prescriptions: - Cephalexin 500 mg Oral Capsule - take 1 capsule by ORAL route every 8 hours for 14 days; 42 capsule; Refills: 0, cp Product Selection Permitted - Naprosyn 500 mg Oral Tablet - take 1 tablet by ORAL route 2 times per day take with food; 30 tablet; Refills: cp 0, Product Selection Permitted - Doxycycline Monohydrate 100 mg Oral Tablet - take 1 tablet by ORAL route every 12 hours for 14 days; 28 tablet; Refills: 0, cp Product Selection Permitted Addendum: 04/26/2023 08:49 Co-signature as Attending Physician, Ignacio Doran MD I agree with the assessment s p4 and plan of care. I reviewed the patient's care provided by the Advanced Practice Provider and agree with the diagnosis and treatment plan. Signatures: Dispatcher [employer] EDNE Nate Ramires PA PA cp Trista Wilder RN RN kb3 Ericka Oakes RN RN pf1 Ignacio Doran MD MD sp4 Corrections: (The following items were deleted from the chart) 04/25 23:23 04/24 01:30 Splinting: Splint applied to right hand using Orthoglass splint, ulna gerardo gutter type. applied by nurse. Examined by me, post splint application: neurovascular intact, Patient tolerated well, cp 04/25 23:24 04/24 01:30 Wound Repair of 2.5cm ( 1.0in ) partial thickness laceration to dorsum of cp right hand at head of fifth metacarpal. Linear shaped.. Distal neuro/vascular/tendon intact. Anesthesia: Wound infiltrated with 6 mls of Lido/Marcaine. Wound prep: Extensive cleansing by me, Wound irrigation by me, Wound explored moderately. Skin closed with 3 4-0 Prolene using interrupted sutures and sterile technique. Dressed with Bacitracin, 4x4's. Patient tolerated well. cp
--- NOTE | 2023-04-25 01:28 | ER ---
Nurse's Notes [facility] Name: Cole Ball Age: 27 yrs Sex: Male : 1995 Arrival Date: 04/24/2023 Time: 22:12 Bed 11 Private MD: Diagnosis: Laceration without foreign body of right hand, initial encounter;Nondisplaced fracture of neck of fifth metacarpal bone, right hand, initial encounter for open fracture Presentation: 04/24 23:08 Chief complaint: Patient states: right hand pain of 8 with laceration to outer right pf1 palm region, onset 2 hours ago. Patient stated injured right hand when he punched a stop sign. Coronavirus screen: Vaccine status: Patient reports receiving the 1st dose of the Covid vaccine. Client denies travel out of the [place] in the last 14 days. At this time, the client does not indicate any symptoms associated with coronavirus-19. Ebola Screen: Patient negative for fever greater than or equal to 101.5 degrees Fahrenheit, and additional compatible Ebola Virus Disease symptoms. Complicating Factors: There are no complicating factors for this patient. Initial Sepsis Screen: Does the patient meet any 2 criteria? HR > 90 bpm. No. Patient's initial sepsis screen is negative. Does the patient have a suspected source of infection? No. Patient's initial sepsis screen is negative. Risk Assessment: Do you want to hurt yourself or someone else? Patient reports no desire to harm self or others. 23:08 Method Of Arrival: Ambulatory pf1 23:08 Acuity: CHRIS 3 pf1 23:08 Onset of symptoms was April 24, 2023 at 21:00. kb3 Triage Assessment: 23:30 General: Appears in no apparent distress. uncomfortable, Behavior is calm, cooperative. kb3 Historical: - Allergies: 23:15 Sulfa (Sulfonamide Antibiotics); pf1 - PMHx: 23:15 Anxiety; Bipolar disorder; Depression; mitral valve prolapse; Schizophrenia; ulcerative pf1 colitis; - Immunization history:: Adult Immunizations up to date, Client reports receiving the 1st dose of the Covid vaccine, Last tetanus immunization: < 5 years ago Flu vaccine is up to date. - Social history:: Smoking status: Patient reports the use of cigarette tobacco products, smokes one pack cigarettes per day. Screenin:30 [facility] ED Fall Risk Assessment (Adult) History of falling in the last 3 months, kb3 including since admission No falls in past 3 months (0 pts) Confusion or Disorientation No (0 pts) Intoxicated or Sedated No (0 pts) Impaired Gait No (0 pts) Mobility Assist Device Used No (0 pt) Altered Elimination No (0 pt) Score/Fall Risk Level 0 - 2 = Low Risk Oriented to surroundings, Maintained a safe environment, Educated pt \T\ family on fall prevention, incl call for assistance when getting out of bed. Abuse screen: Denies threats or abuse. Denies injuries from another. Nutritional screening: No deficits noted. Tuberculosis screening: No symptoms or risk factors identified. Assessment: 23:30 General: Pt reports he punched a large metal stop sign and lacerated his right hand kb3 approximately 30 minutes [employer]. 23:30 Pain: Complains of pain in dorsum of right hand Pain does not radiate. Pain currently kb3 is 8 out of 10 on a pain scale. Quality of pain is described as aching, throbbing, Pain began 1 hour ago. Is continuous. Musculoskeletal: Swelling present in right hand Reports pain in right hand. Injury Description: Laceration sustained to dorsum of right hand is 0.5 to 2.5 cm long, not bleeding, was sustained 1-2 hours ago. is bleeding a small amount. Vital Signs: 23:08 BP 152 / 95; Pulse 92; Resp 16; Temp 98.4; Pulse Ox 99% on R/A; Weight 81.65 kg; Height pf1 5 ft. 10 in. ; Pain 8/10; 18 01:30 BP 126 / 80; Pulse 78; Resp 18; Pulse Ox 98% ; Pain 5/10; kb3 04/24 23:08 Body Mass Index 25.83 (81.65 kg, 177.8 cm) pf1 04/24 23:08 Pain Scale: Adult pf1 04/25 01:30 Pain Scale: Adult kb3 ED Course: 04/24 23:02 Patient arrived in ED. es 23:03 Nate Ramires PA is PHCP. cp 23:03 Ignacio Doran MD is Attending Physician. cp 23:08 Arm band placed on right wrist. Patient placed in an exam room, on a stretcher. kb3 23:15 Triage completed. pf1 23:30 Patient has correct armband on for positive identification. Bed in low position. Call kb3 light in reach. Provided Education on: Plan of care. 23:30 Assist provider with laceration repair on dorsum of right hand that was 2.5 cm. or less kb3 using sutures. Set up tray. Performed by Nate Ramires PA Dressed with 4X4s, Adaptic, Patient tolerated well. 23:48 XRAY Hand RIGHT 3 View In Process Unspecified. EDMS 04/25 01:26 Amrik Chavez MD is Referral Physician. cp 01:30 Orthoglass splint: Ulnar gutter/Boxer splint applied on right forearm. kb3 02:04 Patient did not have IV access during this emergency room visit. kb3 Administered Medications: 04/24 23:29 Drug: Bupivacaine Infiltration (0.5 %) 5 ml 10 ml Infiltration once {Note: At bedside kb3 for PA to administer.} Volume: 10 ml; Route: Infiltration; 23:30 Not Given (Patient Refused): tetanus-diphtheria toxoidadult 0.5 ml IM once; Provide kb3 Vaccine Information Statement (VIS). 23:30 Drug: Ibuprofen PO 800 mg PO once Route: PO; kb3 04/25 01:56 Follow up: Response: No adverse reaction; Pain is decreased [facility] 04/24 23:30 Drug: Hydrocodone-Acetaminophen PO (7.5 mg-325 mg) 1 tabs PO once; RASS on ADMIN: kb3 Combtv4, Very Agttd3, Agttd2, Rstlss1, AlertClm0, Drwsy-1, Lt Sdtn-2, Mod Sdtn-3, Dp Sdtn-4, UnArsble-5 Route: PO; 04/25 01:55 Follow up: Response: No adverse reaction; Pain is decreased 3 04/24 23:30 Drug: Lidocaine Infiltration (1 %) 5 ml 5 ml Infiltration once; to bedside {Note: At kb3 bedside for PA to administer.} Volume: 5 ml; Route: Infiltration; 04/25 01:30 Drug: CeFAZolin IM 1 grams IM once Route: IM; Site: right ventrogluteal; kb3 01:55 Follow up: Response: No adverse reaction kb3 01:30 Drug: Doxycycline PO 100 mg PO once Route: PO; kb3 01:55 Follow up: Response: No adverse reaction kb3 Medication: 04/24 23:30 VIS not applicable for this client. kb3 Outcome: 04/25 01:28 Discharge ordered by . gerardo 02:04 Discharged to home ambulatory, kb3 02:04 Condition: stable 02:04 Discharge instructions given to patient, family, Instructed on discharge instructions, follow up and referral plans. medication usage, wound care, Demonstrated understanding of instructions, follow-up care, medications, wound care, splint care, Prescriptions given X 3, 02:05 Patient left the ED. kb3 Signatures: Dispatcher [employer] EDSusana Conway Corey, PA PA cp Bradberry, Kelly, RN RN kb3 Ericka Oakes RN RN pf1 Corrections: (The following items were deleted from the chart) 02:00 04/24 00:30 General: Pt reports he punched a large metal stop sign and lacerated his kb3 right hand approximately 30 minutes [employer]. kb3
[2023-04-25] MEDS ORDERED: CEFAZOLIN SODIUM 1 GM/VIAL ONE (01:31)
[2023-04-25] MEDS ORDERED: DOXYCYCLINE 100 MG CAP PO ONE (01:31)
[2023-04-25] MEDS ORDERED: WATER FOR INJ,STERILE 10 ML ONE (01:31)
[2023-04-25 02:16] VITALS: TEMP 98.4
[2023-04-25 02:18] VITALS: BP 126/80; O2SAT 98
--- NOTE | 2023-04-25 14:34 | RAD REPORT ---
EXAM DESCRIPTION: RAD - Hand Right 3 View - 04/24/2023 11:46 pm CLINICAL HISTORY: 27 years Male, PAIN TECHNIQUE: 3 views COMPARISON: None. FINDINGS: BONES/JOINT: Complex nondisplaced fracture of the fifth metacarpal neck and distal shaft. Remaining osseous structures are intact without fracture or dislocation. Joint spaces are well-preser jamie. SOFT TISSUES: Soft tissue swelling at the fracture site. No radiopaque foreign body. IMPRESSION: 1. Complex nondisplaced fracture of the fifth metacarpal neck and distal shaft. Electronically signed by: Candelario Pink MD 04/24/2023 11:56 PM CDT Due to temporary technical issues with the PACS/Fluency reporting system, reports are being signed by the in house radiologist without review as a courtesy to ensure prompt reporting. The interpreting r adiologist is fully responsible for the content of the report.
== END 2023-04-25 02:05 | disposition home or self-care (01) ==
LOC: ER 22:12
PROC: 0HQFXZZ Repair Right Hand Skin, External Approach (ICD-10-PCS; principal; 2023-04-25)
DX: S62.606B Fracture of unspecified phalanx of right little finger, initial encounter for open fracture (principal); Z88.2 Allergy status to sulfonamides
CPT/HCPCS: 73130; 96372; 99284; 12001; J2001; J0690

== ENCOUNTER 2024-03-07 18:55 | Emergency (ER) | payer OTHER ==
--- NOTE | 2024-03-07 20:34 | EDPHYS ---
Physician Documentation [facility] Name: Cole Ball Age: 28 yrs Sex: Male : 1995 Arrival Date: 03/07/2024 Time: 18:55 Bed 9 Private MD: ED Physician Nate Crane HPI: 03/07 20:24 This 28 yrs old Male presents to ER via Ambulatory with complaints of STD ele Exposure, Penile Problem. 20:24 The patient presents with a possible STD exposure, symptoms include ulceration of the ele head of penis. Onset: The symptoms/episode began/occurred 3 day(s) ago. Modifying factors: The symptoms are alleviated by remaining still, the symptoms are aggravated by movement, pressure, sexual intercourse. Associated signs and symptoms: The patient has no apparent associated signs or symptoms. Severity of symptoms: At their worst the symptoms were mild, moderate, in the emergency department the symptoms are unchanged. The patient has not experienced similar symptoms in the past. Historical: - Allergies: 19:28 Sulfa (Sulfonamide Antibiotics); vc1 - PMHx: 19:28 Anxiety; Bipolar disorder; Depression; mitral valve prolapse; Schizophrenia; ulcerative vc1 colitis; - PSHx: 19:28 None; vc1 - Immunization history:: Client reports having NOT received the Covid vaccine. - Infectious Disease History:: Denies. - Social history:: Smoking status: Patient reports the use of cigarette tobacco products, 4-5 per day. ROS: 20:26 Constitutional: Negative for fever, chills, and weight loss, Eyes: Negative for injury, ele pain, redness, and discharge, ENT: Negative for injury, pain, and discharge, Neck: Negative for injury, pain, and swelling, Cardiovascular: Negative for chest pain, palpitations, and edema, Respiratory: Negative for shortness of breath, cough, wheezing, and pleuritic chest pain, Abdomen/GI: Negative for abdominal pain, nausea, vomiting, diarrhea, and constipation, Back: Negative for injury and pain, MS/Extremity: Negative for injury and deformity, Skin: Negative for injury, rash, and discoloration, Neuro: Negative for headache, weakness, numbness, tingling, and seizure, Psych: Negative for depression, anxiety, suicide ideation, homicidal ideation, and hallucinations, Allergy/Immunology: Negative for hives, rash, and allergies, Endocrine: Negative for neck swelling, polydipsia, polyuria, polyphagia, and marked weight changes, Hematologic/Lymphatic: Negative for swollen nodes, abnormal bleeding, and unusual bruising, 20:26 : Positive for urinary symptoms, penile pain, of the head of penis and meatus, Exam: 20:26 Constitutional: This is a well developed, well nourished patient who is awake, alert, ele and in no acute distress. Head/Face: Normocephalic, atraumatic. Eyes: Pupils equal round and reactive to light, extra-ocular motions intact. Lids and lashes normal. Conjunctiva and sclera are non-icteric and not injected. Cornea within normal limits. Periorbital areas with no swelling, redness, or edema. ENT: Nares patent. No nasal discharge, no septal abnormalities noted. Tympanic membranes are normal and external auditory canals are clear. Oropharynx with no redness, swelling, or masses, exudates, or evidence of obstruction, uvula midline. Mucous membranes moist. Neck: Trachea midline, no thyromegaly or masses palpated, and no cervical lymphadenopathy. Supple, full range of motion without nuchal rigidity, or vertebral point tenderness. No Meningismus. Chest/axilla: Normal chest wall appearance and motion. Nontender with no deformity. No lesions are appreciated. Cardiovascular: Regular rate and rhythm with a normal S1 and S2. No gallops, murmurs, or rubs. Normal PMI, no JVD. No pulse deficits. Respiratory: Lungs have equal breath sounds bilaterally, clear to auscultation and percussion. No rales, rhonchi or wheezes noted. No increased work of breathing, no retractions or nasal flaring. Abdomen/GI: Soft, non-tender, with normal bowel sounds. No distension or tympany. No guarding or rebound. No evidence of tenderness throughout. Back: No spinal tenderness. No costovertebral tenderness. Full range of motion. MS/ Extremity: Pulses equal, no cyanosis. Neurovascular intact. Full, normal range of motion. Neuro: Awake and alert, GCS 15, oriented to person, place, time, and situation. Cranial nerves II-XII grossly intact. Motor strength 5/5 in all extremities. Sensory grossly intact. Cerebellar exam normal. Normal gait. Psych: Awake, alert, with orientation to person, place and time. Behavior, mood, and affect are within normal limits. 20:26 : CVA tenderness, is absent, Male external genitalia: Patient is not circumisioned. lesion, draining, erythematous, painful, Bladder: is normal, non-distended, non-tender, Sexual behavior: the patient is sexually active, and reports a single partner, Vital Signs: 19:25 BP 157 / 96; Pulse 78; Resp 18; Temp 97; Pulse Ox 100% ; Weight 88.45 kg; Height 5 ft. vc1 8 in. ; Pain 7/10; 19:25 Body Mass Index 29.65 (88.45 kg, 172.72 cm) vc1 19:25 Pain Scale: Adult vc1 MDM: 19:02 Patient medically screened. ele 20:28 Differential diagnosis: UTI, urethritis. Data reviewed: vital signs, nurses notes. ele Consideration of Admission/Observation Escalation of care including admission/observation considered. I considered the following discharge prescriptions or medication management in the emergency department Medications were administered in the Emergency Department. See MAR. Test considered but Not performed: Labs: NO LABS. Care significantly affected by the following chronic conditions: MVP, ANXIETY, BIPOLAR, SCHIZOPHRENIA, DEPRESSION, UC. Counseling: I had a detailed discussion with the patient and/or guardian regarding the historical points, exam findings, and any diagnostic results supporting the discharge/admit diagnosis, the need for outpatient follow up, for definitive care, a family practitioner, a urologist. 03/07 21:02 Order name: HSV Culture and Typing EDMS Administered Medications: 21:41 Drug: AZITHromycin PO 1 grams PO once Route: PO; vc1 21:42 Drug: valACYclovir PO 1000 mg PO once Route: PO; vc1 21:42 Drug: Doxycycline PO 200 mg PO once Route: PO; vc1 21:42 Drug: Rocephin (cefTRIAXone) IM 1 grams IM once Route: IM; Site: right ventrogluteal; vc1 Disposition Summary: 03/07/24 20:33 Discharge Ordered Notes: Location: Home ele Problem: new ele Symptoms: are unchanged ele Condition: Stable ele Diagnosis - Unspecified sexually transmitted disease ele - Ulcer of penis - MULTIPLE ele Followup: ele - With: Private Physician - When: 2 - 3 days - Reason: Recheck today's complaints, Continuance of care, Re-evaluation by your physician Followup: ele - With: Arjun Chirinos MD - When: 5 - 6 days - Reason: Recheck today's complaints, Re-evaluation by your physician Followup: [facility] - With: Calin Fenton DO - When: 2 - 3 days - Reason: Recheck today's complaints, Continuance of care, Re-evaluation by your physician Discharge Instructions: - Discharge Summary Sheet ele - Genital Herpes ele - Herpes Simplex Test [facility] - Preventing Sexually Transmitted Infections, Adult [facility] Forms: - Medication Reconciliation Form [facility] - Antibiotic Education ele - Prescription Opioid Use [facility] - Patient Portal Instructions [facility] - Leadership Thank You Letter [facility] Prescriptions: - Valtrex 1 gram Oral tablet - take 1 tablet ORAL route 3 times per day; 21 tablet; Refills: 0, Product [facility] Selection Permitted - acetaminophen-codeine 300-30 mg Oral tablet - take 2 tablet ORAL route every 6 hours as needed for pain; 16 tablet; Refills: ele 0, Product Selection Permitted - Doxycycline Hyclate 100 mg Oral Tablet - take 1 tablet ORAL route every 12 hours; 20 tablet; Refills: 0, Product [facility] Selection Permitted Signatures: Dispatcher [employer] Nate Fong MD MD cha Calcote, Vanessa RN RN vc1 Corrections: (The following items were deleted from the chart) 21:02 20:24 Wound Culture+[id number].LAB.[id number] ordered. DANGELO PIERSON
--- NOTE | 2024-03-07 20:34 | ER ---
Nurse's Notes [facility] Name: Cole Ball Age: 28 yrs Sex: Male : 1995 Arrival Date: 03/07/2024 Time: 18:55 Bed 9 Private MD: Diagnosis: Unspecified sexually transmitted disease;Ulcer of penis-MULTIPLE Presentation: 03/07 19:25 Chief complaint: Patient states: want to get looked at by a Dr. I [facility] and I had unprotected sex, now I have sores and it has pus coming out of it. It ruiz and it is painful. Coronavirus screen: Client denies travel out of the [place] in the last 14 days. At this time, the client does not indicate any symptoms associated with coronavirus-19. Ebola Screen: Patient negative for fever greater than or equal to 101.5 degrees Fahrenheit, and additional compatible Ebola Virus Disease symptoms Patient denies exposure to infectious person. Patient denies travel to an Ebola-affected area in the 21 days before illness onset. No symptoms or risks identified at this time. Initial Sepsis Screen: Does the patient meet any 2 criteria? No. Patient's initial sepsis screen is negative. Does the patient have a suspected source of infection? No. Patient's initial sepsis screen is negative. Risk Assessment: Do you want to hurt yourself or someone else? Patient reports no desire to harm self or others. Onset of symptoms was March 04, 2024. 19:25 Method Of Arrival: Ambulatory vc1 19:25 Acuity: CHRIS 4 vc1 Triage Assessment: 21:43 General: Appears in no apparent distress. Behavior is calm, cooperative, appropriate vc1 for age. Pain: Complains of pain in head of penis and shaft of penis Pain does not radiate. Pain currently is 7 out of 10 on a pain scale. EENT: No deficits noted. No signs and/or symptoms were reported regarding the EENT system. Neuro: Level of Consciousness is awake, alert, obeys commands, Oriented to person, place, time, situation, Appropriate for age. Cardiovascular: No deficits noted. Respiratory: Airway is patent Respiratory effort is even, unlabored, Respiratory pattern is regular, symmetrical. GI: No deficits noted. No signs and/or symptoms were reported involving the gastrointestinal system. : Reports pain to penis with lesions. Derm: Skin is intact, is healthy with good turgor, Skin is dry, Skin is normal, Skin temperature is warm. Musculoskeletal: No deficits noted. No signs and/or symptoms reported regarding the musculoskeletal system. Historical: - Allergies: 19:28 Sulfa (Sulfonamide Antibiotics); vc1 - PMHx: 19:28 Anxiety; Bipolar disorder; Depression; mitral valve prolapse; Schizophrenia; ulcerative vc1 colitis; - PSHx: 19:28 None; vc1 - Immunization history:: Client reports having NOT received the Covid vaccine. - Infectious Disease History:: Denies. - Social history:: Smoking status: Patient reports the use of cigarette tobacco products, 4-5 per day. Screenin:29 Abuse screen: Denies threats or abuse. Nutritional screening: No deficits noted. vc1 Tuberculosis screening: No symptoms or risk factors identified. 21:42 [facility] ED Fall Risk Assessment (Adult) History of falling in the last 3 months, vc1 including since admission No falls in past 3 months (0 pts) Confusion or Disorientation No (0 pts) Intoxicated or Sedated No (0 pts) Impaired Gait No (0 pts) Mobility Assist Device Used No (0 pt) Altered Elimination Score/Fall Risk Level 0 - 2 = Low Risk Oriented to surroundings, Maintained a safe environment, Educated pt \T\ family on fall prevention, incl call for assistance when getting out of bed. Vital Signs: 19:25 BP 157 / 96; Pulse 78; Resp 18; Temp 97; Pulse Ox 100% ; Weight 88.45 kg; Height 5 ft. vc1 8 in. ; Pain 7/10; 19:25 Body Mass Index 29.65 (88.45 kg, 172.72 cm) vc1 19:25 Pain Scale: Adult vc1 ED Course: 18:57 Patient arrived in ED. rg4 19:02 Nate Crane MD is Attending Physician. ele 19:28 Triage completed. vc1 19:29 Arm band placed on left wrist. vc1 20:29 Arjun Chirinos MD is Referral Physician. ele 20:30 Calin Fenton DO is Referral Physician. ele 21:42 No provider procedures requiring assistance completed. Patient did not have IV access vc1 during this emergency room visit. 21:45 Provided Education on: use protection with sexual partners. vc1 Administered Medications: 21:41 Drug: AZITHromycin PO 1 grams PO once Route: PO; vc1 21:42 Drug: valACYclovir PO 1000 mg PO once Route: PO; vc1 21:42 Drug: Doxycycline PO 200 mg PO once Route: PO; vc1 21:42 Drug: Rocephin (cefTRIAXone) IM 1 grams IM once Route: IM; Site: right ventrogluteal; vc1 Medication: 21:44 VIS not applicable for this client. vc1 Outcome: 20:33 Discharge ordered by . ele :44 Discharged to home ambulatory, vc1 :44 Condition: good 21:44 Discharge instructions given to patient, Instructed on discharge instructions, follow up and referral plans. medication usage, Demonstrated understanding of instructions, follow-up care, medications, Prescriptions given X 3, :45 Patient left the ED. vc1 Signatures: Nate Crane MD MD cha Garcia, Rubi rg4 Kimberly Felipe, RN RN vc1
[2024-03-07] MEDS ORDERED: CEFTRIAXONE 1000 MG/VIAL ONE (21:24)
[2024-03-07] MEDS ORDERED: LIDOCAINE 1% MPF 2 ML AMPULE ONE (21:24)
[2024-03-07] MEDS ORDERED: DOXYCYCLINE 100 MG CAP PO ONE (21:25)
[2024-03-07] MEDS ORDERED: AZITHROMYCIN 250 MG TAB ONE (21:25)
[2024-03-07] MEDS ORDERED: VALACYCLOVIR 500 MG TAB ONE (21:28)
[2024-03-08 04:55] VITALS: BP 157/96; TEMP 97; O2SAT 100
[2024-03-12 14:45] LABS: HSV Source Penis
== END 2024-03-07 21:45 | disposition home or self-care (01) ==
LOC: ER 18:55
DX: A64 Unspecified sexually transmitted disease (principal); N48.5 Ulcer of penis
CPT/HCPCS: 87255; J0696; 96372; 99284